=== PATIENT | female | born 1995 | race Caucasian/White ===

== ENCOUNTER 2020-04-11 20:51 | Emergency (ER) | payer MEDICAID, SELFPAY ==
[2020-04-11 23:40] VITALS: BP 151/75; PULSE 87; RESP 18; TEMP 37.1; O2SAT 98; BMI 30.3
[2020-04-12 00:29] VITALS: BP 138/81; PULSE 89; RESP 18; TEMP 36.7; O2SAT 100
[2020-04-12 02:10] LABS: MANUAL DIFF FLAG NO
[2020-04-12 02:13] LABS: Basophils Percent Auto 0.3 % (0-2); Eosinophils Absolute Auto 0.2 X10*3/uL (0.0-0.4); Eosinophils Percent Auto 2.4 % (0-4); Hemoglobin 12.6 g/dl (12.0-16.0); Imm Gran Abs Auto 0.03 X10*3/uL (0.00-0.03); Imm Gran Pct Auto 0.3 % (0.0-0.4); Lymphocytes Absolute Auto 3.4 X10*3/uL (1.2-4.9); Lymphocytes Percent Auto 33.2 % (20-40); Mean Corpuscular HGB Conc 31.5 g/dl (31.0-35.0); Mean Corpuscular Hemoglobin 27.2 pg (27.0-33.0); Mean Corpuscular Volume 86.4 fL (80-98); Mean Platelet Volume 12.7 fL (9.4-12.3); Monocytes Absolute Auto 0.7 X10*3/uL (0.1-1.2); Monocytes Percent Auto 6.6 % (2-11); Neutrophils Absolute Auto 5.8 X10*3/uL (2.0-8.3); Neutrophils Percent Auto 57.2 % (45-73); Platelet Count 162 X10*3/uL (160-400); Red Blood Count 4.63 X10*6/uL (4.20-5.50); Red Cell Distribution Width 12.5 % (11.0-16.0); White Blood Count 10.2 X10*3/uL (4.8-10.8)
--- NOTE | 2020-04-12 02:25 | CT_ITS ---
EXAMINATION: CT ABDOMEN AND PELVIS WITH CONTRAST CLINICAL INFORMATION: bilateral lower quadrant pain COMPARISON: 07/23/2017 TECHNIQUE: Multidetector volumetric images were obtained from the superior aspect of the liver through the pubic symphysis following administration 85 mL of Omnipaque 350 intravenous contrast. Sagittal and coronal reformatted images were obtained on the technologist's workstation. Oral contrast: No This CT examination was performed using dose optimization techniques as appropriate, variously including the following: *Automated exposure control *Adjustment of mA and/or kV according to patient size (this includes techniques or standardized protocols for targeted exams where dose is matched to indication/reason for exam; i.e. extremities or head) *Use of iterative reconstruction technique DLP: 968 mGy-cm FINDINGS: LUNG BASES: The visualized lung bases are unremarkable. LIVER, GALLBLADDER, AND BILIARY TREE: The liver is normal in size, shape, and attenuation. Right hepatic lobe measures 17.5 cm craniocaudal, similar to prior No focal hepatic lesion or biliary ductal dilatation is present. The gallbladder is unremarkable with no evidence of radiopaque gallstones, gallbladder wall thickening, or obvious pericholecystic inflammatory changes. PANCREAS: Unremarkable. SPLEEN: Measures 14.6 cm in greatest diameter, consistent mild splenomegaly. No focal abnormalities. ADRENAL GLANDS: Unremarkable. KIDNEYS AND URETERS: The kidneys are normal in size, shape, and attenuation. No hydronephrosis, hydroureter, or calculi seen. No perinephric stranding. BLADDER: Unremarkable. GASTROINTESTINAL TRACT: Moderate volume of stool is present throughout the colon. Stomach, small bowel, and colon are normal in caliber without wall thickening or surrounding inflammatory changes. Appendix is normal. No intraperitoneal free fluid or free air. ABDOMINAL WALL: No significant hernia is appreciated. LYMPH NODES: Numerous subcentimeter mesenteric lymph nodes are present, within normal limits by size criteria. No retroperitoneal adenopathy. VASCULAR: Unremarkable. PELVIC VISCERA: Uterus appears normal in size without focal abnormalities. There is a 3.8 cm cyst at the right ovary. Left ovary is normal in appearance. OSSEOUS STRUCTURES: Minimal degenerative osteophyte formation in the and SI joints. No acute osseous abnormalities. Bone mineralization is normal. CT/CT abdomen pelvis w con IMPRESSION: No acute intra-abdominal or intrapelvic abnormalities. A 2.8 cm simple appearing right ovarian cyst, possibly a prominent follicular cyst. No acute abnormalities are identified in the pelvis. Borderline splenomegaly, unchanged. Moderate volume of stool throughout the colon.
--- NOTE | 2020-04-12 02:26 | ED.ABDPAIN ---
HPI - Abdominal Pain General Chief Complaint: Abdominal Pain Stated Complaint: ABD PAIN Time Seen by Provider: 04/12/20 02:15 Source: patient Mode of arrival: ambulatory Limitations: no limitations History of Present Illness HPI narrative: Patient comes to the emergency room complaining of bilateral lower quadrant pain. Patient states the pain has been ongoing for about 3 weeks. Patient has history of right-sided ovarian cyst which was diagnosed in May of 2019. 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 Patient states she has a Nexplanon, she has vaginal spotting which which is baseline for her. Patient denies pain with urination. MD elicited complaint: abdominal pain Related Data Allergies Allergy/AdvReac Type Severity Reaction Status Date / Time No Known Allergies Allergy Verified 04/11/20 23:39 [No Known Allergies*] Review of Systems Review of Systems Constitutional : No Weight loss, No Fever, No Chills, No Night Sweats, No Fatigue, No Malaise ENT/Mouth : No Hearing loss, No Ear Pain, No Nasal Congestion, No Sinus Pain, No Hoarseness, No sore throat, No Rhinorrhea, No Swallowing Difficulty Eyes: No Eye Pain, No Swelling, No Redness, No Foreign Body, No Discharge, No Vision Changes Cardiovascular : No Chest Pain, No SOB, No Dyspnea on Exertion, No Orthopnea, No Edema, No Palpitations Respiratory : No Cough, No Sputum, No Wheezing, No Smoke Exposure, No Dyspnea Gastrointestinal : No Nausea, No Vomiting, No Diarrhea, No Constipation, complaining of bilateral lower quadrant pain, No Hematochezia, No Melena Genitourinary : no irregular bleeding, No Dysuria, No Urinary Frequency, No Hematuria, No Urinary Incontinence, No Urgency, No Flank Pain, No Urinary Flow Changes, No Hesitancy Musculoskeletal : No joint pain, No Myalgias, No Joint Swelling Skin : No Skin Lesions, No rash Neuro : No Weakness, No Numbness, No Paresthesias, No Loss of Consciousness, No Dizziness, No Headache Psych : No Anxiety/Panic, No Depression, No SI/HI/AH/VH, No Social Issues, Heme/Lymph: No Bruising, No Bleeding,No Lymphadenopathy Endocrine : No Polyuria, No Polydipsia, No Temperature Intolerance Physical Exam Vital Signs: Vital Signs: Last Vital Signs Temp 98.0 F 04/12/20 00:29 Pulse 89 04/12/20 00:29 Resp 18 04/12/20 00:29 BP 138/81 04/12/20 00:29 Pulse Ox 100 04/12/20 00:29 Body Mass Index 30.3 Appearance: Alert. Oriented X3. No acute distress. Eyes: Pupils equal, round and reactive to light. ENT: Pharynx normal. Neck: Normal inspection. Neck supple. No lymph nodes noted. No crepitus CVS: Normal heart rate and rhythm. Pulses normal. Normal S1 and S2 Respiratory: No respiratory distress. Breath sounds normal. No Wheezing. No rales Abdomen: Soft , [id number] tenderness in bilateral lower quadrants, more evident on the left side, questionable mild rebound tenderness on the left side No rigidity. No distention. good BS x4 Skin: Skin warm and dry. Normal skin color. Normal skin turgor. Extremities: No lower extremity edema. No lower extremity edema. No Lacerations. No Rash Neuro: Oriented X 3. No motor deficit. No sensory deficit. Moving all extermities. No slurred speech. Course Course Course Narrative: I discussed labs and imaging with the patient, no acute process, however I discussed with the patient that this may represent early appendicitis, at this time the appendix was visualized and is within normal limits. Patient was instructed to monitor her symptoms MDM - Abdominal Pain Lab Data Result diagrams: 04/12/20 03:53 04/12/20 02:05 Labs: Lab Results 04/12/20 04/12/20 04/12/20 Range/Units 02:05 02:05 02:05 WBC 10.2 (4.8-10.8) X10*3/uL RBC 4.63 (4.20-5.50) X10*6/uL Hgb 12.6 (12.0-16.0) g/dl Hct 40.0 (37-47) % MCV 86.4 (80-98) fL MCH 27.2 (27.0-33.0) pg MCHC 31.5 (31.0-35.0) g/dl RDW 12.5 (11.0-16.0) % Plt Count 162 (160-400) X10*3/uL MPV 12.7 H (9.4-12.3) fL Immature Gran % (Auto) 0.3 (0.0-0.4) % Neut % (Auto) 57.2 (45-73) % Lymph % (Auto) 33.2 (20-40) % [place] % (Auto) 6.6 (2-11) % Eos % (Auto) 2.4 (0-4) % Baso % (Auto) 0.3 (0-2) % Lymph # (Auto) 3.4 (1.2-4.9) X10*3/uL [place] # (Auto) 0.7 (0.1-1.2) X10*3/uL Eos # (Auto) 0.2 (0.0-0.4) X10*3/uL Baso # (Auto) 0.0 (0.0-0.2) X10*3/uL Abs Immat Gran (auto) 0.03 (0.00-0.03) X10*3/uL Absolute Neuts (auto) 5.8 (2.0-8.3) X10*3/uL Absolute Nucleated RBC 0.000 (0.0-0.012) X10*3/uL Nucleated RBC % (auto) 0.0 (0.0-0.2) /100WBC Hold Blue Top SEE NOTE Sodium 140 (135-145) mmol/L Potassium 4.3 (3.3-5.1) mmol/l Chloride 107 (96-108) mmol/L Carbon Dioxide 26 (22-29) mmol/L Anion Gap 11 L (12-20) BUN 9 (9-16) mg/dL Creatinine 0.58 (0.5-1.4) mg/dL Estim Creat Clear Calc 203.6 Estimated GFR > 60 Random Glucose 98 (60-115) mg/dL Calcium 9.3 (8.4-10.2) mg/dL Total Bilirubin 0.8 (0.0-1.0) mg/dL Direct Bilirubin (0.0-0.5) mg/dL AST 14 (5-31) U/L ALT 18 (0-31) U/L Alkaline Phosphatase 117 (39-117) U/L Total Protein 7.1 (6.5-8.0) g/dL Albumin 4.1 (3.5-5.0) g/dL Urine Color Urine Appearance Urine pH (5.0-8.0) Ur Specific Wilmer (1.005-1.025) Urine Protein (NEG-TRACE) MG/DL Urine Glucose (UA) (NEG) MG/DL Urine Ketones (NEG) MG/DL Urine Blood (NEG) Urine Nitrite (NEG) Ur Leukocyte Esterase (NEG) Urine Test (NEGATIVE) 04/12/20 04/12/20 04/12/20 Range/Units 02:42 03:53 03:53 WBC 9.0 (4.8-10.8) X10*3/uL RBC 4.74 (4.20-5.50) X10*6/uL Hgb 12.6 (12.0-16.0) g/dl Hct 41.2 (37-47) % MCV 86.9 (80-98) fL MCH 26.6 L (27.0-33.0) pg MCHC 30.6 L (31.0-35.0) g/dl RDW 12.3 (11.0-16.0) % Plt Count 169 (160-400) X10*3/uL MPV 12.7 H (9.4-12.3) fL Immature Gran % (Auto) 0.3 (0.0-0.4) % Neut % (Auto) 55.8 (45-73) % Lymph % (Auto) 35.3 (20-40) % [place] % (Auto) 5.9 (2-11) % Eos % (Auto) 2.3 (0-4) % Baso % (Auto) 0.4 (0-2) % Lymph # (Auto) 3.2 (1.2-4.9) X10*3/uL [place] # (Auto) 0.5 (0.1-1.2) X10*3/uL Eos # (Auto) 0.2 (0.0-0.4) X10*3/uL Baso # (Auto) 0.0 (0.0-0.2) X10*3/uL Abs Immat Gran (auto) 0.03 (0.00-0.03) X10*3/uL Absolute Neuts (auto) 5.0 (2.0-8.3) X10*3/uL Absolute Nucleated RBC 0.000 (0.0-0.012) X10*3/uL Nucleated RBC % (auto) 0.0 (0.0-0.2) /100WBC Hold Blue Top Sodium (135-145) mmol/L Potassium (3.3-5.1) mmol/l Chloride (96-108) mmol/L Carbon Dioxide (22-29) mmol/L Anion Gap (12-20) BUN (9-16) mg/dL Creatinine (0.5-1.4) mg/dL Estim Creat Clear Calc Estimated GFR Random Glucose (60-115) mg/dL Calcium (8.4-10.2) mg/dL Total Bilirubin 0.9 (0.0-1.0) mg/dL Direct Bilirubin 0.4 (0.0-0.5) mg/dL AST 13 (5-31) U/L ALT 18 (0-31) U/L Alkaline Phosphatase 117 (39-117) U/L Total Protein 7.1 (6.5-8.0) g/dL Albumin 4.1 (3.5-5.0) g/dL Urine Color YELLOW Urine Appearance CLEAR Urine pH 6.0 (5.0-8.0) Ur Specific Wilmer >= 1.030 H (1.005-1.025) Urine Protein NEG (NEG-TRACE) MG/DL Urine Glucose (UA) NEG (NEG) MG/DL Urine Ketones NEG (NEG) MG/DL Urine Blood NEG (NEG) Urine Nitrite NEG (NEG) Ur Leukocyte Esterase NEG (NEG) Urine Test NEGATIVE (NEGATIVE) Discharge Plan Discharge Clinical Impression: Abdominal pain Qualifiers: Abdominal location: generalized Qualified Code(s): R10.84 - Generalized abdominal pain Patient Disposition: Home, Self-Care Instructions: Abdominal Pain (ED) Additional Instructions: Please follow-up with your primary care physician tomorrow. If you have any worsening or new symptoms, please return to the emergency room or call 911 REPLACED BY [facility] Past Medical History Medical History HPV in female Hypothyroid Ovarian cyst Preeclampsia Social History Social History Advance Directives: No
[2020-04-12 02:34] LABS: Alanine Aminotransferase 18 U/L (0-31); Albumin Level 4.1 g/dL (3.5-5.0); Alkaline Phosphatase 117 U/L (39-117); Anion Gap 11 (12-20); Aspartate Amino Transferase 14 U/L (5-31); Bilirubin Total 0.8 mg/dL (0.0-1.0); Blood Urea Nitrogen 9 mg/dL (9-16); Calcium 9.3 mg/dL (8.4-10.2); Carbon Dioxide 26 mmol/L (22-29); Chloride 107 mmol/L (96-108); Creatinine Clr Calc Pharmacy 203.6; Estimated Glomerular Filt Rate > 60; Glucose Random 98 mg/dL (60-115); Potassium 4.3 mmol/l (3.3-5.1); Sodium 140 mmol/L (135-145); Total Protein 7.1 g/dL (6.5-8.0)
[2020-04-12 03:10] LABS: Glucose Urine UA NEG (NEG); Leukocyte Esterase Urine NEG (NEG); Nitrite Urine NEG (NEG); Specific Gravity - Urine >= 1.030 (1.005-1.025); Urine Blood NEG (NEG); Urine Ketones NEG (NEG); Urine Protein NEG (NEG-TRACE)
[2020-04-12 03:11] LABS: Appearance Urine CLEAR; Color Urine YELLOW
[2020-04-12 03:23] LABS: UPreg QC Valid YES; Urine Pregnancy NEGATIVE (NEGATIVE)
[2020-04-12 03:57] LABS: MANUAL DIFF FLAG NO
[2020-04-12 03:58] LABS: Basophils Percent Auto 0.4 % (0-2); Eosinophils Absolute Auto 0.2 X10*3/uL (0.0-0.4); Eosinophils Percent Auto 2.3 % (0-4); Hematocrit 41.2 % (37-47); Hemoglobin 12.6 g/dl (12.0-16.0); Imm Gran Abs Auto 0.03 X10*3/uL (0.00-0.03); Imm Gran Pct Auto 0.3 % (0.0-0.4); Lymphocytes Absolute Auto 3.2 X10*3/uL (1.2-4.9); Lymphocytes Percent Auto 35.3 % (20-40); Mean Corpuscular HGB Conc 30.6 g/dl (31.0-35.0); Mean Corpuscular Hemoglobin 26.6 pg (27.0-33.0); Mean Corpuscular Volume 86.9 fL (80-98); Mean Platelet Volume 12.7 fL (9.4-12.3); Monocytes Absolute Auto 0.5 X10*3/uL (0.1-1.2); Monocytes Percent Auto 5.9 % (2-11); Neutrophils Percent Auto 55.8 % (45-73); Platelet Count 169 X10*3/uL (160-400); Red Blood Count 4.74 X10*6/uL (4.20-5.50); Red Cell Distribution Width 12.3 % (11.0-16.0)
[2020-04-12] MEDS: iohexoL 350 MG/ML 100 ML INFUS..BTL 85 ML IV (04:04)
[2020-04-12 04:32] LABS: Alanine Aminotransferase 18 U/L (0-31); Albumin Level 4.1 g/dL (3.5-5.0); Alkaline Phosphatase 117 U/L (39-117); Aspartate Amino Transferase 13 U/L (5-31); Bilirubin Direct 0.4 mg/dL (0.0-0.5); Bilirubin Total 0.9 mg/dL (0.0-1.0); Total Protein 7.1 g/dL (6.5-8.0)
[2020-04-12] MEDS: Ketorolac Tromethamine 30 MG/ML VIAL IVPUSH (06:07)
== END 2020-04-12 06:14 | disposition home or self-care (01) ==
PROVIDERS: Emergency Provider Emergency Medicine; PCP Internal Medicine
DX: R10.30 Lower abdominal pain, unspecified (principal); N83.201 Unspecified ovarian cyst, right side
CPT/HCPCS: 36415; 74177; 80053; 80076; 81003; 81025; 82248; 85025; 96374; 99283; 99284; J1885; Q9967

== ENCOUNTER 2020-04-16 10:37 | Emergency (ER) | payer MEDICAID, SELFPAY ==
[2020-04-16 10:56] VITALS: BP 171/89; PULSE 68; RESP 16; TEMP 36.9; O2SAT 100; BMI 30.3
--- NOTE | 2020-04-16 11:00 | ED_ITS ---
HPI - Dental/Oral General Chief complaint: Dental/Oral Stated complaint: TOOTHACHE Time Seen by Provider: 04/16/20 10:59 Source: patient Mode of arrival: ambulatory Limitations: no limitations History of Present Illness HPI Narrative: States has tried [id number] Tylenol and ibuprofen has not helped has been doing mouth washes and Orajel without relief. MD Complaint: tooth pain Location: Tooth # (31/32) Teeth map: 1. Partially Chipped with extensive decay. Onset (ago): day(s) (3 days ) Severity: severe Relieving factors: nothing Treatment prior to arrival: topical analgesic, oral analgesic and other (Await ing dentist appointment) Related Data Previous Rx's Medication Instructions Recorded ibuprofen 800 mg PO Q8H PRN #30 tab 04/16/20 oxycodone-acetaminophen [Percocet] 1 tab PO Q8H PRN 3 Days #7 tab 04/16/20 penicillin V potassium 500 mg PO BID 10 Days #20 tab 04/16/20 Allergies Allergy/AdvReac Type Severity Reaction Status Date / Time No Known Allergies Allergy Verified 04/11/20 23:39 [No Known Allergies*] Review of Systems Review of Systems: Constitutional: No Weight loss, No Fever, No Chills, No Night Sweats, No Fatigue, No Malaise ENT/Mouth: No Hearing loss, No Ear Pain, No Nasal Congestion, No Sinus Pain, No Hoarseness, No sore throat, No Rhinorrhea, No Swallowing Difficulty Eyes: No Eye Pain, No Swelling, No Redness, No Foreign Body, No Discharge, No Vision Changes Cardiovascular: No Chest Pain, No SOB Respiratory: No Cough, No Sputum, No Wheezing, No Smoke Exposure, No Dyspnea Gastrointestinal: Negative Genitourinary: Negative Musculoskeletal: No joint pain, No Myalgias, No Joint Swelling Skin: No Skin Lesions, No rash Neuro: Negative Psych: No Social Issues Heme/Lymph: No Bruising, No Bleeding,No Lymphadenopathy Endocrine: Negative Yes all other systems are reviewed and are negative PMFSH Past Medical History Medical History HPV in female Hypothyroid Ovarian cyst Preeclampsia Social History Social History Advance Directives: No Advance Directives Information Provided: Yes Physical Exam Vital Signs: Vital Signs: Reviewed HENMT: Teeth image: 1. Number 31 partially chipped at the midline with exten sive decay number [address] Number [address] No obvious signs of gingival infection or abscess. Resp: Auscultation: clear to auscultation bilaterally Cardio: Rhythm: regular rhythm Heart sounds: S1 normal heart sound present and S2 normal heart sound present MDM - Dental/Oral MDM Narrative Medical decision making narrative: Dental fracture with extensive decay having pain no obvious signs or symptoms of abscess. Will possibly need extraction awaiting referral from dentist for or surgery for this. Mass pat reviewed no concerning pattern. Has tried [id number] Tylenol and ibuprofen will give her prescription strength ibuprofen, stronger analgesia and antibiotics with close outpatient follow-up. Differential Diagnosis Differential diagnosis: Likely dental caries, toothache, dental abscess and fracture of tooth; Unlikely gingival abscess and aphthous ulcer Medical Records Attestation: I reviewed the patient's medical records. Lab Data Attestation: I reviewed the patient's lab results. Discharge Plan Discharge Clinical Impression: Pain due to dental caries Patient Disposition: Home, Self-Care Instructions: Toothache (ED) Additional Instructions: Soft food diet Push fluids Mouth rinses Continue to use your mouthwash Chew on the good side Avoid any very cold or very hot food Take your antibiotic as prescribed Ibuprofen for [id number] pain Percocet only for severe pain; this is very addictive narcotic medication only take this for short course. Do not drink alcohol or drive motor vehicle or operating any machinery. Follow-up with a dentist tomorrow for further evaluation and treatment. Return if any concerns or worsening symptoms Thank you Prescriptions: New ibuprofen 800 mg tablet 800 mg PO Q8H PRN (Reason: pain) Qty: 30 RF: 0 oxycodone-acetaminophen [Percocet] 5-325 mg tablet 1 tab PO Q8H PRN (Reason: pain) 3 Days Qty: 7 RF: 0 penicillin V potassium 500 mg tablet 500 mg PO BID 10 Days Qty: 20 RF: 0 Referrals: [facility], dental [Other] - 2 days Iva Howard MD [Primary Care Provider] - 1 week
== END 2020-04-16 11:27 | disposition home or self-care (01) ==
LOC: HO.ED 11:03
PROVIDERS: Emergency Provider Emergency Medicine Emergency Medical Services; PCP Internal Medicine
DX: K02.9 Dental caries, unspecified (principal)
CPT/HCPCS: 99283; 99284

== ENCOUNTER 2022-12-03 19:06 | Emergency (ER) | payer MEDICAID, SELFPAY ==
--- NOTE | ~2022-12-03 | XR_ITS ---
EXAMINATION: XR CHEST CLINICAL INFORMATION: Chest pain COMPARISON: Previous chest x-ray August 2019 TECHNIQUE: Frontal view of the chest was obtained. FINDINGS: No significant abnormality is noted involving the heart, lungs, mediastinum, bony thorax or soft tissues. XR/XR chest 1V IMPRESSION: Unremarkable examination.
--- NOTE | 2022-12-03 19:09 | ECG_ITS ---
Test Reason : PALPATION Blood Pressure : / mmHG Vent. Rate : 075 BPM Atrial Rate : 075 BPM P-R Int : 142 ms QRS Dur : 088 ms QT Int : 356 ms P-R-T Axes : 002 052 004 degrees QTc Int : 397 ms Normal sinus rhythm Normal ECG When compared with ECG of 21-AUG-2017 19:12, ST no longer elevated in Anterior leads Nonspecific T wave abnormality now evident in Anterior leads Referred By: Thomas Carroll Electronically Signed By:LUCIUS GU
--- NOTE | 2022-12-03 19:42 | ED_ITS ---
HPI - General Adult General Chief complaint: Dizziness Stated complaint: Palpitations/Dizziness Time Seen by Provider: 12/03/22 23:59 Source: patient Mode of arrival: ambulatory Limitations: no limitations History of Present Illness HPI narrative: 27-year-old female came in for evaluation of multiple syncopal episode over the past 2 months. Today patient felt she almost going to pass out but never did and was feeling left arm numbness. Patient stated before the syncope she gets a feeling of nauseous and she feels palpitation. No SOB, no CP, no blurry vision, no headache, no neck pain, no abdominal pain, no nausea, no diarrhea, has been eating and drinking okay with no concern of dehydration. Patient declined chance of being had tubal ligation, no vaginal bleed or discharge. Related Data Previous Rx's Medication Instructions Recorded ibuprofen 800 mg tablet 800 mg PO Q8H PRN pain #30 tabs 04/16/20 oxycodone-acetaminophen 5 mg-325 1 tab PO Q8H PRN pain 3 days #7 04/16/20 mg tablet (Percocet) tabs penicillin V potassium 500 mg 500 mg PO BID 10 days #20 tabs 04/16/20 tablet Allergies Allergy/AdvReac Type Severity Reaction Status Date / Time No Known Allergies Allergy Verified 04/11/20 23:39 [No Known Allergies*] Review of Systems 2 Review of Systems: All other systems are reviewed and are negative Constitutional: Reports as per HPI and Reports no additional constitutional complaints Eyes: Reports as per HPI and Reports no additional eye complaints Reports system reviewed and no additional complaints, except as documented Cardiovascular: Reports as per HPI and Reports no additional cardiovascular complaints Respiratory: Reports as per HPI and Reports no additional respiratory complaints Gastrointestinal: Reports as per HPI and Reports no additional gastrointestinal complaints Genitourinary: Reports no additional female genitourinary complaints Musculoskeletal: Reports no additional musculoskeletal complaints Skin/Breast: Reports system reviewed and no additional complaints, except as docu Psychiatric: Reports no additional psychiatric complaints Endocrine: Reports no additional endocrine complaints Hematologic/Lymphatic: Reports no additional hematologic/lymphatic complaints Allergic/Immunologic: Reports no additional allergic/immunologic complaints Reports system reviewed and no additional complaints, except as documented and Reports Abnormal speech present PMFSH Past Medical History Medical History HPV in female Hypothyroid Ovarian cyst Preeclampsia Social History Social History Advance Directives: No Advance Directives Information Provided: No Physical Exam ED Vital Signs: Vital Signs - 24 hr 12/03/22 19:45 12/03/22 23:50 Temperature 98.0 F 98.3 F Pulse Rate 77 67 Respiratory Rate 20 18 Blood Pressure 143/77 H 100/64 Pulse Oximetry 100 98 Oxygen Delivery Method Room Air Room Air BMI result Body Mass Index 37.0 Vital signs have been reviewed as appeared to be correct. Blood pressure normal. Heart rate normal. Respiration rate normal. Temperature normal. Oxygen saturation normal. Appearance: Alert. Oriented X3. No acute distress. Head: Normal external exam. Normocephalic. Atraumatic. No Mtz signs noted. No raccoon eyes noted Eyes: PERRLA. EOMI. Conjunctiva and sclera normal. Eyelids normal. ENT: TM's Normal. Pharynx normal. Uvula midline. Moist mucous membranes. No trismus noted. No drooling noted. No muffled voice noted. Neck: Normal inspection. Neck supple. FROM. No adenopathy. Thyroid Normal. No meningeal signs. No neck mass noted. CVS: Normal heart rate and rhythm. Heart sound normal. No murmurs noted. Pulses normal throughout. Respiratory: No respiratory distress. Painless inspiration. Breath sounds normal. No wheezes/rales/rhonchi noted. Chest nontender. No accessory muscle usage noted or decreased air movement noted. Abdomen: Soft and nontender. Bowel sounds normal in all 4 quadrants. No distention noted. No organomegaly noted. No visible injury noted. Back: No CVA tenderness. Full range of motion noted. Skin: Skin warm and dry. Normal skin color. Normal skin turgor. No rashes/lesions/lacerations noted. Extremities: No lower extremity edema. Extremities exhibit normal range of motion. Extremities nontender. Neuro: Oriented X 3. Cranial nerve exam: II-XII are grossly intact No motor deficit. No sensory deficit. Reflexes normal. Course Course Course Narrative: This is an RME: Additional HPI, ROS, PE not included below will be deferred to primary provider. Patient is a 26 year old female presenting with multiple syncopal episodes. She reports that these episodes have caused her to have falls, once down from the second floor down the stairs. She reports that she feels nauseous when these spells go on. She reports a history of hyperthyroidism, not on medications. Plan- labs, urine, ekg Reevaluation(s) Reevaluation #1: 27-year-old female otherwise healthy presented with multiple episodes of syncope over the past 2 months, normal looking EKG and labs. As discussed with the patient she will need to follow up with [facility] as an outpatient. Time: 00:25 Medical Decision Making Differential Diagnosis Differential Diagnoses: The differential diagnosis associated with the presentation includes (Dysrhythmia, ACS, pulmonary embolism, pneumonia, pneumothorax) Admission/Observation Consideration of admission/observation: Escalation of care including admission/observation considered Lab Data MDM Lab Attestation statement: I reviewed the patient's lab results. 12/03/22 20:23 12/03/22 20: Labs: Lab Results 12/03/22 12/03/22 12/03/22 Range/Units 20:23 20:23 20:23 WBC 9.3 (4.8-10.8) X10*3/uL RBC 4.43 (4.20-5.50) X10*6/uL Hgb 11.5 L (12.0-16.0) g/dl Hct 37.3 (37.0-47.0) % MCV 84.2 (80.0-98.0) fL MCH 26.0 L (27.0-33.0) pg MCHC 30.8 L (31.0-35.0) g/dl RDW 15.3 (11.0-16.0) % Plt Count 189 (160-400) X10*3/uL MPV 12.2 (9.4-12.3) fL Immature Gran % (Auto) 0.5 H (0.0-0.4) % Neut % (Auto) 56.7 (45-73) % Lymph % (Auto) 33.4 (20-40) % [place] % (Auto) 5.8 (2-11) % Eos % (Auto) 3.0 (0-4) % Baso % (Auto) 0.6 (0-2) % Lymph # (Auto) 3.1 (1.2-4.9) X10*3/uL [place] # (Auto) 0.5 (0.1-1.2) X10*3/uL Eos # (Auto) 0.3 (0.0-0.4) X10*3/uL Baso # (Auto) 0.1 (0.0-0.2) X10*3/uL Abs Immat Gran (auto) 0.05 H (0.00-0.03) X10*3/uL Absolute Neuts (auto) 5.3 (2.0-8.3) x10*3/uL Absolute Nucleated RBC 0.000 (0.0-0.012) X10*3/uL Nucleated RBC % (auto) 0.0 (0.0-0.2) /100WBC PT (11.1-13.3) SEC INR (0.9-1.1) D-Dimer High Sensitivty NG/ML Sodium 138 (135-145) mmol/L Potassium 3.7 (3.3-5.1) mmol/L Chloride 110 H (96-108) mmol/L Carbon Dioxide 23 (22-29) mmol/L Anion Gap 9 L (12-20) BUN 11 (9-16) mg/dL Creatinine 0.80 (0.5-1.4) mg/dL Estim Creat Clear Calc 155.7 Estimated GFR > 60 Random Glucose 100 (60-115) mg/dL Calcium 9.7 (8.4-10.2) mg/dL Magnesium 2.0 (1.6-2.6) mg/dL Total Bilirubin 0.8 (0.0-1.0) mg/dL AST 16 (5-31) U/L ALT 24 (0-31) U/L Alkaline Phosphatase 64 (39-117) U/L Troponin I High Sens < 2.7 (<3.5-17.0) ng/L Total Protein 7.7 (6.5-8.0) g/dL Albumin 4.1 (3.5-5.0) g/dL Urine Color Urine Appearance Urine pH (5.0-9.0) Ur Specific [place] (1.005-1.025) Urine Protein (Neg-Trace) mg/dL Urine Glucose (UA) (Negative) mg/dL Urine Ketones (Negative) mg/dL Urine Blood (Negative) Urine Nitrite (Negative) Ur Leukocyte Esterase (Negative) COVID-19 (THEA) (Negative) COVID-19 Clin Com 12/03/22 12/03/22 12/03/22 Range/Units 20:23 20:23 20:23 WBC (4.8-10.8) X10*3/uL RBC (4.20-5.50) X10*6/uL Hgb (12.0-16.0) g/dl Hct (37.0-47.0) % MCV (80.0-98.0) fL MCH (27.0-33.0) pg MCHC (31.0-35.0) g/dl RDW (11.0-16.0) % Plt Count (160-400) X10*3/uL MPV (9.4-12.3) fL Immature Gran % (Auto) (0.0-0.4) % Neut % (Auto) (45-73) % Lymph % (Auto) (20-40) % [place] % (Auto) (2-11) % Eos % (Auto) (0-4) % Baso % (Auto) (0-2) % Lymph # (Auto) (1.2-4.9) X10*3/uL [place] # (Auto) (0.1-1.2) X10*3/uL Eos # (Auto) (0.0-0.4) X10*3/uL Baso # (Auto) (0.0-0.2) X10*3/uL Abs Immat Gran (auto) (0.00-0.03) X10*3/uL Absolute Neuts (auto) (2.0-8.3) x10*3/uL Absolute Nucleated RBC (0.0-0.012) X10*3/uL Nucleated RBC % (auto) (0.0-0.2) /100WBC PT 10.7 L (11.1-13.3) SEC INR 0.9 (0.9-1.1) D-Dimer High Sensitivty 189 NG/ML Sodium (135-145) mmol/L Potassium (3.3-5.1) mmol/L Chloride (96-108) mmol/L Carbon Dioxide (22-29) mmol/L Anion Gap (12-20) BUN (9-16) mg/dL Creatinine (0.5-1.4) mg/dL Estim Creat Clear Calc Estimated GFR Random Glucose (60-115) mg/dL Calcium (8.4-10.2) mg/dL Magnesium 2.0 (1.6-2.6) mg/dL Total Bilirubin (0.0-1.0) mg/dL AST (5-31) U/L ALT (0-31) U/L Alkaline Phosphatase (39-117) U/L Troponin I High Sens (<3.5-17.0) ng/L Total Protein (6.5-8.0) g/dL Albumin (3.5-5.0) g/dL Urine Color Urine Appearance Urine pH (5.0-9.0) Ur Specific [place] (1.005-1.025) Urine Protein (Neg-Trace) mg/dL Urine Glucose (UA) (Negative) mg/dL Urine Ketones (Negative) mg/dL Urine Blood (Negative) Urine Nitrite (Negative) Ur Leukocyte Esterase (Negative) COVID-19 (THEA) Negative (Negative) COVID-19 Clin Com See Note 12/03/22 Range/Units 21:04 WBC (4.8-10.8) X10*3/uL RBC (4.20-5.50) X10*6/uL Hgb (12.0-16.0) g/dl Hct (37.0-47.0) % MCV (80.0-98.0) fL MCH (27.0-33.0) pg MCHC (31.0-35.0) g/dl RDW (11.0-16.0) % Plt Count (160-400) X10*3/uL MPV (9.4-12.3) fL Immature Gran % (Auto) (0.0-0.4) % Neut % (Auto) (45-73) % Lymph % (Auto) (20-40) % [place] % (Auto) (2-11) % Eos % (Auto) (0-4) % Baso % (Auto) (0-2) % Lymph # (Auto) (1.2-4.9) X10*3/uL [place] # (Auto) (0.1-1.2) X10*3/uL Eos # (Auto) (0.0-0.4) X10*3/uL Baso # (Auto) (0.0-0.2) X10*3/uL Abs Immat Gran (auto) (0.00-0.03) X10*3/uL Absolute Neuts (auto) (2.0-8.3) x10*3/uL Absolute Nucleated RBC (0.0-0.012) X10*3/uL Nucleated RBC % (auto) (0.0-0.2) /100WBC PT (11.1-13.3) SEC INR (0.9-1.1) D-Dimer High Sensitivty NG/ML Sodium (135-145) mmol/L Potassium (3.3-5.1) mmol/L Chloride (96-108) mmol/L Carbon Dioxide (22-29) mmol/L Anion Gap (12-20) BUN (9-16) mg/dL Creatinine (0.5-1.4) mg/dL Estim Creat Clear Calc Estimated GFR Random Glucose (60-115) mg/dL Calcium (8.4-10.2) mg/dL Magnesium (1.6-2.6) mg/dL Total Bilirubin (0.0-1.0) mg/dL AST (5-31) U/L ALT (0-31) U/L Alkaline Phosphatase (39-117) U/L Troponin I High Sens (<3.5-17.0) ng/L Total Protein (6.5-8.0) g/dL Albumin (3.5-5.0) g/dL Urine Color Yellow Urine Appearance Clear Urine pH 6.5 (5.0-9.0) Ur Specific [place] 1.025 (1.005-1.025) Urine Protein Negative (Neg-Trace) mg/dL Urine Glucose (UA) Negative (Negative) mg/dL Urine Ketones Negative (Negative) mg/dL Urine Blood Negative (Negative) Urine Nitrite Negative (Negative) Ur Leukocyte Esterase Negative (Negative) COVID-19 (THEA) (Negative) COVID-19 Clin Com Independent Interpretation I performed an independent interpretation of an: EKG (Normal sinus rhythm at 70 meds, normal axis deviation, normal intervals, nonspecific ST-T changes.) and Plain X-Ray (Unremarkable examination.) Radiology Impression Discussion of test interpretation with radiology: I have reviewed the radiologist's reading. Scores Heart Score History: -0- slightly suspicious ECG: -0- normal Age: -0- < or = 45 Risk factory: -0- no risk factors known Troponin: -0- < or = normal limit Score: 0 Risk: 1.7% Discharge Plan Discharge Clinical Impression: Syncope and collapse Patient Disposition: Home, Self-Care Instructions: Syncope in Older Adults (ED) Prescriptions: No Action ibuprofen 800 mg tablet 800 mg PO Q8H PRN (Reason: pain) Qty: 30 0RF oxycodone-acetaminophen [Percocet] 5-325 mg tablet 1 tab PO Q8H PRN (Reason: pain) 3 Days Qty: 7 0RF penicillin V potassium 500 mg tablet 500 mg PO BID 10 Days Qty: 20 0RF Referrals: Iva Howard MD [Primary Care Provider] - Deshaun Watts MD [Physician] -
[2022-12-03 19:45] VITALS: BP 143/77; PULSE 77; RESP 20; TEMP 36.7; O2SAT 100; BMI 37.0
[2022-12-03 20:31] LABS: MANUAL DIFF FLAG NO
[2022-12-03 20:32] LABS: Basophils Absolute Auto 0.1 X10*3/uL (0.0-0.2); Basophils Percent Auto 0.6 % (0-2); Eosinophils Absolute Auto 0.3 X10*3/uL (0.0-0.4); Hematocrit 37.3 % (37.0-47.0); Hemoglobin 11.5 g/dl (12.0-16.0); Imm Gran Abs Auto 0.05 X10*3/uL (0.00-0.03); Imm Gran Pct Auto 0.5 % (0.0-0.4); Lymphocytes Absolute Auto 3.1 X10*3/uL (1.2-4.9); Lymphocytes Percent Auto 33.4 % (20-40); Mean Corpuscular HGB Conc 30.8 g/dl (31.0-35.0); Mean Corpuscular Volume 84.2 fL (80.0-98.0); Mean Platelet Volume 12.2 fL (9.4-12.3); Monocytes Absolute Auto 0.5 X10*3/uL (0.1-1.2); Monocytes Percent Auto 5.8 % (2-11); Neutrophils Absolute Auto 5.3 x10*3/uL (2.0-8.3); Neutrophils Percent Auto 56.7 % (45-73); Platelet Count 189 X10*3/uL (160-400); Red Blood Count 4.43 X10*6/uL (4.20-5.50); Red Cell Distribution Width 15.3 % (11.0-16.0); White Blood Count 9.3 X10*3/uL (4.8-10.8)
[2022-12-03 20:48] LABS: INTERNATIONAL NORM RATIO 0.9 (0.9-1.1); Prothrombin Time 10.7 SEC (11.1-13.3)
[2022-12-03 20:50] LABS: COVID-19 Test Negative (Negative); D Dimer High Sensitivity 189 NG/ML; IDNOW Serial# 08D9AD1C
[2022-12-03 20:52] LABS: Alanine Aminotransferase 24 U/L (0-31); Albumin Level 4.1 g/dL (3.5-5.0); Alkaline Phosphatase 64 U/L (39-117); Anion Gap 9 (12-20); Aspartate Amino Transferase 16 U/L (5-31); Bilirubin Total 0.8 mg/dL (0.0-1.0); Blood Urea Nitrogen 11 mg/dL (9-16); Calcium 9.7 mg/dL (8.4-10.2); Carbon Dioxide 23 mmol/L (22-29); Chloride 110 mmol/L (96-108); Creatinine Clr Calc Pharmacy 155.7; Estimated Glomerular Filt Rate > 60; Glucose Random 100 mg/dL (60-115); Potassium 3.7 mmol/L (3.3-5.1); Sodium 138 mmol/L (135-145); Total Protein 7.7 g/dL (6.5-8.0)
[2022-12-03 21:17] LABS: Appearance Urine Clear; Color Urine Yellow; Glucose Urine UA Negative (Negative); Leukocyte Esterase Urine Negative (Negative); Nitrite Urine Negative (Negative); PH 6.5 (5.0-9.0); Specific Gravity - Urine 1.025 (1.005-1.025); Urine Blood Negative (Negative); Urine Ketones Negative (Negative); Urine Protein Negative (Neg-Trace)
[2022-12-03 21:26] LABS: Troponin-I High Sensitivity < 2.7 ng/L (<3.5-17.0)
[2022-12-03 23:50] VITALS: BP 100/64; PULSE 67; RESP 18; TEMP 36.8; O2SAT 98
[2022-12-04 00:26] LABS: UPreg QC Valid YES; Urine Pregnancy NEGATIVE (NEGATIVE)
[2022-12-04 01:48] VITALS: BP 110/52; PULSE 76; RESP 18; TEMP 36.7; O2SAT 98
[2022-12-04 03:51] VITALS: BP 115/61; PULSE 75; RESP 18; TEMP 36.7; O2SAT 98
== END 2022-12-04 03:58 | disposition home or self-care (01) ==
PROVIDERS: Physician Assistant; Emergency Provider Emergency Medicine; PCP Internal Medicine
DX: R55 Syncope and collapse (principal); R00.2 Palpitations; R42 Dizziness and giddiness; Z20.822 Contact with and (suspected) exposure to COVID-19; Z20.828 Contact with and (suspected) exposure to other viral communicable diseases; Z79.899 Other long term (current) drug therapy
CPT/HCPCS: 36415; 71045; 80053; 81003; 81025; 83735; 84484; 85025; 85379; 85610; 87635; 93005; 99284

== ENCOUNTER 2022-12-29 21:16 | Emergency (ER) | payer MEDICAID, SELFPAY ==
[2022-12-29 21:40] VITALS: BP 145/59; PULSE 79; RESP 17; TEMP 36.7; O2SAT 98; BMI 35.9
[2022-12-29 23:09] LABS: COVID-19 Test Negative (Negative); IDNOW Serial# 08D9AD1C; IDNOW Serial# BCCEAD1C; Influenza A Negative (Negative); Influenza B2 Negative (Negative)
--- NOTE | 2022-12-29 23:33 | ED.GENADULT ---
HPI - General Adult General Chief complaint: General Medical Stated complaint: Sore throat, dental pain on left side Time Seen by Provider: 12/29/22 22:55 Source: patient Mode of arrival: ambulatory Limitations: no limitations History of Present Illness HPI narrative: Patient is a 27-year-old female presenting to the emergency department with complaint of dental pain to left upper jaw as well as sore throat. Patient states the dental pain began approximately 2 days ago, sore throat yesterday. Denies fevers. States she has had increased stress, that her CT recently delivered cans and she has been at the that. She took 800 mg ibuprofen with little relief. Called her dentist but was unable to get appointment for 3-4 weeks. Denies cough or shortness of breath. Denies any discharge or drainage from affected tooth. complaint: Dental pain, sore throat Onset (ago): day(s) Location: mouth Radiation: non-radiation Severity: severe Quality: aching Pain Consistency: constant Relieving factors: none Exacerbating factors: none Associated symptoms: other (Sore throat) Treatments prior to arrival: NSAID Related Data Previous Rx's Medication Instructions Recorded ibuprofen 800 mg tablet 800 mg PO Q8H PRN pain #30 tabs 04/16/20 oxycodone-acetaminophen 5 mg-325 1 tab PO Q8H PRN pain 3 days #7 04/16/20 mg tablet (Percocet) tabs penicillin V potassium 500 mg 500 mg PO BID 10 days #20 tabs 04/16/20 tablet amoxicillin 875 mg-potassium 1 tab PO BID #20 tabs 12/30/22 clavulanate 125 mg tablet Allergies Allergy/AdvReac Type Severity Reaction Status Date / Time No Known Allergies Allergy Verified 04/11/20 23:39 [No Known Allergies*] Review of Systems Review of Systems: As per HPI. Yes all other systems are reviewed and are negative Constitutional: Constitutional: Reports as per HPI PMF Past Medical History Medical History HPV in female Hypothyroid Ovarian cyst Preeclampsia Social History Social History Advance Directives: No Advance Directives Information Provided: No Physical Exam ED Vital Signs: Vital Signs - 24 hr 12/29/22 21:40 Temperature 98.1 F Pulse Rate 79 Respiratory Rate 17 Blood Pressure 145/59 H Pulse Oximetry 98 Oxygen Delivery Method Room Air BMI result Body Mass Index 35.9 Vital signs have been reviewed and appear to be correct. Blood pressure normal. Heart rate normal. Respiratory rate normal. Temperature normal. Oxygen saturation normal. Const General: cooperative, healthy appearing and no acute distress Orientation/consciousness: oriented to person, oriented to place, oriented to time and patient oriented x3 Limitations: no limitations HENMT Head: Yes normocephalic and Yes atraumatic Ears: external ears normal General nose exam: Normal external nose present Face and sinus: Yes face symmetric Mouth: oropharynx normal and moist mucous membranes Teeth and gingiva: abnormal tooth and associated gingiva (#16) upper left tender, with associated gingival edema and enamel fractured and poor dentition Throat: Yes uvula midline, Yes posterior oropharynx abnormal (Positive erythema, no edema or exudates) and No uvular edema Eyes Pupils: Equal, round and reactive pupils present Neck Neck: Yes normal visual inspection, Yes no lymphadenopathy and Yes supple Resp Effort & Inspection: normal respiratory effort and able to speak in complete sentences Auscultation: clear to auscultation bilaterally Cardio Rate: regular rate Rhythm: regular rhythm Heart sounds: S1 normal heart sound present and S2 normal heart sound present GI Palpation (GI): Soft to palpation and nontender Auscultation: normoactive bowel sounds General: Yes no CVA tenderness Back/Spine/Pelvis Back: no CVA tenderness Skin General skin exam: elasticity normal and turgor normal Neuro General: oriented to person, oriented to place, oriented to time, patient oriented x3, moves all extremities, no focal motor deficits and CN's II-XI intact bilaterally Cranial nerves: Yes Equal, round and reactive pupils present Cognition (Neuro): normal cognition Extrem General: Yes full ROM, Yes no pedal edema and Yes no calf tenderness Psych Mental Status: mental status grossly normal Affect: normal affect Thought process: Normal thought process present Medical Decision Making Medical Decision Making MDM Narrative: Patient is a 27-year-old female presenting to the emergency department with complaint of dental pain to left upper jaw as well as sore throat. On exam patient is awake, A+Ox3, VS WNL, afebrile, normal neurological exam without focal deficits, physical exam findings as above. Given reported symptoms and physical exam findings, initial differential includes dental pain, dental abscess, strep pharyngitis, viral illness. Strep swab positive, Covid and flu negative. Patient updated on results and all questions answered. Will prescribe Augmentin which will cover strep as well as dental infection. Instructed patient to contact dentist office to establish an appointment. Advised to gargle with warm salt water several times daily. Tylenol and ibuprofen as needed for pain or fever. Return precautions discussed at bedside. Patient verbalized understanding of and agreement with plan. Differential Diagnosis Differential Diagnoses: The differential diagnosis associated with the presentation includes As per [facility]. Lab Data [facility] Lab Attestation statement: I reviewed the patient's lab results. As per [facility]. Labs: Lab Results 12/29/22 12/30/22 Range/Units 22:40 00:53 COVID-19 (THEA) Negative (Negative) COVID-19 Clin Com See Note Influenza Type A (ELIJAH) Negative (Negative) Influenza Type B (ELIJAH) Negative (Negative) Influenza A & B Note See Note S. pyogenes GrpA ELIJAH Positive A (Negative) External Record Review External record reviewed: Inpatient record, Office record and Outpatient record Prescription Management I considered prescription management with: Antibiotic Discharge Plan Discharge Clinical Impression: Acute streptococcal pharyngitis, Dental infection Patient Disposition: Home, Self-Care Instructions: Pharyngitis (ED), Strep Throat (DC) Additional Instructions: You were evaluated in the emergency department today for a sore throat and dental pain. Your strep swab was positive. Your COVID and flu swabs were negative. You are being prescribed Augmentin which is an antibiotic that will treat both your strep throat and your dental infection. Complete the full course of antibiotics as prescribed. Be sure to drink adequate fluids. You can use Tylenol and ibuprofen per package directions as needed for discomfort or fever. You can also gargle with warm salt water several times daily. Follow-up with your primary care provider this week. Return to the emergency department if you develop difficulty swallowing, worsening pain, shortness of breath, are unable to swallow your saliva, or any other concerning symptoms. Please contact your dentist to schedule an appointment. Prescriptions: New amoxicillin-pot clavulanate 875-125 mg tablet 1 tab PO BID Qty: 20 0RF No Action ibuprofen 800 mg tablet 800 mg PO Q8H PRN (Reason: pain) Qty: 30 0RF oxycodone-acetaminophen [Percocet] 5-325 mg tablet 1 tab PO Q8H PRN (Reason: pain) 3 Days Qty: 7 0RF penicillin V potassium 500 mg tablet 500 mg PO BID 10 Days Qty: 20 0RF Stand Alone Forms: Work/School Release
[2022-12-30 01:06] LABS: IDNOW Serial# 08D9AD1C; Strep A Nucleic Acid Positive (Negative)
== END 2022-12-30 02:14 | disposition home or self-care (01) ==
PROVIDERS: Emergency Provider Emergency Medicine; PCP Internal Medicine
DX: J02.0 Streptococcal pharyngitis (principal); K04.7 Periapical abscess without sinus; Z20.822 Contact with and (suspected) exposure to COVID-19; Z20.828 Contact with and (suspected) exposure to other viral communicable diseases; Z79.899 Other long term (current) drug therapy
CPT/HCPCS: 87502; 87635; 87651; 99283; 99284

== ENCOUNTER 2023-02-13 09:48 | Outpatient (REF) | payer MEDICAID, SELFPAY ==
[2023-02-13 11:03] LABS: MANUAL DIFF FLAG NO
[2023-02-13 11:14] LABS: Basophils Absolute Auto 0.1 X10*3/uL (0.0-0.2); Basophils Percent Auto 0.6 % (0-2); Eosinophils Absolute Auto 0.2 X10*3/uL (0.0-0.4); Eosinophils Percent Auto 2.5 % (0-4); Hematocrit 40.1 % (37.0-47.0); Hemoglobin 12.2 g/dl (12.0-16.0); Imm Gran Abs Auto 0.06 X10*3/uL (0.00-0.03); Imm Gran Pct Auto 0.7 % (0.0-0.4); Mean Corpuscular HGB Conc 30.4 g/dl (31.0-35.0); Mean Corpuscular Hemoglobin 26.1 pg (27.0-33.0); Mean Corpuscular Volume 85.9 fL (80.0-98.0); Mean Platelet Volume 13.1 fL (9.4-12.3); Monocytes Absolute Auto 0.4 X10*3/uL (0.1-1.2); Monocytes Percent Auto 4.7 % (2-11); Neutrophils Absolute Auto 5.4 x10*3/uL (2.0-8.3); Neutrophils Percent Auto 66.5 % (45-73); Platelet Count 192 X10*3/uL (160-400); Red Blood Count 4.67 X10*6/uL (4.20-5.50); White Blood Count 8.1 X10*3/uL (4.8-10.8)
[2023-02-13 11:44] LABS: Anion Gap 9 (12-20); Blood Urea Nitrogen 9 mg/dL (9-16); Calcium 9.8 mg/dL (8.4-10.2); Carbon Dioxide 26 mmol/L (22-29); Chloride 107 mmol/L (96-108); Estimated Glomerular Filt Rate > 60; Glucose Random 85 mg/dL (60-115); Potassium 4.1 mmol/L (3.3-5.1); Sodium 138 mmol/L (135-145)
[2023-02-13 11:53] LABS: Cholesterol 186 mg/dL (<200); HDL Cholesterol 46 mg/dL (>40); LDL Cholesterol Calculated 118 mg/dL (<100); Triglycerides 111 mg/dL (<150)
[2023-02-13 11:56] LABS: Erythrocyte Sedimentation Rate 12 MM/HR (0-20)
[2023-02-13 11:57] LABS: HBS Num1 5.37 mIU/mL (0-7.99); HBsAGNum1 0.33 S/CO (0.00-0.99); Hepatitis A Antibody IgM 0.21 Index (0-0.79); Hepatitis B Core Antibody Nonreactive (Nonreactive); Hepatitis B Surface Antigen Negative (Negative); ~HepC Num1 0.09 S/CO (0.00-0.79); ~Hepatitis A Antibody IgM Nonreactive (Nonreactive); ~Hepatitis B Surface Antibody NONREACTIVE (Nonreactive); ~Hepatitis C Antibody Nonreactive (Nonreactive)
[2023-02-13 12:08] LABS: Ferritin 14 ng/mL (10-122); Vitamin D 25-OH Total 13.6 ng/mL (>30)
[2023-02-13 12:32] LABS: Reflex LDLD? No
[2023-02-13 14:02] LABS: Free T4 (Free Thyroxine) 1.08 ng/dL (0.71-1.85); TSH reflex Free T4 0.36 uIU/mL (0.32-4.0); Thyroid Stimulating Hormone 0.36 uIU/mL (0.32-4.0)
[2023-02-14 11:24] LABS: Triiodothyronine T3 Free 3.2 pg/mL (2.3-4.2); Triiodothyronine T3 Total 146 ng/dL (76-181)
[2023-02-14 12:58] LABS: Rubella IgG Antibody 2.77 Index
== END 2023-02-13 09:49 | disposition home or self-care (01) ==
LOC: HO.HHCL 09:48
PROVIDERS: Visit Provider Internal Medicine
DX: Z00.00 Encounter for general adult medical examination without abnormal findings (principal); E05.90 Thyrotoxicosis, unspecified without thyrotoxic crisis or storm; D64.89 Other specified anemias
CPT/HCPCS: 36415; 80048; 80061; 82306; 82728; 84436; 84439; 84443; 84480; 84481; 85025; 85652; 86704; 86706; 86709; 86735; 86762; 86765; 86803; 87340

== ENCOUNTER 2023-02-25 13:46 | Emergency (ER) | payer MEDICAID, SELFPAY ==
--- NOTE | ~2023-02-25 | CT_ITS ---
EXAMINATION: CT ABDOMEN AND PELVIS WITH CONTRAST CLINICAL INFORMATION: Right lower quadrant pain. COMPARISON: None available. TECHNIQUE: Multidetector volumetric images were obtained from the superior aspect of the liver through the pubic symphysis following administration 85 mL of Omnipaque 350 intravenous contrast. Sagittal and coronal reformatted images were obtained on the technologist's workstation. Oral contrast: No This CT examination was performed using dose optimization techniques as appropriate, variously including the following: *Automated exposure control *Adjustment of mA and/or kV according to patient size (this includes techniques or standardized protocols for targeted exams where dose is matched to indication/reason for exam; i.e. extremities or head) *Use of iterative reconstruction technique DLP: 927 mGy-cm FINDINGS: LUNG BASES: The visualized lung bases are unremarkable. LIVER, GALLBLADDER, AND BILIARY TREE: The liver is normal in size, shape, and attenuation. No focal hepatic lesion or biliary ductal dilatation is present. The gallbladder is unremarkable with no evidence of radiopaque gallstones, gallbladder wall thickening, or obvious pericholecystic inflammatory changes. PANCREAS: Unremarkable. SPLEEN: The spleen is mildly enlarged measuring up to 15 cm. ADRENAL GLANDS: Unremarkable. KIDNEYS AND URETERS: The kidneys are normal in size, shape, and attenuation. There is mild right hydronephrosis and proximal right hydroureter to the level of a 3.5 mm proximal right ureteric calculus. There is no left-sided hydronephrosis or hydroureter BLADDER: Unremarkable. GASTROINTESTINAL TRACT: The small and large bowel are unremarkable. The appendix is unremarkable. ABDOMINAL WALL: No significant hernia is appreciated. LYMPH NODES: Normal. VASCULAR: Unremarkable. PELVIC VISCERA: Unremarkable. OSSEOUS STRUCTURES: Unremarkable. CT/CT abdomen pelvis w IV con IMPRESSION: 3.5 mm proximal right ureteric calculus with mild proximal right hydroureter and hydronephrosis. Fleischner guidelines were followed.
[2023-02-25 13:51] VITALS: BP 140/84; PULSE 72; O2SAT 98
--- NOTE | 2023-02-25 13:52 | ED_ITS ---
HPI - General Adult General Chief complaint: Abdominal Pain Stated complaint: RLQ PAIN X 1.5 HOURS Time Seen by Provider: 02/25/23 19:58 Source: patient Mode of arrival: ambulatory Limitations: no limitations History of Present Illness HPI narrative: Patient is a 16-year-old female presents emergency department for evaluation of right lower quadrant pain. Sudden onset 1.5 hours prior to arrival. She was sitting down relaxing when the pain started suddenly. First began in the right flank/back and radiated into the right lower quadrant of the abdomen. Had associated nausea but no vomiting. At this time pain has somewhat improved but is not completely resolved. She denies any history of similar pain in the past. She denies fevers, chills, constipation, diarrhea, hematochezia, melena, dysuria, urinary frequency/urgency/hesitancy, received a [place] a, possibility of . Denies history of similar pain in the past. Related Data Previous Rx's Medication Instructions Recorded ibuprofen 800 mg tablet 800 mg PO Q8H PRN pain #30 tabs 04/16/20 oxycodone-acetaminophen 5 mg-325 1 tab PO Q8H PRN pain 3 days #7 04/16/20 mg tablet (Percocet) tabs penicillin V potassium 500 mg 500 mg PO BID 10 days #20 tabs 04/16/20 tablet amoxicillin 875 mg-potassium 1 tab PO BID #20 tabs 12/30/22 clavulanate 125 mg tablet ciprofloxacin HCl 500 mg tablet 500 mg PO BID #13 tabs 02/25/23 naproxen 500 mg tablet 500 mg PO BID #20 tabs 02/25/23 oxycodone 5 mg tablet 5 mg PO Q6H PRN pain #10 tabs 02/25/23 tamsulosin 0.4 mg capsule 0.4 mg PO BEDTIME #14 caps 02/25/23 Allergies Allergy/AdvReac Type Severity Reaction Status Date / Time No Known Allergies Allergy Verified 04/11/20 23:39 [No Known Allergies*] Review of Systems 2 Review of Systems: Yes all other systems are reviewed and are negative [facility] Past Medical History Attestation statement: The following information was validated with the patient. Source: old records reviewed Medical History Preeclampsia Hypothyroid HPV in female Ovarian cyst Social History Social History Alcohol intake: current Alcohol intake frequency: holidays/special occasions only Smoked in Last 30 Days: No Use of substances other than those prescribed or required for medical reasons: Yes Substance Use Type: Marijuana Advance Directives: No Physical Exam ED Vital Signs: Vital Signs - 24 hr 02/25/23 14:13 02/25/23 19:11 Temperature 97.1 F Pulse Rate 68 68 Respiratory Rate 18 18 Blood Pressure 125/72 125/77 Pulse Oximetry 100 100 Oxygen Delivery Method Room Air Room Air BMI result Body Mass Index 35.9 Appearance: Alert.?Oriented to person, place and time. No acute distress.?Normal affect. Eyes: Pupils equal, round and reactive to light.? ENT: Pharynx normal.?? Neck: Normal inspection.? Neck supple.?? CVS: Heart sounds normal. Normal heart rate and rhythm.? Pulses normal.?? Respiratory: No respiratory distress.? Lung sounds clear to auscultation bilaterally?? Abdomen: Soft with right lower quadrant tenderness to palpation. No rigidity. No guarding. No distention. Normoactive bowel sounds. Right CVA tenderness. Skin: Skin warm and dry.? Normal skin color.? Extremities: No lower extremity edema.? Neuro: Moves all extremities spontaneously. Sensation intact bilaterally. Ambulates with normal steady gait. Course Course Course Narrative: This is an RME: Additional HPI, ROS, PE not included below will be deferred to primary provider. [age] old female presents of right lower quadrant pain that started around noon been nature and ever since w/ a/c nausea. Hx of tubal in may. Comes in by ambulance. Plan labs, urine 1413 Reports period just started in the waiting room Reevaluation(s) Reevaluation #1: Urinalysis indicates microscopic hematuria and pyuria, with presence of squamous epithelial cells concerning for UTI versus urogenital contamination. CT revealing a 3.5 mm proximal ureteral calculi with mild hydroureter and hydronephrosis, likely the etiology of pain. We will treat to cover infection, note patient follow-up with Urology, tamsulosin, naproxen, and reviewed worrisome signs and symptoms that would warrant re-evaluation in the emergency department. All questions answered. Stable for discharge. Time: 22:30 Medications Administered Generic Name Dose Route Start Last Admin Trade Name Freq PRN Reason Stop Dose Admin Sodium Chloride 1,000 mls @ 999 mls/hr 02/25/23 20:30 02/25/23 20:34 Ns IV 02/25/23 21:30 999 mls/hr .Q1H1M ANDRES Administration Medical Decision Making Medical Decision Making [facility] Narrative: Patient is a 27-year-old female presents emergency department for evaluation of sudden-onset right flank/right lower quadrant pain as per HPI. She has notable tenderness upon palpation upon the examination. Overall support uncomfortable but is afebrile without tachycardia tachypnea or hypoxia. Will obtain CBC to evaluate for leukocytosis/ anemia, CMP and lipase to evaluate for abnormal electrolytes /abnormal renal function/ abnormal hepatic/biliary function, CT of the abdomen and pelvis and Urinalysis. Patient received 1 L normal saline IV fluid, declines pain medication at this time. Differential Diagnosis Differential Diagnoses: The differential diagnosis associated with the presentation includes (Urinary tract infection, pyelonephritis, hydronephrosis, ureteral calculi, appendicitis, colitis, muscular strain) Admission/Observation Consideration of admission/observation: Escalation of care including admission/observation considered (See course narrative for further detail) Lab Data [facility] Lab Attestation statement: I reviewed the patient's lab results. CBC is without leukocytosis or anemia. CMP is overall unremarkable. Urinalysis with microscopic hematuria, nitrates negative but pyuria present; 4+ urine bacteria, presence of squamous epithelial cells concerning for UTI versus urogenital contamination 02/25/23 14:23 02/25/23 14:23 Labs: Lab Results 02/25/23 02/25/23 Range/Units 14:23 19:19 WBC 8.4 (4.8-10.8) X10*3/uL RBC 4.56 (4.20-5.50) X10*6/uL Hgb 12.1 (12.0-16.0) g/dl Hct 39.3 (37.0-47.0) % MCV 86.2 (80.0-98.0) fL MCH 26.5 L (27.0-33.0) pg MCHC 30.8 L (31.0-35.0) g/dl RDW 14.9 (11.0-16.0) % Plt Count 190 (160-400) X10*3/uL MPV 12.9 H (9.4-12.3) fL Immature Gran % (Auto) 0.2 (0.0-0.4) % Neut % (Auto) 66.7 (45-73) % Lymph % (Auto) 24.9 (20-40) % Power % (Auto) 5.8 (2-11) % Eos % (Auto) 1.9 (0-4) % Baso % (Auto) 0.5 (0-2) % Lymph # (Auto) 2.1 (1.2-4.9) X10*3/uL Power # (Auto) 0.5 (0.1-1.2) X10*3/uL Eos # (Auto) 0.2 (0.0-0.4) X10*3/uL Baso # (Auto) 0.0 (0.0-0.2) X10*3/uL Abs Immat Gran (auto) 0.02 (0.00-0.03) X10*3/uL Absolute Neuts (auto) 5.6 (2.0-8.3) x10*3/uL Absolute Nucleated RBC 0.000 (0.0-0.012) X10*3/uL Nucleated RBC % (auto) 0.0 (0.0-0.2) /100WBC Sodium 139 (135-145) mmol/L Potassium 3.9 (3.3-5.1) mmol/L Chloride 109 H (96-108) mmol/L Carbon Dioxide 25 (22-29) mmol/L Anion Gap 9 L (12-20) BUN 11 (9-16) mg/dL Creatinine 0.73 (0.5-1.4) mg/dL Estim Creat Clear Calc 171.4 Estimated GFR > 60 Random Glucose 92 (60-115) mg/dL Calcium 9.7 (8.4-10.2) mg/dL Magnesium 2.0 (1.6-2.6) mg/dL Total Bilirubin 0.9 (0.0-1.0) mg/dL AST 16 (5-31) U/L ALT 16 (0-31) U/L Alkaline Phosphatase 63 (39-117) U/L Total Protein 7.5 (6.5-8.0) g/dL Albumin 4.1 (3.5-5.0) g/dL Urine Color Yellow Urine Appearance Cloudy Urine pH 6.0 (5.0-9.0) Ur Specific [place] 1.020 (1.005-1.025) Urine Protein Trace (Neg-Trace) mg/dL Urine Glucose (UA) Negative (Negative) mg/dL Urine Ketones Negative (Negative) mg/dL Urine Blood Large (3+) H (Negative) Urine Nitrite Negative (Negative) Ur Leukocyte Esterase Large (3+) H (Negative) Urine Test NEGATIVE (NEGATIVE) Independent Interpretation I performed an independent interpretation of an: CT Scan Radiology Impression Discussion of test interpretation with radiology: I have reviewed the radiologist's reading. Radiologist Impression: CT/CT abdomen pelvis w IV con IMPRESSION: 3.5 mm proximal right ureteric calculus with mild proximal right hydroureter and hydronephrosis. External Record Review External record reviewed: Outpatient record and Other ([employer] BLASTING prior to prescribing oxycodone, no conflicts) Prescription Management I considered prescription management with: Pain Medication and Antibiotic Discharge Plan Discharge Clinical Impression: Calculus, ureteral, Urinary tract infection Patient Disposition: Home, Self-Care Instructions: Urinary Tract Infection in Women (ED), Ureteral Stones (ED) Prescriptions: New tamsulosin 0.4 mg capsule 0.4 mg PO BEDTIME Qty: 14 0RF naproxen 500 mg tablet 500 mg PO BID Qty: 20 0RF ciprofloxacin HCl 500 mg tablet 500 mg PO BID Qty: 13 0RF oxycodone 5 mg tablet 5 mg PO Q6H PRN (Reason: pain) Qty: 10 0RF Rx Instructions: Partial Fill upon patient request. No Action ibuprofen 800 mg tablet 800 mg PO Q8H PRN (Reason: pain) Qty: 30 0RF oxycodone-acetaminophen [Percocet] 5-325 mg tablet 1 tab PO Q8H PRN (Reason: pain) 3 Days Qty: 7 0RF penicillin V potassium 500 mg tablet 500 mg PO BID 10 Days Qty: 20 0RF amoxicillin-pot clavulanate 875-125 mg tablet 1 tab PO BID Qty: 20 0RF Referrals: Funmi Read MD [Physician] - Iva Howard MD [Primary Care Provider] -
[2023-02-25 14:13] VITALS: BP 125/72; PULSE 68; RESP 18; TEMP 36.2; O2SAT 100; BMI 35.9
[2023-02-25 14:27] LABS: MANUAL DIFF FLAG NO
[2023-02-25 14:29] LABS: Basophils Percent Auto 0.5 % (0-2); Eosinophils Absolute Auto 0.2 X10*3/uL (0.0-0.4); Eosinophils Percent Auto 1.9 % (0-4); Hematocrit 39.3 % (37.0-47.0); Hemoglobin 12.1 g/dl (12.0-16.0); Imm Gran Abs Auto 0.02 X10*3/uL (0.00-0.03); Imm Gran Pct Auto 0.2 % (0.0-0.4); Lymphocytes Absolute Auto 2.1 X10*3/uL (1.2-4.9); Lymphocytes Percent Auto 24.9 % (20-40); Mean Corpuscular HGB Conc 30.8 g/dl (31.0-35.0); Mean Corpuscular Hemoglobin 26.5 pg (27.0-33.0); Mean Corpuscular Volume 86.2 fL (80.0-98.0); Mean Platelet Volume 12.9 fL (9.4-12.3); Monocytes Absolute Auto 0.5 X10*3/uL (0.1-1.2); Monocytes Percent Auto 5.8 % (2-11); Neutrophils Absolute Auto 5.6 x10*3/uL (2.0-8.3); Neutrophils Percent Auto 66.7 % (45-73); Platelet Count 190 X10*3/uL (160-400); Red Blood Count 4.56 X10*6/uL (4.20-5.50); Red Cell Distribution Width 14.9 % (11.0-16.0); White Blood Count 8.4 X10*3/uL (4.8-10.8)
[2023-02-25 14:43] LABS: Alanine Aminotransferase 16 U/L (0-31); Albumin Level 4.1 g/dL (3.5-5.0); Alkaline Phosphatase 63 U/L (39-117); Anion Gap 9 (12-20); Aspartate Amino Transferase 16 U/L (5-31); Bilirubin Total 0.9 mg/dL (0.0-1.0); Blood Urea Nitrogen 11 mg/dL (9-16); Calcium 9.7 mg/dL (8.4-10.2); Carbon Dioxide 25 mmol/L (22-29); Chloride 109 mmol/L (96-108); Creatinine Clr Calc Pharmacy 171.4; Estimated Glomerular Filt Rate > 60; Glucose Random 92 mg/dL (60-115); Potassium 3.9 mmol/L (3.3-5.1); Sodium 139 mmol/L (135-145); Total Protein 7.5 g/dL (6.5-8.0)
[2023-02-25 19:11] VITALS: BP 125/77; PULSE 68; RESP 18; O2SAT 100
--- NOTE | 2023-02-25 19:17 | PC.NURSE ---
pt aox4, ambulatory. pain in right flank/low back started sharply and suddenly earlier today. since then pain has diminished but is still a 4/10 and a 6/10 with movement. pt denies injury. urine sample obtained and sent to lab
[2023-02-25 19:31] LABS: Appearance Urine Cloudy; Color Urine Yellow; Glucose Urine UA Negative (Negative); Leukocyte Esterase Urine Large (3+) (Negative); Nitrite Urine Negative (Negative); UMIC TRIGGER UACC YES; Urine Blood Large (3+) (Negative); Urine Ketones Negative (Negative); Urine Protein Trace mg/dL (Neg-Trace)
[2023-02-25 19:32] LABS: UPreg QC Valid YES; Urine Pregnancy NEGATIVE (NEGATIVE)
[2023-02-25] MEDS: 0.9 % Sodium Chloride 1,000 ML 999 ML IV (20:34)
[2023-02-25] MEDS: iohexoL 350 MG/ML 100 ML INFUS..BTL 85 ML IV (20:54)
[2023-02-25 21:00] LABS: Bacteria Urine 4+ (None Seen); RBC Urine >20 /HPF (0-2); UACC Culture Trigger YES; WBC Urine >50 /HPF (0-5)
[2023-02-25 22:00] VITALS: BP 117/59; PULSE 62; RESP 14; O2SAT 98
[2023-02-25] MEDS: levoFLOXacin 750 MG TABLET PO (23:08)
[2023-02-25] MEDS: Tamsulosin HCL 0.4 MG CAPSULE PO (23:08)
[2023-02-25] MEDS: Acetaminophen 325 MG TABLET 650 MG PO (23:19)
== END 2023-02-25 23:23 | disposition home or self-care (01) ==
PROVIDERS: Physician Assistant; Emergency Provider Emergency Medicine; PCP Internal Medicine
DX: N13.2 Hydronephrosis with renal and ureteral calculous obstruction (principal); N39.0 Urinary tract infection, site not specified
CPT/HCPCS: 36415; 74177; 80053; 81001; 81025; 83735; 85025; 87086; 96360; 99284; Q9967

== ENCOUNTER 2023-02-28 10:04 | Emergency (ER) | payer MEDICAID, SELFPAY ==
--- NOTE | ~2023-02-28 | XR_ITS ---
EXAMINATION: XR CHEST CLINICAL INFORMATION: Pain. COMPARISON: Chest radiograph 12/03/2022. TECHNIQUE: 2 views of the chest were obtained. FINDINGS: Normal appearance of the cardiomediastinal silhouette. Mild streaky opacities in the left lower lobe, favoring to represent subsegmental atelectasis. No focal infiltrates. No pleural effusion or pneumothorax. No pulmonary edema. No acute osseous findings. Visualized upper abdomen is within normal limits. XR/XR chest 2V IMPRESSION: Mild subsegmental atelectasis in the left lower lobe. Otherwise, clear lungs.
--- NOTE | ~2023-02-28 | US_ITS ---
EXAMINATION: US ABDOMEN LIMITED CLINICAL INFORMATION: Right upper quadrant pain. COMPARISON: Previous CT of the abdomen and pelvis most recent 02/25/2023 and abdominal ultrasound May 2017 TECHNIQUE: Real-time imaging of the right upper quadrant abdominal viscera. FINDINGS: PANCREAS: Normal. LIVER: Liver echotexture is slightly increased. Liver is slightly enlarged. Liver is normal in contour.. No focal hepatic lesion. There is no intrahepatic biliary duct dilatation seen. GALLBLADDER: Normal. The gallbladder is physiologically distended without evidence of stones, sludge, polyps, wall thickening or pericholecystic fluid. COMMON BILE DUCT: Normal in caliber measuring 0.3 cm in diameter. RIGHT KIDNEY: Mild right hydronephrosis. No renal calculi or focal parenchymal lesions. The kidney measures 13 cm in maximum dimension. FREE FLUID: None. US/US abdomen limited IMPRESSION: Slightly enlarged echogenic liver. Differential would include fatty infiltration and hepatocellular disease. Mild right hydronephrosis.
[2023-02-28 10:39] VITALS: BP 135/78; PULSE 80; RESP 16; TEMP 36.8; O2SAT 99; BMI 36.4
[2023-02-28 11:12] LABS: MANUAL DIFF FLAG NO
[2023-02-28 11:15] LABS: Basophils Percent Auto 0.4 % (0-2); Eosinophils Percent Auto 0.4 % (0-4); Hematocrit 41.3 % (37.0-47.0); Hemoglobin 12.6 g/dl (12.0-16.0); Imm Gran Abs Auto 0.04 X10*3/uL (0.00-0.03); Imm Gran Pct Auto 0.4 % (0.0-0.4); Lymphocytes Absolute Auto 1.4 X10*3/uL (1.2-4.9); Lymphocytes Percent Auto 13.3 % (20-40); Mean Corpuscular HGB Conc 30.5 g/dl (31.0-35.0); Mean Corpuscular Hemoglobin 25.9 pg (27.0-33.0); Mean Corpuscular Volume 84.8 fL (80.0-98.0); Mean Platelet Volume 12.6 fL (9.4-12.3); Monocytes Absolute Auto 0.5 X10*3/uL (0.1-1.2); Monocytes Percent Auto 4.6 % (2-11); Neutrophils Absolute Auto 8.4 x10*3/uL (2.0-8.3); Neutrophils Percent Auto 80.9 % (45-73); Platelet Count 191 X10*3/uL (160-400); Red Blood Count 4.87 X10*6/uL (4.20-5.50); Red Cell Distribution Width 14.7 % (11.0-16.0); White Blood Count 10.3 X10*3/uL (4.8-10.8)
[2023-02-28 11:28] LABS: Alanine Aminotransferase 17 U/L (0-31); Albumin Level 4.4 g/dL (3.5-5.0); Alkaline Phosphatase 68 U/L (39-117); Anion Gap 13 (12-20); Aspartate Amino Transferase 17 U/L (5-31); Bilirubin Direct 0.4 mg/dL (0.0-0.5); Bilirubin Total 1.2 mg/dL (0.0-1.0); Blood Urea Nitrogen 15 mg/dL (9-16); Carbon Dioxide 23 mmol/L (22-29); Chloride 109 mmol/L (96-108); Estimated Glomerular Filt Rate > 60; Glucose Random 98 mg/dL (60-115); Potassium 4.5 mmol/L (3.3-5.1); Sodium 140 mmol/L (135-145); Total Protein 8.1 g/dL (6.5-8.0)
[2023-02-28] MEDS: Ondansetron ODT 4 MG TAB.RAPDIS TRANSLINGU ×2 (14:07→16:44)
--- NOTE | 2023-02-28 16:34 | ED.GENADULT ---
HPI - General Adult General Chief complaint: Abdominal Pain Stated complaint: Nausea Time Seen by Provider: 02/28/23 16:07 Source: patient, RN notes reviewed and old records reviewed Mode of arrival: ambulatory Limitations: no limitations History of Present Illness HPI narrative: 27-year-old female presents for evaluation of right flank pain. Patient was seen here 3 days ago and diagnosed with a 3.5 mm proximal ureteral stone. Patient reports she passed the stone the following day and she could see in her urine She states that she felt well the rest of that day. Yesterday began with right flank pain again well as nausea. Her pain is worse with movement or ?taking a deep breath. ? Denies any fevers, chills pain, cough The patient has been taking ciprofloxacin, oxycodone, tamsulosin She feels of the oxycodone made her symptoms worse including the nausea and vomiting. No other complaints or concerns at this time Related Data Previous Rx's Medication Instructions Recorded ibuprofen 800 mg tablet 800 mg PO Q8H PRN pain #30 tabs 04/16/20 oxycodone-acetaminophen 5 mg-325 1 tab PO Q8H PRN pain 3 days #7 04/16/20 mg tablet (Percocet) tabs penicillin V potassium 500 mg 500 mg PO BID 10 days #20 tabs 04/16/20 tablet amoxicillin 875 mg-potassium 1 tab PO BID #20 tabs 12/30/22 clavulanate 125 mg tablet ciprofloxacin HCl 500 mg tablet 500 mg PO BID #13 tabs 02/25/23 naproxen 500 mg tablet 500 mg PO BID #20 tabs 02/25/23 oxycodone 5 mg tablet 5 mg PO Q6H PRN pain #10 tabs 02/25/23 tamsulosin 0.4 mg capsule 0.4 mg PO BEDTIME #14 caps 02/25/23 ondansetron 4 mg disintegrating 4 mg PO Q8H PRN nausea and 02/28/23 tablet vomiting #20 tabs Allergies Allergy/AdvReac Type Severity Reaction Status Date / Time No Known Allergies Allergy Verified 02/28/23 10:39 [No Known Allergies*] Review of Systems Constitutional: Constitutional: Denies chills and Denies fever(s) ENT: Denies sore throat Cardiovascular: Cardiovascular: Denies chest pain and Denies dyspnea Respiratory: Respiratory: Denies cough, Reports pain on inspiration and Denies dyspnea Gastrointestinal: Gastrointestinal: Denies abdominal pain, Reports nausea and Reports vomiting Genitourinary: Genitourinary: Denies difficulty voiding Musculoskeletal: Musculoskeletal: Reports back pain Integumentary/Breasts: Skin/Breast: Denies rash PMFSH Past Medical History Medical History Preeclampsia Hypothyroid HPV in female Ovarian cyst Social History Social History Alcohol intake: current Alcohol intake frequency: holidays/special occasions only Substance Use Type: Marijuana Advance Directives: No Advance Directives Information Provided: No Physical Exam ED Vital Signs: Vital Signs - 24 hr 02/28/23 10:39 Temperature 98.2 F Pulse Rate 80 Respiratory Rate 16 Blood Pressure 135/78 Pulse Oximetry 99 Oxygen Delivery Method Room Air BMI result Body Mass Index 36.4 Const General: healthy appearing, comfortable, no acute distress, alert and awake Nutritional Appearance: well nourished Orientation/consciousness: patient oriented x3 HENMT Head: Yes normocephalic and Yes atraumatic Eyes Eyelids: Yes eyelids normal Conjunctivae: conjunctivae normal Sclerae: sclerae normal Corneas: corneas normal Pupils: Equal, round and reactive pupils present EOM: EOMs intact bilaterally Neck Neck: Yes full ROM Resp Effort & Inspection: normal respiratory effort, able to speak in complete sentences and not labored GI Inspection: No distended Palpation (GI): Soft to palpation, not firm, nontender, no guarding and not rigid Auscultation: normoactive bowel sounds Back/Spine/Pelvis Other: Tenderness to palpation of the right thoracic paraspinour region, no vertebral tenderness. Skin General skin exam: elasticity normal Neuro General: patient oriented x3 Cranial nerves: Yes Equal, round and reactive pupils present and Yes Bilaterally intact EOM present Cognition (Neuro): normal cognition Extrem Other: Moving all extremities well without any obvious deformities Course Reevaluation(s) Reevaluation #1: Patient's workup largely unremarkable. Patient still reports some discomfort to the area was able to move around better. Her ultrasound shows mild right hydronephrosis which is consistent with the recent CT scan a few days ago. Gallbladder ultrasound is unremarkable. Patient has a slightly enlarged liver. All this was discussed with the patient. Patient is stable for discharge at this time. Her pain may be related to renal colic versus musculoskeletal origin. She will be discharged with Zofran for nausea and vomiting. Patient was encouraged to finish her ciprofloxacin for UTI Time: 18:57 Medications Administered Discontinued Medications Generic Name Dose Route Start Last Admin Trade Name Stna PRN Reason Stop Dose Admin Ketorolac Tromethamine 30 mg 02/28/23 16:31 02/28/23 16:44 Ketorolac Tromethamine 30 Mg/Ml Vial IM 02/28/23 16:32 30 mg ONCE ONE Administration Ondansetron HCl 4 mg 02/28/23 13:57 02/28/23 14:07 Ondansetron Odt 4 Mg Tab.Rapdis TRANSLINGU 02/28/23 13:58 4 mg ONCE ONE Administration Ondansetron HCl 4 mg 02/28/23 16:31 02/28/23 16:44 Ondansetron Odt 4 Mg Tab.Rapdis TRANSLINGU 02/28/23 16:32 4 mg ONCE ONE Administration Medical Decision Making Medical Decision Making [facility] Narrative: 27-year-old female presents for evaluation of right flank pain. On exam her pain appears musculoskeletal in origin. It is quite tender to palpation. She has no abdominal pain or tenderness. On review of her labs, she has no leukocytosis, her renal function is baseline. Her total bilirubin is just barely above normal at 1.2. Given the recent stone will get an ultrasound upper quadrant including the gallbladder and the kidney. Will treat the patient's pain with Toradol and Zofran. Will also order chest x-ray to rule out right lower lobe pathology causing the right flank pain. Differential Diagnosis Differential Diagnoses: The differential diagnosis associated with the presentation includes Flank pain Muscle strain Pyelonephritis Obstructive uropathy Pneumonia Biliary colic Lab Data [facility] Lab Attestation statement: I reviewed the patient's lab results. No leukocytosis, no anemia. Normal platelet count. Chloride is just above normal at 109. Renal function was normal limits. T bili is just barely above normal at 1.2. No other significant chemistry abnormalities 02/28/23 11:08 02/28/23 11:08 Labs: Lab Results 02/28/23 Range/Units 11:08 WBC 10.3 (4.8-10.8) X10*3/uL RBC 4.87 (4.20-5.50) X10*6/uL Hgb 12.6 (12.0-16.0) g/dl Hct 41.3 (37.0-47.0) % MCV 84.8 (80.0-98.0) fL MCH 25.9 L (27.0-33.0) pg MCHC 30.5 L (31.0-35.0) g/dl RDW 14.7 (11.0-16.0) % Plt Count 191 (160-400) X10*3/uL MPV 12.6 H (9.4-12.3) fL Immature Gran % (Auto) 0.4 (0.0-0.4) % Neut % (Auto) 80.9 H (45-73) % Lymph % (Auto) 13.3 L (20-40) % [place] % (Auto) 4.6 (2-11) % Eos % (Auto) 0.4 (0-4) % Baso % (Auto) 0.4 (0-2) % Lymph # (Auto) 1.4 (1.2-4.9) X10*3/uL [place] # (Auto) 0.5 (0.1-1.2) X10*3/uL Eos # (Auto) 0.0 (0.0-0.4) X10*3/uL Baso # (Auto) 0.0 (0.0-0.2) X10*3/uL Abs Immat Gran (auto) 0.04 H (0.00-0.03) X10*3/uL Absolute Neuts (auto) 8.4 H (2.0-8.3) x10*3/uL Absolute Nucleated RBC 0.000 (0.0-0.012) X10*3/uL Nucleated RBC % (auto) 0.0 (0.0-0.2) /100WBC Sodium 140 (135-145) mmol/L Potassium 4.5 (3.3-5.1) mmol/L Chloride 109 H (96-108) mmol/L Carbon Dioxide 23 (22-29) mmol/L Anion Gap 13 (12-20) BUN 15 (9-16) mg/dL Creatinine 0.84 (0.5-1.4) mg/dL Estim Creat Clear Calc 150.0 Estimated GFR > 60 Random Glucose 98 (60-115) mg/dL Calcium 10.0 (8.4-10.2) mg/dL Total Bilirubin 1.2 H (0.0-1.0) mg/dL Direct Bilirubin 0.4 (0.0-0.5) mg/dL AST 17 (5-31) U/L ALT 17 (0-31) U/L Alkaline Phosphatase 68 (39-117) U/L Total Protein 8.1 H (6.5-8.0) g/dL Albumin 4.4 (3.5-5.0) g/dL Beta HCG, Quant < 2 mIU/mL Discharge Plan Discharge Clinical Impression: Acute right flank pain Patient Disposition: Home, Self-Care Instructions: Flank Pain (ED) Additional Instructions: Your blood work was all reassuring today. Her ultrasound shows a slightly enlarged liver, mild swelling in the kidney likely related to the recent kidney stone. Your gallbladder did not have any concerning abnormalities Follow-up with your primary doctor for the fatty liver You may stop taking the oxycodone and tamsulosin Use ibuprofen for pain Continue taking the ciprofloxacin until you finish it Use Zofran for nausea or vomiting Prescriptions: New ondansetron 4 mg tablet,disintegrating 4 mg PO Q8H PRN (Reason: nausea and vomiting) Qty: 20 0RF No Action ibuprofen 800 mg tablet 800 mg PO Q8H PRN (Reason: pain) Qty: 30 0RF oxycodone-acetaminophen [Percocet] 5-325 mg tablet 1 tab PO Q8H PRN (Reason: pain) 3 Days Qty: 7 0RF penicillin V potassium 500 mg tablet 500 mg PO BID 10 Days Qty: 20 0RF amoxicillin-pot clavulanate 875-125 mg tablet 1 tab PO BID Qty: 20 0RF tamsulosin 0.4 mg capsule 0.4 mg PO BEDTIME Qty: 14 0RF naproxen 500 mg tablet 500 mg PO BID Qty: 20 0RF ciprofloxacin HCl 500 mg tablet 500 mg PO BID Qty: 13 0RF oxycodone 5 mg tablet 5 mg PO Q6H PRN (Reason: pain) Qty: 10 0RF Rx Instructions: Partial Fill upon patient request. Stand Alone Forms: Work/School Release
[2023-02-28 16:44] LABS: HCG Quantitative < 2 mIU/mL
[2023-02-28] MEDS: Ketorolac Tromethamine 30 MG/ML VIAL IM (16:44)
[2023-02-28 19:14] VITALS: BP 141/78; PULSE 74; RESP 17; TEMP 36.7; O2SAT 98
== END 2023-02-28 19:18 | disposition home or self-care (01) ==
PROVIDERS: Physician Assistant; Emergency Provider Emergency Medicine; PCP Internal Medicine
DX: N13.30 Unspecified hydronephrosis (principal); R11.2 Nausea with vomiting, unspecified; R07.89 Other chest pain; Z79.899 Other long term (current) drug therapy
CPT/HCPCS: 36415; 71046; 76705; 80048; 80076; 84702; 85025; 96372; 99284; J1885

== ENCOUNTER 2023-03-17 12:42 | Outpatient (REF) | payer MEDICAID, SELFPAY ==
--- NOTE | ~2023-03-17 | US_ITS ---
EXAMINATION: US THYROID CLINICAL INFORMATION: Hyperthyroidism. COMPARISON: None available. TECHNIQUE: Linear transducer grayscale and color Doppler examination with attention to the region of the thyroid. FINDINGS: SIZE: Measurements of the thyroid lobes and nodules are given in sagittal, anteroposterior and transverse dimensions respectively. Right Thyroid Lobe: 5.3 x 1.6 x 1.8 cm, volume 8.0 mL. Parenchyma: The gland echotexture is homogeneous. Thyroid vascularity is normal. Left Thyroid Lobe: 5.9 x 1.6 x 1.6 cm, volume 7.9 mL. Parenchyma: The gland echotexture is homogeneous. Thyroid vascularity is normal. Isthmus: 0.4 cm in maximum AP dimension. No focal thyroid nodule is seen. NODES: No lymphadenopathy is seen in the tissue surrounding the thyroid gland. US/US thyroid IMPRESSION: No suspicious thyroid nodules. ACR TI-RADS RECOMMENDATION REFERENCE: Ultrasound-guided fine-needle aspiration, followup ultrasound, no further follow up. * TR1 (0 point) and TR2 (2 points): No FNA or follow up. * TR3 (3 points): FNA if more than or equal to 2.5 cm in maximum dimension, followup ultrasound in 1, 3 and 5 years if 1.5 to 2.4 cm in maximum dimension. * TR4 (4-6 points): FNA if more than or equal to 1.5 cm in maximum dimension, followup ultrasound in 1, 2, 3 and 5 years if 1 to 1.4 cm in maximum dimension. * TR5 (more than or equal to 7 points): FNA if more than or equal to 1 cm in maximum dimension, followup ultrasound every year for 5 years if 0.5 to 0.9 cm in maximum dimension. * TR3, TR4 or TR5 nodules that are below the size threshold for followup receive no follow up.
== END 2023-03-17 12:43 | disposition home or self-care (01) ==
LOC: HO.US 12:42
PROVIDERS: PCP Internal Medicine; Visit Provider Internal Medicine
DX: E05.90 Thyrotoxicosis, unspecified without thyrotoxic crisis or storm (principal)
CPT/HCPCS: 76536

== ENCOUNTER 2023-03-18 09:46 | Outpatient (REF) | payer MEDICAID, SELFPAY ==
[2023-03-18 11:59] LABS: HIV AB/AG Nonreactive (Nonreactive); HIV Num 1 0.04 S/CO (0.00-0.99)
[2023-03-19 21:52] LABS: C. trachomatis RNA TMA DETECTED (NOT DETECTED); N. gonorrhoeae RNA TMA NOT DETECTED (NOT DETECTED)
[2023-03-20 11:58] LABS: RPR Rapid Plasma Reagin NON-REACTIVE (NON-REACTIVE)
== END 2023-03-18 09:47 | disposition home or self-care (01) ==
LOC: HO.HHCL 09:46
PROVIDERS: Visit Provider Internal Medicine
DX: Z70.8 Other sex counseling (principal); Z20.2 Contact with and (suspected) exposure to infections with a predominantly sexual mode of transmission
CPT/HCPCS: 36415; 81513; 86592; 87389; 87491; 87591

== ENCOUNTER 2023-10-03 18:14 | Emergency (ER) | payer MEDICAID, SELFPAY ==
--- NOTE | ~2023-10-03 | CT_ITS ---
EXAMINATION: CT head/brain wo IV con CLINICAL INFORMATION: Reason for Exam New onset headache COMPARISON: None. TECHNIQUE: Contiguous axial imaging was performed from the skull base to vertex without intravenous contrast. Sagittal and coronal reformatted images were obtained. This CT examination was performed using dose optimization techniques as appropriate, variously including the following: * Automated exposure control * Adjustment of mA and/or kV according to patient size (this includes techniques or standardized protocols for targeted exams where dose is matched to indication/reason for exam; i.e. extremities or head) Use of iterative reconstruction technique DLP: 612.42 mGy-cm FINDINGS: No acute osseous or soft tissue abnormality. The mastoid air cells and visualized portions of the paranasal sinuses are well aerated. There is no evidence of acute intracranial hemorrhage or territorial infarction. No abnormal mass effect or midline shift is seen. Doss to white matter differentiation is well preserved. No extra-axial fluid collections are identified. No hydrocephalus. No significant volume loss. There is no abnormal attenuation within the brain parenchyma. CT/CT head/brain wo IV con IMPRESSION: No acute intracranial abnormality including hemorrhage, mass effect, hydrocephalus, or acute territorial edematous infarction.
[2023-10-03 18:16] VITALS: BP 154/97; PULSE 75; RESP 17; TEMP 36.7; O2SAT 100; BMI 35.3
--- NOTE | 2023-10-03 18:17 | ED.GENADULT ---
HPI - General Adult General Chief complaint: Headache Stated complaint: Headache/sharp pain on mid back Time Seen by Provider: 10/03/23 22:26 Source: patient Mode of arrival: ambulatory Limitations: no limitations History of Present Illness ED Provider: devin GILLIAM narrative: Patient complaining of headache since yesterday with nausea no fever no chills no upper respiratory symptoms no head injury headache is diffuse no rash no sore throat Related Data Previous Rx's ?Medication ?Instructions ?Recorded ibuprofen 800 mg tablet 800 mg PO Q8H PRN pain #30 tabs 04/16/20 oxycodone-acetaminophen 5 mg-325 1 tab PO Q8H PRN pain 3 days #7 04/16/20 mg tablet (Percocet) tabs penicillin V potassium 500 mg 500 mg PO BID 10 days #20 tabs 04/16/20 tablet amoxicillin 875 mg-potassium 1 tab PO BID #20 tabs 12/30/22 clavulanate 125 mg tablet ciprofloxacin HCl 500 mg tablet 500 mg PO BID #13 tabs 02/25/23 naproxen 500 mg tablet 500 mg PO BID #20 tabs 02/25/23 oxycodone 5 mg tablet 5 mg PO Q6H PRN pain #10 tabs 02/25/23 tamsulosin 0.4 mg capsule 0.4 mg PO BEDTIME #14 caps 02/25/23 ondansetron 4 mg disintegrating 4 mg PO Q8H PRN nausea and 02/28/23 tablet vomiting #20 tabs hfafsuywhq-fqlxxvqzgkejw-evfvmzjb 1 tab PO Q6H PRN haeadace #20 tabs 10/04/23 50 mg-325 mg-40 mg tablet Allergies Allergy/AdvReac Type Severity Reaction Status Date / Time No Known Allergies Allergy Verified 10/03/23 18:19 [No Known Allergies*] Review of Systems Review of Systems: Yes all other systems are reviewed and are negative PMFSH Past Medical History Medical History Preeclampsia Hypothyroid HPV in female Ovarian cyst Social History Social History Alcohol intake: current Alcohol intake frequency: does not drink Smoked in Last 30 Days: No Use of substances other than those prescribed or required for medical reasons: No Substance Use Type: Marijuana Advance Directives: No Advance Directives Information Provided: No Do you have a plan to hurt others: No Plan Physical Exam ED Vital Signs: Vital Signs - 24 hr 10/03/23 18:16 10/03/23 21:03 10/04/23 01:15 Temperature 98.1 F 98.9 F 97.9 F Pulse Rate 75 75 67 Respiratory Rate 17 16 16 Blood Pressure 154/97 H 119/65 132/70 Pulse Oximetry 100 100 98 Oxygen Delivery Method Room Air Room Air Room Air 10/04/23 02:27 Temperature 97.9 F Pulse Rate 67 Respiratory Rate 16 Blood Pressure 132/70 Pulse Oximetry 98 Oxygen Delivery Method Room Air BMI result Body Mass Index 35.3 Appearance: Alert. Oriented X3. No acute distress. Eyes: PERRLA, No Nystagmus ENT: Pharynx normal. Oral Mucosa moist Neck: Normal inspection. Neck supple. CVS: Normal heart rate and rhythm. Pulses normal. Respiratory: No respiratory distress. Equal air entry bilateral, no wheezing/rales/rhonchi Abdomen: Soft and nontender. Bowel sounds are present, no mass palpable, no CVA tenderness Skin: Skin warm and dry. Normal skin color. Normal skin turgor. Extremities: No lower extremity edema. No calf tenderness Neuro: Oriented X 3. No motor deficit. No sensory deficit.No cerebellar signs , cranial nerves II-XII intact Course Course Course Narrative: This is an RME done by JOSE Carroll: Additional HPI, ROS, PE not included below will be deferred to primary provider. 27 year old female presenting with severe throbbing headache and neck pain since yesterday. She has been taking Tylenol and ibuprofen with no relief of pain. Appearance: Alert.? Oriented X3.? No acute cardiopulmonary distress distress.? Head: Normocephalic, atraumatic, no step-offs or deformities ENT: Pharynx normal.??External ears normal, TMs normal bilaterally and EAC's normal. No pain with manipulation of external ears bilaterally. No mastoid tenderness. Neck: Normal inspection.? Neck supple.? CVS: Pulses normal.? Respiratory: No respiratory distress.? Abdomen: Soft and nontender.? Skin: ? Normal skin color. Extremities: 5/5 strength to bilateral upper and lower extremities Back: No midline tenderness, no C-spine tenderness, full range of motion, No CVA tenderness bilaterally Neuro: Oriented X 3.? No motor deficit.? No sensory deficit. Medications Administered Discontinued Medications Generic Name Dose Route Start Last Admin Trade Name Freq PRN Reason Stop Dose Admin Acetaminophen/Butalbital/Caffeine 1 tab 10/03/23 22:42 10/03/23 23:13 Butalb/Acetamin/Caff 50/325/40 Tablet PO 10/03/23 22:43 1 tab ONCE ONE Administration Ketorolac Tromethamine 60 mg 10/04/23 00:38 10/04/23 01:06 Ketorolac Tromethamine 60 Mg/2 Ml Vial IM 10/04/23 00:39 60 mg ONCE ONE Administration Medical Decision Making Medical Decision Making MDM Narrative: Patient clinically with complex migraine headache/tension headache will give her Fioricet Lab Data Labs: Lab Results 10/03/23 Range/Units 18:34 Influenza Type A (PCR) NEGATIVE (Negative) Influenza Type B (PCR) NEGATIVE (Negative) RSV RNA Qual (PCR) NEGATIVE (Negative) SARS-CoV-2 RNA (RT-PCR) NEGATIVE (Negative) Discharge Plan Discharge Clinical Impression: Headache Patient Disposition: Home, Self-Care Instructions: General Headache (ED) Additional Instructions: Likely you have complex migraine headache Take Fioricet 1 tablet every 6 hours as needed Prescriptions: New rpjprrapvi-lgzkweoyzkyyt-ekwu 50-325-40 mg tablet 1 tab PO Q6H PRN (Reason: haeadace) Qty: 20 0RF No Action ibuprofen 800 mg tablet 800 mg PO Q8H PRN (Reason: pain) Qty: 30 0RF oxycodone-acetaminophen [Percocet] 5-325 mg tablet 1 tab PO Q8H PRN (Reason: pain) 3 Days Qty: 7 0RF penicillin V potassium 500 mg tablet 500 mg PO BID 10 Days Qty: 20 0RF ondansetron 4 mg tablet,disintegrating 4 mg PO Q8H PRN (Reason: nausea and vomiting) Qty: 20 0RF amoxicillin-pot clavulanate 875-125 mg tablet 1 tab PO BID Qty: 20 0RF tamsulosin 0.4 mg capsule 0.4 mg PO BEDTIME Qty: 14 0RF naproxen 500 mg tablet 500 mg PO BID Qty: 20 0RF ciprofloxacin HCl 500 mg tablet 500 mg PO BID Qty: 13 0RF oxycodone 5 mg tablet 5 mg PO Q6H PRN (Reason: pain) Qty: 10 0RF Rx Instructions: Partial Fill upon patient request. Interventions: ED Discharge Assessment Last Done: 10/04/23 02:27 Discharge Date/Time: 10/04/23 02:05 Print Language: Khmer
[2023-10-03 19:26] LABS: Influenza A PCR NEGATIVE (Negative); Influenza B PCR NEGATIVE (Negative); Resp Syncy Virus RNA Qual PCR NEGATIVE (Negative); SARS COV2 PCR INHOUSE NEGATIVE (Negative)
[2023-10-03 21:03] VITALS: BP 119/65; PULSE 75; RESP 16; TEMP 37.2; O2SAT 100
--- NOTE | 2023-10-03 22:43 | ED.HA ---
HPI - Headache General Chief Complaint: Headache Stated Complaint: Headache/sharp pain on mid back Time Seen by Provider: 10/03/23 22:26 Source: patient Mode of arrival: ambulatory Limitations: no limitations History of Present Illness ED Provider: devin GILLIAM Narrative: Patient complaining of headache for last 2 days with no history of diagnosed with a migraine does feel nauseated no head injury no relation of the headache with portion no fever no chills Related Data Previous Rx's ?Medication ?Instructions ?Recorded ibuprofen 800 mg tablet 800 mg PO Q8H PRN pain #30 tabs 04/16/20 oxycodone-acetaminophen 5 mg-325 1 tab PO Q8H PRN pain 3 days #7 04/16/20 mg tablet (Percocet) tabs penicillin V potassium 500 mg 500 mg PO BID 10 days #20 tabs 04/16/20 tablet amoxicillin 875 mg-potassium 1 tab PO BID #20 tabs 12/30/22 clavulanate 125 mg tablet ciprofloxacin HCl 500 mg tablet 500 mg PO BID #13 tabs 02/25/23 naproxen 500 mg tablet 500 mg PO BID #20 tabs 02/25/23 oxycodone 5 mg tablet 5 mg PO Q6H PRN pain #10 tabs 02/25/23 tamsulosin 0.4 mg capsule 0.4 mg PO BEDTIME #14 caps 02/25/23 ondansetron 4 mg disintegrating 4 mg PO Q8H PRN nausea and 02/28/23 tablet vomiting #20 tabs okbmjhwvqb-vfqietvjmipvk-afovlaft 1 tab PO Q6H PRN haeadace #20 tabs 10/04/23 50 mg-325 mg-40 mg tablet Allergies Allergy/AdvReac Type Severity Reaction Status Date / Time No Known Allergies Allergy Verified 10/03/23 18:19 [No Known Allergies*] Review of Systems Review of Systems: Yes all other systems are reviewed and are negative PMFSH Past Medical History Medical History Preeclampsia Hypothyroid HPV in female Ovarian cyst Social History Social History Alcohol intake: current Alcohol intake frequency: does not drink Smoked in Last 30 Days: No Use of substances other than those prescribed or required for medical reasons: No Substance Use Type: Marijuana Advance Directives: No Advance Directives Information Provided: No Do you have a plan to hurt others: No Plan Physical Exam Vital Signs: Vital Signs: Last Vital Signs Temp 97.9 F 10/04/23 02:27 Pulse 67 10/04/23 02:27 Resp 16 10/04/23 02:27 BP 132/70 10/04/23 02:27 Pulse Ox 98 10/04/23 02:27 O2 Del Method Room Air 10/04/23 02:27 BMI result Body Mass Index 35.3 Appearance: Alert. Oriented X3. No acute distress. Eyes: PERRLA, No Nystagmus ENT: Pharynx normal. Oral Mucosa moist temporal artery nontender sinuses nontender Neck: Normal inspection. Neck supple. CVS: Normal heart rate and rhythm. Pulses normal. Respiratory: No respiratory distress. Equal air entry bilateral, no wheezing/rales/rhonchi Abdomen: Soft and nontender. Bowel sounds are present, no mass palpable, no CVA tenderness Skin: Skin warm and dry. Normal skin color. Normal skin turgor. Extremities: No lower extremity edema. No calf tenderness Neuro: Oriented X 3. No motor deficit. No sensory deficit.No cerebellar signs , cranial nerves II-XII intact Medications Administered Discontinued Medications Generic Name Dose Route Start Last Admin Trade Name Freq PRN Reason Stop Dose Admin Acetaminophen/Butalbital/Caffeine 1 tab 10/03/23 22:42 10/03/23 23:13 Butalb/Acetamin/Caff 50/325/40 Tablet PO 10/03/23 22:43 1 tab ONCE ONE Administration Ketorolac Tromethamine 60 mg 10/04/23 00:38 10/04/23 01:06 Ketorolac Tromethamine 60 Mg/2 Ml Vial IM 10/04/23 00:39 60 mg ONCE ONE Administration Medical Decision Making Differential Diagnosis Differential Diagnoses: The differential diagnosis associated with the presentation includes Migraine/tension/pseudotumor cerebri Lab Data [facility] Lab Attestation statement: I reviewed the patient's lab results. Labs: Lab Results 10/03/23 Range/Units 18:34 Influenza Type A (PCR) NEGATIVE (Negative) Influenza Type B (PCR) NEGATIVE (Negative) RSV RNA Qual (PCR) NEGATIVE (Negative) SARS-CoV-2 RNA (RT-PCR) NEGATIVE (Negative) Independent Interpretation I performed an independent interpretation of an: CT Scan Radiology Impression Discussion of test interpretation with radiology: I have reviewed the radiologist's reading. Discharge Plan Discharge Clinical Impression: Headache Patient Disposition: Home, Self-Care Instructions: General Headache (ED) Additional Instructions: Likely you have complex migraine headache Take Fioricet 1 tablet every 6 hours as needed Prescriptions: New faynhodifj-oqqriidkhyaxa-vtes 50-325-40 mg tablet 1 tab PO Q6H PRN (Reason: haeadace) Qty: 20 0RF No Action ibuprofen 800 mg tablet 800 mg PO Q8H PRN (Reason: pain) Qty: 30 0RF oxycodone-acetaminophen [Percocet] 5-325 mg tablet 1 tab PO Q8H PRN (Reason: pain) 3 Days Qty: 7 0RF penicillin V potassium 500 mg tablet 500 mg PO BID 10 Days Qty: 20 0RF ondansetron 4 mg tablet,disintegrating 4 mg PO Q8H PRN (Reason: nausea and vomiting) Qty: 20 0RF amoxicillin-pot clavulanate 875-125 mg tablet 1 tab PO BID Qty: 20 0RF tamsulosin 0.4 mg capsule 0.4 mg PO BEDTIME Qty: 14 0RF naproxen 500 mg tablet 500 mg PO BID Qty: 20 0RF ciprofloxacin HCl 500 mg tablet 500 mg PO BID Qty: 13 0RF oxycodone 5 mg tablet 5 mg PO Q6H PRN (Reason: pain) Qty: 10 0RF Rx Instructions: Partial Fill upon patient request. Interventions: ED Discharge Assessment Last Done: 10/04/23 02:27 Discharge Date/Time: 10/04/23 02:05 Print Language: French
[2023-10-03] MEDS: Butalb/Acetamin/Caff 50/325/40 TABLET 1 TAB PO (23:13)
[2023-10-04] MEDS: Ketorolac Tromethamine 60 MG/2 ML VIAL IM (01:06)
[2023-10-04 01:15] VITALS: BP 132/70; PULSE 67; RESP 16; TEMP 36.6; O2SAT 98
[2023-10-04 02:27] VITALS: BP 132/70; PULSE 67; RESP 16; TEMP 36.6; O2SAT 98
== END 2023-10-04 02:05 | disposition home or self-care (01) ==
PROVIDERS: Physician Assistant; Emergency Provider Internal Medicine; PCP Internal Medicine
DX: R51.9 Headache, unspecified (principal); Z03.818 Encounter for observation for suspected exposure to other biological agents ruled out
CPT/HCPCS: 0241U; 70450; 96372; 99284; J1885

== ENCOUNTER 2024-04-20 22:16 | Emergency (ER) | payer MEDICAID, SELFPAY ==
--- NOTE | ~2024-04-20 | CT_ITS ---
CLINICAL HISTORY: LLQ pain, CVAT, hematuria CT Abdomen and Pelvis WO Contrast COMPARISON: CT/REG/SR - CT ABDOMEN PELVIS W IV CON - 02/25/23 20:44 EST FINDINGS: Diffusely hypodense liver consistent with hepatic steatosis. Hepatomegaly. Splenomegaly. Normal kidneys. No urolithiasis or hydronephrosis. Normal adrenal glands. Normal pancreas. No visible cholelithiasis. No biliary dilation. No evidence of bowel obstruction or colitis. Normal appendix. Unremarkable bladder. Unremarkable uterus and ovaries. No ascites. No pneumoperitoneum. No lymphadenopathy. No acute fracture. No abdominal aortic aneurysm. IMPRESSION: No acute findings. Nonemergent/incidental findings above. This document has been electronically signed by: Ion Merlos MD on 04/21/2024 03:26:13
--- NOTE | ~2024-04-20 | XR_ITS ---
CLINICAL HISTORY: pain, wheezing Chest X-ray, 2 Views COMPARISON: CR/MT/SR - XR CHEST 2V - 02/28/23 17:07 EST FINDINGS: No consolidation. No pleural effusion. No pneumothorax. No cardiomegaly. No acute fracture. IMPRESSION: No acute findings. This document has been electronically signed by: Ion Merlos MD on 04/20/2024 23:20:25
[2024-04-20 22:34] VITALS: BP 165/70; PULSE 86; O2SAT 99
--- NOTE | 2024-04-20 22:35 | ED.GENADULT ---
HPI - General Adult General Stated complaint: n/v headache with slight vaginal bleeding Time Seen by Provider: 04/20/24 22:34 Source: patient and EMS Mode of arrival: EMS Limitations: no limitations History of Present Illness ED Provider: Karma Rajput NP HPI narrative: Patient is a 28-year-old female presents emergency department via EMS for evaluation Related Data Previous Rx's ?Medication ?Instructions ?Recorded ibuprofen 800 mg tablet 800 mg PO Q8H PRN pain #30 tabs 04/16/20 oxycodone-acetaminophen 5 mg-325 1 tab PO Q8H PRN pain 3 days #7 04/16/20 mg tablet (Percocet) tabs penicillin V potassium 500 mg 500 mg PO BID 10 days #20 tabs 04/16/20 tablet amoxicillin 875 mg-potassium 1 tab PO BID #20 tabs 12/30/22 clavulanate 125 mg tablet ciprofloxacin HCl 500 mg tablet 500 mg PO BID #13 tabs 02/25/23 naproxen 500 mg tablet 500 mg PO BID #20 tabs 02/25/23 oxycodone 5 mg tablet 5 mg PO Q6H PRN pain #10 tabs 02/25/23 tamsulosin 0.4 mg capsule 0.4 mg PO BEDTIME #14 caps 02/25/23 ondansetron 4 mg disintegrating 4 mg PO Q8H PRN nausea and 02/28/23 tablet vomiting #20 tabs wiyzcsmdwy-yxszqqdfyxneg-ikkvpvyy 1 tab PO Q6H PRN haeadace #20 tabs 10/04/23 50 mg-325 mg-40 mg tablet Allergies Allergy/AdvReac Type Severity Reaction Status Date / Time No Known Allergies Allergy Verified 10/03/23 18:19 [No Known Allergies*] [facility] Past Medical History Medical History Preeclampsia Hypothyroid HPV in female Ovarian cyst Social History Social History Alcohol intake: current Alcohol intake frequency: does not drink Substance Use Type: Marijuana Discharge Plan Discharge Prescriptions: No Action ibuprofen 800 mg tablet 800 mg PO Q8H PRN (Reason: pain) Qty: 30 0RF oxycodone-acetaminophen [Percocet] 5-325 mg tablet 1 tab PO Q8H PRN (Reason: pain) 3 Days Qty: 7 0RF penicillin V potassium 500 mg tablet 500 mg PO BID 10 Days Qty: 20 0RF ondansetron 4 mg tablet,disintegrating 4 mg PO Q8H PRN (Reason: nausea and vomiting) Qty: 20 0RF kdywcdfmnc-ptgbywkmnjypq-jdrp 50-325-40 mg tablet 1 tab PO Q6H PRN (Reason: haeadace) Qty: 20 0RF amoxicillin-pot clavulanate 875-125 mg tablet 1 tab PO BID Qty: 20 0RF tamsulosin 0.4 mg capsule 0.4 mg PO BEDTIME Qty: 14 0RF naproxen 500 mg tablet 500 mg PO BID Qty: 20 0RF ciprofloxacin HCl 500 mg tablet 500 mg PO BID Qty: 13 0RF oxycodone 5 mg tablet 5 mg PO Q6H PRN (Reason: pain) Qty: 10 0RF Rx Instructions: Partial Fill upon patient request. Print Language: Wolof
--- NOTE | 2024-04-20 22:52 | ED_ITS ---
HPI - Allergic Reaction General Chief complaint: Allergic Reaction Stated complaint: n/v headache with slight vaginal bleeding Time Seen by Provider: 04/20/24 22:34 Source: patient and EMS Mode of arrival: EMS Limitations: no limitations History of Present Illness ED Provider: ryan hobbs np HPI narrative: Patient is a 28-year-old female presents emergency department via EMS for evaluation. She reports at 16:00 this evening she consumed a small bites of homeless. She has had home is in the past but she does admit that this was a different brand than what she has previously eaten. Soon thereafter she states she began experiencing a sensation to her throat as if needles were poking into a, difficulty swallowing, burning sensation to her tongue is slight swelling. She reports at approximately 17:30 she took liquid Benadryl a total of 20 mL, she is not sure the mg equivalent of this. She began experiencing head pressure, facial itching. Then followed with burning epigastric pain radiating towards the left lower side of her abdomen. She went to the bathroom to urinate and she noticed a very small amount of blood on the toilet tissue, denies concern for , and citing her most recent normal menstruation who have started on 04/04/2024. She then was experiencing facial flushing. She waited for her to be home with the children and she contacted EMS for evaluation Related Data Previous Rx's ?Medication ?Instructions ?Recorded ibuprofen 800 mg tablet 800 mg PO Q8H PRN pain #30 tabs 04/16/20 oxycodone-acetaminophen 5 mg-325 1 tab PO Q8H PRN pain 3 days #7 04/16/20 mg tablet (Percocet) tabs penicillin V potassium 500 mg 500 mg PO BID 10 days #20 tabs 04/16/20 tablet amoxicillin 875 mg-potassium 1 tab PO BID #20 tabs 12/30/22 clavulanate 125 mg tablet ciprofloxacin HCl 500 mg tablet 500 mg PO BID #13 tabs 02/25/23 naproxen 500 mg tablet 500 mg PO BID #20 tabs 02/25/23 oxycodone 5 mg tablet 5 mg PO Q6H PRN pain #10 tabs 02/25/23 tamsulosin 0.4 mg capsule 0.4 mg PO BEDTIME #14 caps 02/25/23 ondansetron 4 mg disintegrating 4 mg PO Q8H PRN nausea and 02/28/23 tablet vomiting #20 tabs nfjtvzlrzc-pxgaszocrdbom-hxgbrtmb 1 tab PO Q6H PRN haeadace #20 tabs 10/04/23 50 mg-325 mg-40 mg tablet Allergies Allergy/AdvReac Type Severity Reaction Status Date / Time No Known Allergies Allergy Verified 04/20/24 23:00 [No Known Allergies*] Review of Systems 2 Review of Systems: Yes all other systems are reviewed and are negative [facility] Past Medical History Attestation statement: The following information was validated with the patient. Source: old records reviewed Medical History Preeclampsia Hypothyroid HPV in female Ovarian cyst Social History Social History Alcohol intake: current Alcohol intake frequency: does not drink Substance Use Type: Marijuana Advance Directives: No Advance Directives Information Provided: Yes Physical Exam ED Vital Signs: Vital Signs - 24 hr 04/20/24 22:58 04/21/24 00:00 04/21/24 01:48 Temperature 98.9 F 98.7 F 98.4 F Pulse Rate 89 86 80 Respiratory Rate 20 15 20 Blood Pressure 139/79 122/68 122/63 Pulse Oximetry 100 99 99 Oxygen Delivery Method Room Air Room Air Room Air BMI result Body Mass Index 36.9 Appearance: Alert.?Oriented to person, place and time. No acute distress.?Normal affect. Eyes: Pupils equal, round and reactive to light.? No periorbital swelling. ENT: Pharynx normal.? Uvula midline. No angioedema/ swelling of the tongue/face. ? Neck: Normal inspection.? Neck supple.??No adenopathy CVS: Heart sounds normal. Normal heart rate and rhythm.? Pulses normal.?? Respiratory: No respiratory distress.? Lung sounds clear to auscultation bilaterally?? Abdomen: Soft and non-tender. Normoactive bowel sounds. No CVAT. Skin: Skin warm and dry.? Normal skin color.? No rashes or lesions Extremities: No lower extremity edema.? No calf ttp? Neuro: Moves all extremities spontaneously. Sensation intact bilaterally. No focal neuro deficits. Ambulates with normal steady gait. Course Reevaluation(s) Reevaluation #1: CBC revealing a mild leukocytosis of 12.2 no anemia or thrombocytopenia. No electrolyte derangement. No OMAR. LFTs and lipase within normal range. HCG is negative. Urinalysis with 3+ blood, 1+ leukocyte esterase urine WBC and 3+ urine bacteria. There is additional squamous epithelial cells present. I do have concern for urinary tract infection she does not have direct genitourinary symptoms she has been experiencing abdominal pain this evening, though this may additionally be in part due to her possible allergic reaction. Provide with a course of antibiotic treatment pending culture. On review of viral serologies her influenza and RSV are negative she is however COVID-19 positive. This may additionally explained a multitude of her symptoms, however, it would seem far 2 coincidental that there be such an abrupt sudden onset symptoms just after eating such as she described in HPI. On re-evaluation she states that she overall feels much improved. However she still continues to have notable pain to the left lower abdomen. On evaluation at this time she does have left CVA tenderness. She states that 8 days ago she presented to an urgent Care she was having dysuria, she states that she was told that her urine did not appear infected she was given Pyridium which somewhat helped her symptoms. Reports that she later found out that her urine culture did not show any evidence of bacterial growth. She does admit to a history of nephrolithiasis states that this was many years ago. Obtaining CT of the abdomen and pelvis to evaluate for ureteral calculi, hydronephrosis. Time: 01:04 Reevaluation #2: Patient signed out to my attending Dr. Fragoso pending CT and radiologist impression. If there is not otherwise evidence of ureteral obstruction since of stone to suggest infected calculi, I anticipate that she may be cleared for discharge home given there is no progression of her presentation. Time: 01:49 Reevaluation #3: Dr. Fragoso' note: The patient was signed out to me by the nurse practitioner pending the results of a CT of the abdomen and pelvis to look for possible kidney stone. The CT of the abdomen and pelvis is negative. The patient has tested positive for COVID. She was sleeping at the time that I went to speak to her about her results. She awoke easily. She did not seem in acute distress. She seemed tired. I explained to her that she has COVID but we are not finding any other acutely dangerous process. She will be discharged to rest at home. Time: 04:14 Medications Administered Discontinued Medications Generic Name Dose Route Start Last Admin Trade Name Stan PRN Reason Stop Dose Admin Albuterol Sulfate 5 mg 04/20/24 22:53 04/20/24 23:07 Albuterol Sulfate (0.083%) 2.5 Mg/3 Ml Vial.Neb INHALE 04/20/24 22:54 5 mg ONCE ONE Administration Cefuroxime Axetil 250 mg 04/21/24 00:57 04/21/24 01:16 Cefuroxime Axetil 250 Mg Tablet PO 04/21/24 00:58 250 mg ONCE ONE Administration Diphenhydramine HCl 25 mg 04/20/24 22:53 04/20/24 23:06 Diphenhydramine Hcl 50 Mg/Ml Vial IVPUSH 04/20/24 22:54 25 mg ONCE ONE Administration Famotidine 20 mg 04/20/24 22:53 04/20/24 23:06 Famotidine/Pf 20 Mg/2 Ml Vial IVPUSH 04/20/24 22:54 20 mg ONCE ONE Administration Sodium Chloride 1,000 mls @ 999 mls/hr 04/20/24 23:00 04/21/24 00:22 Ns IV 04/21/24 00:00 Infused .Q1H1M ANDRES Infusion Methylprednisolone Sodium Succinate 125 mg 04/20/24 22:53 04/20/24 23:06 Methylprednisolone Sod Succ 125 Mg/2 Ml Vial IVPUSH 04/20/24 22:54 125 mg ONCE ONE Administration Medical Decision Making Medical Decision Making [facility] Narrative: Patient is a 28-year-old female presents emergency department for evaluation of systemic symptoms as per HPI concerning for seems to be likely an allergic reaction to the hummus that she consumed. Although I am not certain that the scant bleeding she was experiencing when she went to the bathroom is particularly associated with this, she has not had significant vaginal bleeding since this and denies any recent genitourinary symptoms. She received Zofran pre-hospital. Her most concerning symptom at this time is the headache that she is experiencing. Currently she is without hypoxia, tachypnea, no respiratory distress, breathing easily without further symptoms to her throat. No threat to airway. She does have expiratory wheezing diffusely throughout. No angioedema. No stridor. No anaphylaxis/anaphylactic shock at this time. No rashes or lesions. Plan to obtain serum labs to exclude alternative pathology or symptoms in addition to urinalysis/hCG exclude UTI/ and viral serologies. Patient to be medicated with 1 L normal saline IV fluid, Benadryl 25 mg IV, Solu-Medrol on his 25 mg IV, Pepcid 20 mg IV, in addition to albuterol 5 mg nebulizer solution. Differential Diagnosis Differential Diagnoses: The differential diagnosis associated with the presentation includes (See narrative above) Admission/Observation Consideration of admission/observation: Escalation of care including admission/observation considered Lab Data MDM Lab Attestation statement: I reviewed the patient's lab results. 04/21/24 00:21 04/21/24 00:21 Labs: Lab Results 04/21/24 Range/Units 00:21 WBC 12.2 H (4.8-10.8) X10*3/uL RBC 4.35 (4.20-5.50) X10*6/uL Hgb 12.0 (12.0-16.0) g/dl Hct 37.8 (37.0-47.0) % MCV 86.9 (80.0-98.0) fL MCH 27.6 (27.0-33.0) pg MCHC 31.7 (31.0-35.0) g/dl RDW 14.1 (11.0-16.0) % Plt Count 177 (160-400) X10*3/uL MPV 12.2 (9.4-12.3) fL Immature Gran % (Auto) 0.6 H (0.0-0.4) % Neut % (Auto) 78.4 H (45-73) % Lymph % (Auto) 16.0 L (20-40) % Hill % (Auto) 4.0 (2-11) % Eos % (Auto) 0.7 (0-4) % Baso % (Auto) 0.3 (0-2) % Lymph # (Auto) 2.0 (1.2-4.9) X10*3/uL Hill # (Auto) 0.5 (0.1-1.2) X10*3/uL Eos # (Auto) 0.1 (0.0-0.4) X10*3/uL Baso # (Auto) 0.0 (0.0-0.2) X10*3/uL Abs Immat Gran (auto) 0.07 H (0.00-0.03) X10*3/uL Absolute Neuts (auto) 9.5 H (2.0-8.3) x10*3/uL Absolute Nucleated RBC 0.000 (0.0-0.012) X10*3/uL Nucleated RBC % (auto) 0.0 (0.0-0.2) /100WBC PT 10.9 (10.9-12.4) SEC INR 0.9 (0.9-1.1) Sodium 138 (135-145) mmol/L Potassium 4.0 (3.3-5.1) mmol/L Chloride 107 (96-108) mmol/L Carbon Dioxide 23 (22-29) mmol/L Anion Gap 12 (12-20) BUN 14 (9-16) mg/dL Creatinine 0.77 (0.5-1.4) mg/dL Estim Creat Clear Calc 163.4 Estimated GFR > 60 Random Glucose 122 H (60-115) mg/dL Calcium 9.6 (8.4-10.2) mg/dL Magnesium 1.7 (1.6-2.6) mg/dL Total Bilirubin 0.9 (0.0-1.0) mg/dL AST 26 (5-31) U/L ALT 30 (0-31) U/L Alkaline Phosphatase 60 (39-117) U/L C-Reactive Protein 0.31 (< or = 0.50) mg/dL Total Protein 7.9 (6.5-8.0) g/dL Albumin 4.2 (3.5-5.0) g/dL Lipase 10 (8-78) U/L Beta HCG, Quant < 2 mIU/mL Urine Color Yellow Urine Appearance Cloudy Urine pH 6.0 (5.0-9.0) Ur Specific [place] 1.020 (1.005-1.025) Urine Protein Negative (Neg-Trace) mg/dL Urine Glucose (UA) Negative (Negative) mg/dL Urine Ketones Negative (Negative) mg/dL Urine Blood Large (3+) H (Negative) Urine Nitrite Negative (Negative) Ur Leukocyte Esterase Small (1+) H (Negative) Urine RBC 0-2 (0-2) /HPF Urine WBC 11-20 H (0-5) /HPF Ur Squamous Epith Cells 6-10 (0-2) /HPF Urine Bacteria 3+ (None Seen) Hyaline Casts 0-2 (0-2) /LPF Influenza Type A (PCR) NEGATIVE (Negative) Influenza Type B (PCR) NEGATIVE (Negative) RSV RNA Qual (PCR) NEGATIVE (Negative) SARS-CoV-2 RNA (RT-PCR) POSITIVE A (Negative) Independent Interpretation I performed an independent interpretation of an: EKG (EKG revealing a normal sinus rhythm with ventricular rate of 89, QTC 406, she had no ST elevation, ST depression, there is however noted artifact in the inferior leads primarily ) Radiology Impression Discussion of test interpretation with radiology: I have reviewed the radiologist's reading. Independent Historian Clinical information obtained from an independent historian. History obtained from or confirmed by: EMS External Record Review External record reviewed: Outpatient record Prescription Management I considered prescription management with: Antibiotic Discharge Plan Discharge Clinical Impression: Allergic reaction, COVID-19, Urinary tract infection Patient Disposition: Home, Self-Care Instructions: COVID-19 (Coronavirus Disease 2019) (ED) Additional Instructions: You were seen in the emergency department for evaluation of multiple symptoms. Line there was initial concern that you were perhaps having an allergic reaction given the sudden abrupt onset of your multitude of symptoms after having consumed the hummus earlier this evening. You were given medications to help with an allergic reaction in you noted significant improvement. It is recommended that you avoid homeless moving forward given your presentation today. You may follow-up with your primary care doctor and request testing/referral to an contract associate manager for further evaluation However you did continued to have pain in the left lower part of your abdomen as well as an your back, your urine test was concerning for microscopic blood as well as bacteria concerning for a possible urine tract infection. You did however mentioned that you were told from a urine specimen 1 week ago that the culture was negative and you did not vaughn. A CT scan was obtained to evaluate for a kidney stone given your notable pain. Additionally, you were found to be COVID-19 positive, this may mimic some of the symptoms that you were experiencing it was concerning for the allergic reaction but it would seem less likely that this would be such an abrupt sudden onset of all the symptoms at once. Prescriptions: No Action ibuprofen 800 mg tablet 800 mg PO Q8H PRN (Reason: pain) Qty: 30 0RF oxycodone-acetaminophen [Percocet] 5-325 mg tablet 1 tab PO Q8H PRN (Reason: pain) 3 Days Qty: 7 0RF penicillin V potassium 500 mg tablet 500 mg PO BID 10 Days Qty: 20 0RF ondansetron 4 mg tablet,disintegrating 4 mg PO Q8H PRN (Reason: nausea and vomiting) Qty: 20 0RF yscsrugadd-pwgucyaoohfaq-bwbl 50-325-40 mg tablet 1 tab PO Q6H PRN (Reason: haeadace) Qty: 20 0RF amoxicillin-pot clavulanate 875-125 mg tablet 1 tab PO BID Qty: 20 0RF tamsulosin 0.4 mg capsule 0.4 mg PO BEDTIME Qty: 14 0RF naproxen 500 mg tablet 500 mg PO BID Qty: 20 0RF ciprofloxacin HCl 500 mg tablet 500 mg PO BID Qty: 13 0RF oxycodone 5 mg tablet 5 mg PO Q6H PRN (Reason: pain) Qty: 10 0RF Rx Instructions: Partial Fill upon patient request. Referrals: Iva Howard MD [Physician] - (Covid) Print Language: Faroese
--- NOTE | 2024-04-20 22:53 | ECG_ITS ---
Test Reason : ABD PAIN Blood Pressure : */* mmHG Vent. Rate : 89 BPM Atrial Rate : 89 BPM P-R Int : 142 ms QRS Dur : 84 ms QT Int : 334 ms P-R-T Axes : 57 56 -14 degrees QTcB Int : 406 ms Normal sinus rhythm Nonspecific ST and T wave abnormality Abnormal ECG When compared with ECG of 03-Dec-2022 19:14, Nonspecific T wave abnormality no longer evident in Anterior leads Nonspecific T wave abnormality now evident in Lateral leads Referred By: Karma Rajput Electronically Signed By: DEO BRENNAN MD
[2024-04-20 22:58] VITALS: BP 139/79; PULSE 89; RESP 20; TEMP 37.2; O2SAT 100; BMI 36.9
[2024-04-20] MEDS: methylPREDNISolone Sod Succ 125 MG/2 ML VIAL IVPUSH (23:06)
[2024-04-20] MEDS: Famotidine/PF 20 MG/2 ML VIAL IVPUSH (23:06)
[2024-04-20] MEDS: diphenhydrAMINE HCL 50 MG/ML VIAL 25 MG IVPUSH (23:06)
[2024-04-20] MEDS: Albuterol Sulfate (0.083%) 2.5 MG/3 ML VIAL.NEB 5 MG INHALE (23:07)
[2024-04-20] MEDS: 0.9 % Sodium Chloride 1,000 ML 999 ML IV (23:21)
[2024-04-21] VITALS: BP 122/68; PULSE 86; RESP 15; TEMP 37.1; O2SAT 99
[2024-04-21 00:29] LABS: Appearance Urine Cloudy; Basophils Percent Auto 0.3 % (0-2); Color Urine Yellow; Eosinophils Absolute Auto 0.1 X10*3/uL (0.0-0.4); Eosinophils Percent Auto 0.7 % (0-4); Glucose Urine UA Negative (Negative); Hematocrit 37.8 % (37.0-47.0); Imm Gran Abs Auto 0.07 X10*3/uL (0.00-0.03); Imm Gran Pct Auto 0.6 % (0.0-0.4); Leukocyte Esterase Urine Small (1+) (Negative); MANUAL DIFF FLAG NO; Mean Corpuscular HGB Conc 31.7 g/dl (31.0-35.0); Mean Corpuscular Hemoglobin 27.6 pg (27.0-33.0); Mean Corpuscular Volume 86.9 fL (80.0-98.0); Mean Platelet Volume 12.2 fL (9.4-12.3); Monocytes Absolute Auto 0.5 X10*3/uL (0.1-1.2); Neutrophils Absolute Auto 9.5 x10*3/uL (2.0-8.3); Neutrophils Percent Auto 78.4 % (45-73); Nitrite Urine Negative (Negative); Platelet Count 177 X10*3/uL (160-400); Red Blood Count 4.35 X10*6/uL (4.20-5.50); Red Cell Distribution Width 14.1 % (11.0-16.0); UMIC TRIGGER UACC YES; Urine Blood Large (3+) (Negative); Urine Ketones Negative (Negative); Urine Protein Negative (Neg-Trace); White Blood Count 12.2 X10*3/uL (4.8-10.8)
[2024-04-21 00:34] LABS: INTERNATIONAL NORM RATIO 0.9 (0.9-1.1); Prothrombin Time 10.9 SEC (10.9-12.4)
[2024-04-21 00:38] LABS: Bacteria Urine 3+ (None Seen); Hyaline Casts Urine 0-2 /LPF (0-2); RBC Urine 0-2 /HPF (0-2); UACC Culture Trigger YES
[2024-04-21 00:50] LABS: Alanine Aminotransferase 30 U/L (0-31); Albumin Level 4.2 g/dL (3.5-5.0); Alkaline Phosphatase 60 U/L (39-117); Anion Gap 12 (12-20); Aspartate Amino Transferase 26 U/L (5-31); Bilirubin Total 0.9 mg/dL (0.0-1.0); Blood Urea Nitrogen 14 mg/dL (9-16); Calcium 9.6 mg/dL (8.4-10.2); Carbon Dioxide 23 mmol/L (22-29); Chloride 107 mmol/L (96-108); Creatinine Clr Calc Pharmacy 163.4; Estimated Glomerular Filt Rate > 60; Glucose Random 122 mg/dL (60-115); HCG Quantitative < 2 mIU/mL; Lipase 10 U/L (8-78); Magnesium 1.7 mg/dL (1.6-2.6); Sodium 138 mmol/L (135-145); Total Protein 7.9 g/dL (6.5-8.0)
[2024-04-21 01:06] LABS: Influenza A PCR NEGATIVE (Negative); Influenza B PCR NEGATIVE (Negative); Resp Syncy Virus RNA Qual PCR NEGATIVE (Negative); SARS COV2 PCR INHOUSE POSITIVE (Negative)
[2024-04-21] MEDS: cefuroxime axetiL 250 MG TABLET PO (01:16)
[2024-04-21 01:48] VITALS: BP 122/63; PULSE 80; RESP 20; TEMP 36.9; O2SAT 99
[2024-04-21 02:11] LABS: C Reactive Protein 0.31 mg/dL (< or = 0.50)
[2024-04-21 04:00] VITALS: BP 137/78; PULSE 80; RESP 20; TEMP 36.3; O2SAT 98
[2024-04-21 04:45] VITALS: BP 137/78; PULSE 80; RESP 20; TEMP 36.3; O2SAT 98
== END 2024-04-21 04:45 | disposition home or self-care (01) ==
PROVIDERS: Nurse Practitioner Family; Emergency Provider Emergency Medicine
DX: U07.1 COVID-19 (principal); N39.0 Urinary tract infection, site not specified; R11.2 Nausea with vomiting, unspecified; N93.9 Abnormal uterine and vaginal bleeding, unspecified; R10.2 Pelvic and perineal pain; R94.31 Abnormal electrocardiogram [ECG] [EKG]; R51.9 Headache, unspecified; R10.13 Epigastric pain; R31.9 Hematuria, unspecified; Z59.00 Homelessness unspecified
CPT/HCPCS: 0241U; 36415; 71046; 74176; 80053; 81001; 83690; 83735; 84702; 85025; 85610; 86140; 87086; 93005; 94640; 96361; 96374; 96375; 99284; 99285; J1200; J2919

== ENCOUNTER → 2024-04-20 22:53 | Outpatient (BNV) | payer MEDICAID, SELFPAY | PROVIDERS: Emergency Provider Emergency Medicine; Visit Provider Radiology Diagnostic Radiology | DX: R07.9 Chest pain, unspecified (principal); R06.2 Wheezing | CPT/HCPCS: 71046 ==

== ENCOUNTER → 2024-04-20 22:53 | Outpatient (BNV) | payer MEDICAID, SELFPAY | PROVIDERS: Emergency Provider Emergency Medicine; Visit Provider Internal Medicine Cardiovascular Disease | DX: R94.31 Abnormal electrocardiogram [ECG] [EKG] (principal) | CPT/HCPCS: 93010 ==

== ENCOUNTER → 2024-04-21 01:05 | Outpatient (BNV) | payer MEDICAID, SELFPAY | PROVIDERS: Emergency Provider Emergency Medicine; Visit Provider Radiology Diagnostic Radiology | DX: R10.32 Left lower quadrant pain (principal) | CPT/HCPCS: 74176 ==

== ENCOUNTER 2024-08-04 20:28 | Emergency (ER) | payer MEDICAID, SELFPAY ==
[2024-08-04 20:30] VITALS: BP 135/71; PULSE 84; RESP 18; TEMP 36.8; O2SAT 100; BMI 36.9
--- NOTE | 2024-08-04 20:30 | ED.ALLEREA ---
HPI - Allergic Reaction General Chief complaint: Allergic Reaction Stated complaint: allergic reaction Time Seen by Provider: 08/04/24 23:35 History of Present Illness ED Provider: Kirby Ocasio MD HPI narrative: [age] female who developed itching gums subjective tongue swelling and other allergic symptoms after eating Urdu food. Took Claritin upon arrival was ordered steroid and antihistamines. No history of anaphylaxis. Related Data Previous Rx's ?Medication ?Instructions ?Recorded ibuprofen 800 mg tablet 800 mg PO Q8H PRN pain #30 tabs 04/16/20 oxycodone-acetaminophen 5 mg-325 1 tab PO Q8H PRN pain 3 days #7 04/16/20 mg tablet (Percocet) tabs penicillin V potassium 500 mg 500 mg PO BID 10 days #20 tabs 04/16/20 tablet amoxicillin 875 mg-potassium 1 tab PO BID #20 tabs 12/30/22 clavulanate 125 mg tablet ciprofloxacin HCl 500 mg tablet 500 mg PO BID #13 tabs 02/25/23 naproxen 500 mg tablet 500 mg PO BID #20 tabs 02/25/23 oxycodone 5 mg tablet 5 mg PO Q6H PRN pain #10 tabs 02/25/23 tamsulosin 0.4 mg capsule 0.4 mg PO BEDTIME #14 caps 02/25/23 ondansetron 4 mg disintegrating 4 mg PO Q8H PRN nausea and 02/28/23 tablet vomiting #20 tabs sitndjacas-uurciwqyfqlpb-hfyqncig 1 tab PO Q6H PRN haeadace #20 tabs 10/04/23 50 mg-325 mg-40 mg tablet cefuroxime axetil 250 mg tablet 250 mg PO BID 7 days #13 tabs 04/21/24 epinephrine 0.3 mg/0.3 mL 0.3 mg (0.3 mL) IM Q10M PRN 08/04/24 injection, auto-injector (EpiPen) anaphylaxis #2 ea Allergies Allergy/AdvReac Type Severity Reaction Status Date / Time No Known Allergies Allergy Verified 08/04/24 20:33 [No Known Allergies*] PMFSH Past Medical History Medical History Preeclampsia Hypothyroid HPV in female Ovarian cyst Social History Social History Alcohol intake: current Alcohol intake frequency: does not drink Smoked in Last 30 Days: No Use of substances other than those prescribed or required for medical reasons: No Substance Use Type: Marijuana Advance Directives: No Advance Directives Information Provided: Yes Do you have a plan to hurt others: No Plan Patient : No Physical Exam ED Vital Signs: Vital Signs - 24 hr 08/04/24 20:30 08/04/24 22:00 08/05/24 00:10 Temperature 98.3 F 98.3 F 98.6 F Pulse Rate 84 75 76 Respiratory Rate 18 16 17 Blood Pressure 135/71 113/80 122/69 Pulse Oximetry 100 100 99 Oxygen Delivery Method Room Air Room Air Room Air 08/05/24 00:10 Temperature 98.6 F Pulse Rate 76 Respiratory Rate 17 Blood Pressure 122/69 Pulse Oximetry 99 Oxygen Delivery Method Room Air BMI result Body Mass Index 36.9 Const Other: EXAM: Gen: Alert, awake, well appearing, well hydrated. Head: Atraumatic Eyes: Anicteric, Normal conjunctiva. ENT: Moist mucosa, no pallor. Patent oropharynx no objective lingual, labial soft palate or other ENT swelling noted. No stridor. Supple neck. Normal phonation Skin: No rash or urticaria Neck: Supple. Respiratory: Breathing comfortably, No distress.Clear to auscultation bilaterally, symmetric chest expansion, No wheeze, rales, ronchi. Cardiovascular: Regular rate and rhythm. No murmurs or rub. Well perfused periphery, warm extremities. No edema. Abdominal: Soft, no objective distension. No palpable masses or obvious organomegaly. No focal tenderness, no guarding, no rebound tenderness or other peritoneal findings. : No flank tenderness. Neuro: Alert. Gross movement of all extremities intact. Vital signs: See flowsheet Course Course Course Narrative: This is a Rapid Medical Exam performed in triage by Bina Santoyo PA-C. Full HPI, ROS and PE to be performed by primary ED provider. 28 yo female with no significant PMHx presenting to the ED c/o allergic reaction after eating at a new restaurant 18:30 tonight. Reports gum itching, tongue swelling, mouth and lips feeling numb. She went to [facility] and took 10ml of claritin. She states she is still feeling symptoms and while en route to the ED she began to experience facial numbness, nasal congestion, and itchiness over body. States she suspects that it was tahini in hummus she ate. She is also experiencing lightheadedness. She denies chest pain, SOB, nausea, vomiting, PE: lungs CTA, retro oropharynx without edema or erythema, no rash or lesions, no swelling/ cyanosis of lips. Talking in complete sentences, airway patent. Non toxic appearing, in no acute distress. Plan: 50mg benadryl, 20mg pepcid, 125mg solumedrol Medications Administered Discontinued Medications Generic Name Dose Route Start Last Admin Trade Name Freq PRN Reason Stop Dose Admin Diphenhydramine HCl 50 mg 08/04/24 20:34 08/04/24 22:29 Diphenhydramine Hcl 50 Mg/Ml Vial IVPUSH 08/04/24 20:35 50 mg ONCE ONE Administration Famotidine 20 mg 08/04/24 20:34 08/04/24 22:29 Famotidine/Pf 20 Mg/2 Ml Vial IVPUSH 08/04/24 20:35 20 mg ONCE ONE Administration Methylprednisolone Sodium Succinate 125 mg 08/04/24 20:34 08/04/24 22:29 Methylprednisolone Sod Succ 125 Mg/2 Ml Vial IVPUSH 08/04/24 20:35 125 mg ONCE ONE Administration Medical Decision Making Medical Decision Making MDM Narrative: 28-year-old female with history of mucous membrane swelling and urticaria in the past no description of anaphylaxis. Today sounds like or pharyngeal symptoms only no GI or dermatologic manifestations described or identified by myself or previous provider triage you saw her. Patient is comfortable although slightly sleepy after antihistamine and steroid. At this point I think it is reasonable to give the patient EpiPen and strict return guidance. I told her to keep a 50 mg of Benadryl in her pocket at all times with the EpiPen Discharge Plan Discharge Clinical Impression: Allergic reaction Patient Disposition: Home, Self-Care Instructions: General Allergic Reaction (ED) Additional Instructions: DISCHARGE DIAGNOSES: allergic reaction, resolved. No anaphylaxis by criteria HISTORY OF PRESENTATION: allergic reaction to food unclear inciting ingredient EMERGENCY DEPARTMENT COURSE,TESTS, TREATMENTS: While in the ED today you received intravenous antihistamines and steroid medications with resolution of your symptoms DISCHARGE MEDICATIONS: epinephrine to keep on you at all times as needed only for severe allergic reaction as we described FOLLOW-UP: Call your primary or general physician soon as possible to discuss your symptoms, your ED visit and to discuss follow up plans call your primary doctor for follow up INSTRUCTIONS & RETURN PRECAUTIONS: If any symptoms change first call your primary physician, if it is after-hours your primary doctors office should have a provider financial institution vice president you can speak with. If the symptoms are severe or very concerning to you then call 911 or return to the ED. [[id number]] Kirby Ocasio MD Emergency Physician [facility] Prescriptions: New epinephrine [EpiPen] 0.3 mg/0.3 mL auto-injector 0.3 mg IM Q10M PRN (Reason: anaphylaxis) Qty: 2 0RF Rx Instructions: for 2 doses No Action ibuprofen 800 mg tablet 800 mg PO Q8H PRN (Reason: pain) Qty: 30 0RF oxycodone-acetaminophen [Percocet] 5-325 mg tablet 1 tab PO Q8H PRN (Reason: pain) 3 Days Qty: 7 0RF penicillin V potassium 500 mg tablet 500 mg PO BID 10 Days Qty: 20 0RF ondansetron 4 mg tablet,disintegrating 4 mg PO Q8H PRN (Reason: nausea and vomiting) Qty: 20 0RF whdcgquclr-zyzwncafkqemp-klht 50-325-40 mg tablet 1 tab PO Q6H PRN (Reason: haeadace) Qty: 20 0RF amoxicillin-pot clavulanate 875-125 mg tablet 1 tab PO BID Qty: 20 0RF tamsulosin 0.4 mg capsule 0.4 mg PO BEDTIME Qty: 14 0RF naproxen 500 mg tablet 500 mg PO BID Qty: 20 0RF ciprofloxacin HCl 500 mg tablet 500 mg PO BID Qty: 13 0RF oxycodone 5 mg tablet 5 mg PO Q6H PRN (Reason: pain) Qty: 10 0RF Rx Instructions: Partial Fill upon patient request. cefuroxime axetil 250 mg tablet 250 mg PO BID 7 Days Qty: 13 0RF Interventions: ED Discharge Assessment Last Done: 08/05/24 00:10 Discharge Date/Time: 08/05/24 00:11 Print Language: [place]ese
[2024-08-04 22:00] VITALS: BP 113/80; PULSE 75; RESP 16; TEMP 36.8; O2SAT 100
[2024-08-04] MEDS: methylPREDNISolone Sod Succ 125 MG/2 ML VIAL IVPUSH (22:29)
[2024-08-04] MEDS: Famotidine/PF 20 MG/2 ML VIAL IVPUSH (22:29)
[2024-08-04] MEDS: diphenhydrAMINE HCL 50 MG/ML VIAL IVPUSH (22:29)
--- OUTSIDE RECORDS SUMMARY | 2024-08-04 22:36 | XMS_ITS | Encounter Summary ---
Author Organization [employer] Address [address] [place] [address] Care Team Providers Care Mobility Architect Manager Name Role Phone Iva Howard MD Primary Care Provider + Encounter Details Date Type Department Care Team ([facility] Contact Info) Description 03/04/2023 Orders Only [facility] [address], [place] [phone] Nichole Ralph, RN [address] [place] [address] Social History Tobacco Use Types Packs/Day Years Used Date Smoking Tobacco: Never Passive Smoke Exposure: Never Smokeless Tobacco: Never Alcohol Use Standard Drinks/Week Comments Yes 2 (1 standard drink = 0.6 oz pur e alcohol) Housing Stability Answer Date Recorded What is your housing situation today? I have lizabeth vargas 02/26/[address] you li ve. Do you have problems with any of the following? None of the above 02/26/2023 Food Insecurity Answer Date Recorded Within the past 12 months, y ou worried that your food would run out before you got money to buy more: Sometimes True 2022 Within the past 12 months,th e food you bought just didn't last and you didn't have enough money to get more: Sometimes True 02/26/2023 Transportation Answer Date Recorded In the past 12 months, has l ack of transportation kept you from medical appts, meetings, work or from getting things needed for daily living? No 02/04/2023 Utilities Answer Date Recorded In the past 12 months, has t he electric, gas, oil or water [employer] threatened to shut off services in your home? No 02/26/2023 Comments Unknown Sex and Gender Information Value Date Recorded Sex Assigned at Female 01/28/2022 10:19 AM EDT Legal Sex Female 10:19 AM EDT Gender Identity Female 01/28/2022 10:19 AM EDT Sexual Orientation Straight 06/12/2022 10 :38 AM EDT documented as of this encounter Plan of Treatment Upcoming Encounters Date Type Department Care Team (Late st Contact Info) Description 11/22/2024 2:30 PM EDT Office Visit [facility] [address] [place] [address] Iva Howard MD [address] [place] [address] documented as of this encounter Procedures Procedure Name Priority Date/Time Associated Diagnosis Comments PAP SMEAR Routine 01/23/2021 12:00 AM EDT documented in this encounter Results * Pap Smear (01/23/2021 12:00 AM EDT) Swab us Historical Provider LAB CYTOLOGY ORDERABLES F inal Result [facility] [address] [place] [address] documented in this encounter Visit Diagnoses Not on filedocumented in this encounter Care Teams Mobility Architect Manager Relationship Specialty Start Date End Date Iva Howard MD [address] [place] [id number] PCP - General Family Medicine 12/23/17 Morenita Vargas Electrical Research Engineer 03/06/23 06/05/23 documented as of this encounter
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
--- OUTSIDE RECORDS SUMMARY | 2024-08-04 22:36 | XMS_ITS | Encounter Summary ---
Author Organization [employer] Address [address] [place] [address] Care Team Providers Care Quartz Cutter Name Role Phone Iav Howard MD Primary Care Provider + Reason for Visit * Reason Onset Date Comments PT 1 05/20/2023 Encounter Details Date Type Department Care Team ([facility] st Contact Info) Description 05/20/2023 Telephone [facility] MEDICINE [address] [place], [place] [phone] Iva Howard MD [address] [place], [place] [phone] PT 1 Social History Tobacco Use Types Packs/Day Years Used Date Smoking Tobacco: Never Passive Smoke Exposure: Never Smokeless Tobacco: Never Alcohol Use Standard Drinks/Week Comments Yes 2 (1 standard drink = 0.6 oz pur e alcohol) oca Housing Stability Answer Date Recorded What is [...] t he electric, gas, oil or water company threatened to shut off services in your home? No 02/26/2023 Depression Answer Date Recorded Patient Health Questionnaire-2 Score 0 03/18/2023 Comments Unknown Sex and Gender Information Value Date Recorded Sex Assigned at Female 01/28/2022 10:19 AM EDT Legal Sex Female 10:19 AM EDT Gender Identity Female 01/28/2022 10:19 AM EDT Sexual Orientation Straight 06/12/2022 10 :38 AM EDT documented as of this encounter Miscellaneous Notes * Telephone Encounter - Tabatha Abbott - 05/21/2023 10:14 AM EST Member Pt 1 initiated but we has 3 different addresses [facility] and [place] in chart which is what was used needs to update address with and Health Center if different * Telephone Encounter - Reno Fraser - 05/20/2023 9:45 AM EST PT1 needed Date: N/A Time: N/A Visits: 3 times monthly Address: [address] [place] [address] Facility: [address] Wheel Chair: No Tawer Needed: Yes 1 PT1 needed Date: N/A Time: N/A Visits: 3 times monthly Address: [address] [facility] Facility: [address] [place] [address] Wheel Chair: No Tawer Needed: Yes 1 documented in this encounter Plan of Treatment Upcoming Encounters Date Type Department Care Team (Late st Contact Info) Description 11/22/2024 2:30 PM EDT Office Visit [facility] MEDICINE [address] [place] [address] Iva Howard MD [address] [place] [address] documented as of this encounter Visit Diagnoses Not on filedocumented in this encounter Care Teams Quartz Cutter Relationship Specialty Start Date End Date Iva Howard MD [address] [place] [address] PCP - General Family Medicine 12/23/17 Morenita Vargas Frog Farmer 03/06/23 06/05/23 documented as of this encounter
--- OUTSIDE RECORDS SUMMARY | 2024-08-04 22:37 | XMS_ITS ---
Author Organization [employer] Address [address] [place] [address] Care Team Providers Care Automatic Screwmaker Name Role Phone Iva Howard MD Primary Care Provider + CHW Complex Status:Outreach In Progress (Enrolling) Start date:08/02/2024 Enrollment reason:ADT Feed Overview ADT- [facility] ED 07/30/24. Please outreach for enrollment. Case Team Name Relationship Phone Chyna Fraser (Responsible Staff) [phone] Continued Care and Services Coordination
--- OUTSIDE RECORDS SUMMARY | 2024-08-04 22:37 | XMS_ITS | Clinical Summary ---
Author Organization [employer] Address [address] [facility] 7t [place] [address] Care Team Providers Care Attorney Recruiter Name Role Phone Iva Howard MD Primary Care Provider + Allergies No known active allergies Medications valACYclovir (Valtrex) 500 MG tablet Take 500 mg by mouth 2 times daily. Active Aspirin Low Dose 81 MG EC tablet Take 162 mg by mouth Once per day. 2 Active cetirizine (ZyrTEC) 10 MG tablet Take 10 mg by mouth Once per day. 2 Active sodium chloride ([place] Nasal [place]) 0.65 % nasal sprayIndications :Viral syndrome 1-2 sprays on each nostril every 2-3 hours as needed for nasal congestion 30 mL 1 3 Active acetaminophen (Tylenol) 325 MG tabletIndication s:Viral syndrome Take 2 tablets (650 mg) by mouth every 4 (four) hours if needed for mild pain, moderate pain, headaches or fever. 30 tablet 3 Active fluticasone (Flonase) 50 MCG/ACT nasal sprayIndications :Allergic Rhinitis,Eye Pruritus,Nasal Congestion,Sneez ing Administer 2 sprays into each nostril Once per day. Shake gently. Before first use, prime pump. After use, clean tip and replace cap. Active albuterol (Ventolin HFA) 108 (90 Base) MCG/ACT inhalerIndicatio ns:Moderate persistent asthma, unspecified whether complicated TAKE 2 PUFFS BY MOUTH EVERY 4 TO 6 HOURS NEEDED 18 g 2 4 Active budesonide (Pulmicort) 90 MCG/ACT inhalerIndicatio ns:Moderate persistent asthma, unspecified whether complicated Inhale 1 puff in the morning and at bedtime. Rinse mouth with water after use to reduce aftertaste and incidence of candidiasis. Do not swallow. 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 Sx improved significantly with medications and has not had any other related Sx. Will repeat renal US to FU on her nephrosis in about 2-3 m Encouraged increase water and decrease soda intake Sexually transmitted disease counseling 03/18/20 23 Assessment & Plan (03/18/2023 9:58 AM EST): Counseled regarding use condoms at all times Will complete STI testing today and counseled her partner to do his own testing as well Subacute cough 02/13/2023 Assessment & Plan (02/13/2023 9:51 AM EST): Most likely asthma and use albuterol PRN Order PFTs Encounter for preventive health examination 01/29 Assessment & Plan (02/13/2023 9:49 AM EST): Discussed with patient re increase fresh fruit and vegetable intake. Counseled re moderate exercise as tolerated, up to 20min/d Patient feels safe at home. PAP smear up to date, will obtain record from [facility] next one due 2024 Mammogram will start on 2024 (age 29 yr) due to family x of Breast cancer Eye exam up to date, next one due 2024 Labs to be ordered Vaccinations agreed to Flu IZ today, will order IZ titers, denied Covid IZ Dental visit next one 06/2023 Mild intermittent asthma without complication Assessment & Plan (03/18/2023 9:58 AM EST): Doing well on albuterol PRN and FU PFT results next month Varicose veins of left lower extremity with pain 02/13/2023 Assessment & Plan (02/13/2023 9:52 AM EST): Counseled regarding wt reduction and increase exercise counseled to use compression stockings to the pantyhose thigh level Fu 4 wks Other specified anemias 02/13/2023 Assessment & Plan (02/13/2023 9:53 AM EST): Apparently from Order CBC and ferritin and FU Blurring of visual image 03/12/2022 Adjustment disorder with mixed emotional feature s 01/12/2018 Sialolithiasis 12/09/2017 Perineurial cyst 08/06/2017 Steatosis of liver 08/06/2017 Intra-abdominal lymphadenopathy 07/08/2017 Recurrent falls 07/08/2017 Secondary physiologic amenorrhea 07/08/2017 Chronic low back pain 04/10/2017 Wheezing 03/11/2017 Foot callus 02/25/2017 Pain in the coccyx 02/25/2017 Puncture wound of plantar aspect of foot 017 Hyperthyroidism 12/23/2016 Assessment & Plan (03/18/2023 9:57 AM EST): She's off medication for more than 6 m and seems to be euthyroid FU thyroid US and FU w/ me in 3 m Assessment & Plan (02/13/2023 9:50 AM EST): Cont off medication for now, will decide on further referral at next appointment Order labs and ultrasound Obesity 12/23/2016 Assessment & Plan (02/13/2023 9:51 AM EST): Order A1c and BMP Discussed re weight reduction options including exercise, life style modifications, diet, referral to mri specialist. Discussed re lower calorie intake, increase dietary fiber Recurrent major depressive episodes, moderate Encounters Date Type Department Care Team Description 08/03/2024 Telephone [facility] MEDICINE [address] [place] [phone] Iva Howard MD October recall 08/02/2024 Patient Outreach [address] [phone] Iva Howard MD Care Coordination (CM/CHW outreach) 08/02/2024 Patient Outreach [address] [phone] Iva Howard MD Care Coordination (CHW chart review) 08/02/2024 Patient Outreach [address] [phone] Iva Howard MD Care Management (C3- chart review) 08/02/2024 Patient Outreach [address] [phone] Iva Howard MD 06/11/2024 Population Health Risk Score [facility] (C3) Department [address] [place] [phone] Provider, Population Health Generic 06/01/2024 11:30 AM EST Office Visit [facility] ADULT DENTAL [address] [place] [phone] Andrew Damon DDS Dental root caries (Primary Dx); Viral syndrome 06/01/2024 Telephone [facility] ADULT DENTAL [address] [place] [address] Andrew Damon DDS unable to post insurance 05/20/2024 Telephone [facility] [address] [place] [phone] Iva Howard MD May recall from Last 3 Months Immunizations Name Administration Dates Next Due HPV, Quadrivalent 05/08/2007,01/07/2007,11/08/19 07 Hep A, Adult 10/25/2013 Hep A, Unspecified 11/07/2006 Influenza injectable quadriv alent preservative free 02/13/2023 Influenza, IIV3, injectable 01/19/2018, 5,01/04/2014 Meningococcal MPSV4 02/08/2008 Tdap 04/27/2018, 7,09/27/2014,01/07 Social History Tobacco Use Types Packs/Day Years Used Date Smoking Tobacco: Never Passive Smoke Exposure: Never Smokeless Tobacco: Never Tobacco Cessation:Counseling Given: Not Answered Alcohol Use Standard Drinks/Week Comments Yes 2 (1 standard drink = 0.6 oz pur e alcohol) oca Alcohol Answer Date Recorded Frequency of Alcohol Consumption Not on file 08/12/2023 Average Number of Drinks Not on file 024 Frequency of Binge Drinking Not on file 07/29 Score 0 08/12/2023 Housing Stability Answer Date Recorded What is your housing situation today? I do not have housing (Staying with others, in a hotel, in a nursing home, living outside on the street, on a beach, in a car, or in a park 02/29/[address] you li ve. Do you have problems with any of the following? Not on file 02/29/2024 Food Insecurity Answer Date Recorded Within the past 12 months, y ou worried that your food would run out before you got money to buy more: Never True 06/13/2023 Within the past 12 months,th e food you bought just didn't last and you didn't have enough money to get more: Never True Transportation Answer Date Recorded In the past 12 months, has l ack of transportation kept you from medical appts, meetings, work or from getting things needed for daily living? Yes, it has kept me from non-medical meetings, work, or getting things that I need 06/13/2023 Utilities Answer Date Recorded In the past [...] Orientation Straight 06/12/2022 10 :38 AM EDT Last Filed Vital Signs Vital Sign Reading Time Taken Comments Blood Pressure 158/100 06/01/2024 11:52 AM EST Pulse 91 08/12/2023 2:29 PM EDT Temperature 36.2 ??C (97.1 ??F) 08/12/2023 2:29 PM ED T Respiratory Rate 20 08/12/2023 2:29 PM EDT Oxygen Saturation 98% 08/12/2023 2:29 PM EDT Inhaled Oxygen Concentration - - Weight 123 kg (271 lb 9.6 oz) 08/12/2023 2:29 PM EDT Height 185.4 cm (6' 1 ) 08/12/2023 2:29 PM EDT Body Mass Index 35.83 08/12/2023 2:29 PM EDT Plan of Treatment Upcoming Encounters Date Type Department Care Team (Late st Contact Info) Description 11/22/2024 2:30 PM EDT Office Visit [facility] MEDICINE [address] [place] [address] Iva Howard MD [address] [place] [address] Health Maintenance Due Date Last Done Comments Dental Oral Exam 1994 Dental Prophylaxis 1994 Dental X-Ray: Bitewings 1994 Dental X-Ray: Full Mouth 1994 Family Planning (PISQ) 2009 Hepatitis B Vaccines (1 of 3 - 19+ 3-dose series) 2013 Pneumococcal Vaccine: Pediatrics (0 to 5 Years) and At-Risk Patients (6 to 49) Years) (1 of 2 - PCV) 2013 COVID-19 Vaccine ( season) 2023 10/02/2021, 08/09/2020, 07/12/2020 Influenza Vaccine (#1) 2023 , 01/19/2018, 04/28/2014, Additional history exists SDOH Screening 02/27/2024 02/26/2023 Depression Screening 03/18/2024 03/18/2023, 03/18/20 23 Alcohol/Substance Use Screening 08/11/2024 08/12/2023 Tobacco Screening 04/28/2025 04/28/2024 Cervical Cancer Screening 01/23/2026 HPV/Cotest 01/23/2026 01/23/2021 Pap Smear 01/23/2026 01/23/2021, 01/23/2021 Lipid Panel 02/14/2028 02/13/2023 DTaP/Tdap/Td Vaccines (5 - Td or Tdap) 04/27/2028 04/27/2018, 07/04/2016, 09/27/2014, Additional history exists Zoster Vaccines (1 of 2) 2044 RSV Patients and Patients Aged 60 years or older (1 - 1-dose 75+ series) 2069 HPV Vaccines Completed 05/08/2007, 12/29, 11/07/2006 Meningococcal Vaccine Aged Out 02/08/2008 No neel mary jane eligible based on patient's age to complete this topic Hepatitis A Vaccines Completed 10/25/2013, 11/08/19 07 Hepatitis C Screening Completed 02/13/2023, 022 HIV Screening Completed 03/18/2023, 06/07/2021 HIB Vaccines Aged Out No longer eligi ble based on patient's age to complete this topic IPV Vaccines Aged Out No longer eligi ble based on patient's age to complete this topic RSV under 20 months Aged Out No longe r eligible based on patient's age to complete this topic Rotavirus Vaccines Aged Out No longer eligible based on patient's age to complete this topic Procedures Procedure Name Priority Date/Time Associated Diagnosis Comments CASE PRESENTATION, DETAILED AND EXTENSIVE TREATMENT PLANNING Routine 06/01/2024 11:30 AM EST LIMITED ORAL EVALUATION - PROBLEM FOCUSED Routine 06/01/2024 11:30 AM EST 5 EXTRACTION, ERUPTED TOOTH OR EXPOSED ROOT (ELEVATION/FORCEPS REMOVAL) Routine 06/01/2024 11:30 AM EST Dental root caries HIV 1/2 ANTIGEN/ANTIBODY, FOURTH GENERATION W/RFL Routine 03/18/2023 9:47 AM EST Sexually transmitted disease counseling HEPATITIS PANEL, GENERAL Routine 02/13/2023 9:58 AM EST Encounter for preventive health examination LIPID PANEL WITH REFLEX TO DIRECT LDL Routine 02/13/2023 9:58 AM EST Hyperthyroidism HM PAP/HPV Routine 01/23/2021 PAP SMEAR Routine 01/23/2021 12:00 AM EDT from Last 3 Months or Most Recently Relevant to Health Maintenance Results * HIV-1/2 Antigen and Antibodies, Fourth Generation, with Reflexes (03/18/2023 9:47 AM EST) HIV AB/AG Nonreactive Nonreactive [facility] Comment:HIV-1 p24 Ag and/or HIV-1/HIV-2 Ab not detected.A test result that is nonreactive does not exclude thepossibility of exposure to or infection with HIV-1 and/orHIV-2. Nonreactive results in this assay for individualswith prior exposure to HIV-1 and/or HIV-2 may be due toantigen and antibody levels that are below the limit ofdetection of this assay.The [place] HIV Ag/Ab Combo assay result andsupplemental assay results should be interpreted inconjunction with the patient's clinical presentation,history and other laboratory results. If the results areinconsistent with clinical evidence, additional testing issuggested to confirm the result. Blood Venous blood specimen / Unknown 03/18/2023 9:47 AM EST 03/18/2023 11:16 AM EST us Iva Howard MD LAB BLOOD ORDERABLES Fin al Result [facility] [address] [place] [address] [phone] * (ABNORMAL) Lipid Panel with Reflex to Direct LDL (02/13/2023 9:58 AM EST) Triglycerides 111 <150 mg/dL [facility] Comment:Desirable Triglyceri de: less than 150 mg/dLBorderline High Triglyceride 150-199 mg/dLHigh Triglyceride: 200-499 mg/dLVery High Triglyceride: greater than or equal to 5OO mg/dL Cholesterol 186 <200 mg/dL [facility] Comment:Desirable Cholestero l: less than 200 mg/dLBorderline High Cholesterol: 200-239 mg/dLHigh Cholesterol: greater than 239 mg/dL LDL Cholesterol Calculated 118(H) <100 mg/dL [facility] Comment:Desirable LDL: less than 100 mg/dLNear Optimal/Above Optimal LDL: 110- 129 mg/dLBorderline High LDL: 130-159 mg/dLHigh LDL: 160-189 mg/dLVery High LDL: greater than or equal to 190 mg/dL HDL Cholesterol 46 >40 mg/dL [facility] Comment:Desirable HDL: great er than 40 mg/dL Note: This HDL assay may give artificially low results in patients with liver disease. Blood 02/13/2023 9:58 AM EST 02/13/2023 11:01 AM EST us Iva Howard MD LAB BLOOD ORDERABLES Fin al Result [facility] [address] [place] [phone] * Hepatitis Panel, General (02/13/2023 9:58 AM EST) Hepatitis A IgM Nonreactive Nonreactive [facility] Comment:IgM antibodies to [place]AMA V not detected; does not exclude earlyacute or recovered HAV infection. ~Hepatitis B Surface Antibody NONREACTIVE Nonreactive [facility] Comment:Nonreactive: < 8.00 mIU/mL Hepatitis B Core Antibody Nonreactive Nonreactive [facility] Hepatitis C Antibody Nonreactive Nonreactive [facility] Comment:Antibodies to HCV no t detected; does not exclude early acuteHCV infection. Hepatitis B Surface Ag Negative Negative [facility] Blood 02/13/2023 9:58 AM EST 02/13/2023 11:01 AM EST us Iva Hwoard MD LAB BLOOD ORDERABLES Fin al Result [facility] [address] [place] [address] [phone] * Hm Pap Smear (01/23/2021) Pap Negative for intraephithelial lesion or malignancy Negative for intraephithelial lesion or malignancy, Other HPV Undetected Undetected, Indeterminate, Quantitative, Not Detected us Historical Provider MD HEALTH MAINTENANCE Final Result * Pap Smear (01/23/2021 12:00 AM EDT) Swab us Historical Provider LAB CYTOLOGY ORDERABLES F inal Result Performing Organization Address City/[facility] Co de Phone Number [facility] [address] [place] [address] from Last 3 Months or Most Recently Relevant to Health Maintenance Insurance [employer] [employer] C3 * Guarantor: Morenita Abbott Account Type Relation to Patient Date of Phone Billing Address Dental Self 1995 [address] [facility] [address] [place] [address] [facility] AD[facility] Care Teams Attorney Recruiter Relationship Specialty Start Date End Date Iva Howard MD [address] [place] [phone] PCP - General Family Medicine 12/23/17
--- OUTSIDE RECORDS SUMMARY | 2024-08-04 22:37 | XMS_ITS | Encounter Summary ---
Author Organization [employer] Address [address] 7 [place] [address] Care Team Providers Care Magento Web Developer Name Role Phone Iva Howard MD Primary Care Provider + Encounter Details Date Type Department Care Team ([facility] Contact Info) Description 08/02/2024 Patient Outreach [facility] [address] [place], [place] [phone] Iva Howard MD [address] [place] [address] Social History Tobacco Use Types Packs/Day Years [...] with others, in a hotel, in a detention, living outside on the street, on a [...] Description 11/22/2024 2:30 PM EDT Office Visit [facility] MED[facility]INE [address] [place] [phone] Iva Howard MD [address] [place] [phone] documented as of this encounter Visit Diagnoses Not on filedocumented in this encounter Care Teams Magento Web Developer Relationship Specialty Start Date End Date Iva Howard MD [address] [place] [phone] PCP - General Family Medicine 12/23/17 documented as of this encounter
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
--- OUTSIDE RECORDS SUMMARY | 2024-08-04 22:37 | XMS_ITS | Encounter Summary ---
Author Organization [employer] Address [address] [facility] 7 [place] [address] Care Team Providers Care Composition Weatherboard Applier Name Role Phone Iva Howard MD Primary Care Provider + Reason for Visit * Reason Onset Date Comments October recall 08/03/2024 Encounter Details Date Type Department Care Team ([facility] st Contact Info) Description 08/03/2024 Telephone [facility] [address] [place], [place] [phone] vIa Howard MD [address] [place], [place] [phone] October recall Social History Tobacco Use Types Packs/Day Years [...] with others, in a hotel, in a snf, living outside on the street, on a [...] the past 12 months, has t he [employer], gas, oil or water [employer] threatened to shut off services in your [...] encounter Miscellaneous Notes * Telephone Encounter - Maria Luisa Blake MA - 08/03/2024 2:30 PM EDT Telephone call to patient to schedule the following recall: Visit type: Physical Appointment notes: Physical Patient agree to appointment on 11/22/24 at 2:30 PM with Lee. documented in this encounter Plan of Treatment Upcoming Encounters Date Type Department Care Team (Late st Contact Info) Description 11/22/2024 2:30 PM EDT Office Visit [facility] [address] [place] [address] Iva Howard MD [address] [place] [phone] documented as of this encounter Visit Diagnoses Not on filedocumented in this encounter Care Teams Composition Weatherboard Applier Relationship Specialty Start Date End Date Iva Howard MD [address] [place] [address] [phone] PCP - General Family Medicine 12/23/17 documented as of this encounter
--- OUTSIDE RECORDS SUMMARY | 2024-08-04 22:37 | XMS_ITS | Encounter Summary ---
Author Organization [employer] Address [address] [facility] [address] 7 [place] [address] Care Team Providers Care Threader Name Role Phone Iva Howard MD Primary Care Provider + Reason for Visit * Reason Comments Care Coordination CM/CHW outreach Encounter Details Date Type Department Care Team (Latest Contact Info) Description 08/02/2024 Patient Outreach [facility] MEDICINE [address] [place], [place] [phone] Iva Howard MD [address] [place], [place] [phone] Care Coordination (CM/CHW outreach) Social History Tobacco Use Types Packs/Day Years [...] with others, in a hotel, in a longterm, living outside on the street, on a [...] t he electric, gas, oil or water [employer] threatened to shut off services in your [...] Progress Notes * Chyna Fraser - 08/02/2024 1:23 PM EDT CHW Chyna Fraser, placed outbound call to patient in regards to offer Adult Complex Care Program and SDOH services. No answer at this time. CHW LVM introducing herself from [facility] with CHW's name, department and direct contact number requesting call back. Will re-attempt to contact within 5 days. and address not confirmed. documented in this encounter Plan of Treatment Upcoming Encounters Date Type Department Care Team (Late st Contact Info) Description 11/22/2024 2:30 PM EDT Office Visit [facility] MEDICINE [address] [place] [address] Iva Howard MD [address] [place], [place] [phone] documented as of this encounter Visit Diagnoses Not on filedocumented in this encounter Care Teams Threader Relationship Specialty Start Date End Date Iva Howard MD [address] [place] [phone] PCP - General Family Medicine 12/23/17 documented as of this encounter
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
--- OUTSIDE RECORDS SUMMARY | 2024-08-04 22:37 | XMS_ITS ---
Author Organization [employer] Address [address] [facility] [address] [place] [address] Care Team Providers Care Circulation Tender Name Role Phone Iva Howard MD Primary Care Provider + CM Complex Status:Outreach In Progress (Enrolling) Start date:08/02/2024 Overview [facility] ED 07/30/24 Case Team Name Relationship Phone Katie Rao RN Registered Nurse(Responsible S taff) [phone] Continued Care and Services Coordination
--- OUTSIDE RECORDS SUMMARY | 2024-08-04 22:37 | XMS_ITS | Encounter Summary ---
Author Organization [employer] Address [address] [facility] 7 [place] [address] Care Team Providers Care Hardware Manager Name Role Phone Iva Howard MD Primary Care Provider + Reason for Visit * Reason Onset Date Comments unable to post insurance 06/01/2024 Encounter Details Date Type Department Care Team (Late st Contact Info) Description 06/01/2024 Telephone [facility] [address], [place] [phone] Andrew Damon DDS [address], [place] [phone] unable to post insurance Social History Tobacco Use Types Packs/Day Years [...] encounter Miscellaneous Notes * Telephone Encounter - Savana Marrufo - 06/01/2024 8:44 AM EST Patient has an 11:30 emergency appt. Unable to post insurance as MH portal is not running on PAR side DR documented in this encounter Plan of Treatment Upcoming Encounters Date Type Department Care Team (Late st Contact Info) Description 11/22/2024 2:30 PM EDT Office Visit [facility] [address] [place] [address] Iva Howard MD [address] [place] [address] documented as of this encounter Visit Diagnoses Not on filedocumented in this encounter Care Teams Hardware Manager Relationship Specialty Start Date End Date Iva Howard MD [address] [place] [address] PCP - General Family Medicine 12/23/17 documented as of this encounter
--- NOTE | 2024-08-04 23:13 | PC.NURSE ---
pt a&ox4, respirations even and unlabored. pt reports she had been at a restaurant when she ate tahnini in which she thinks caused an allergic reaction. pt reports itching on her head and body and some weakness. 20g placed in left forearm, pt medicated per mar, pt able to speak in full clesr sentences.
[2024-08-05 00:10] VITALS: BP 122/69; PULSE 76; RESP 17; TEMP 37; O2SAT 99
== END 2024-08-05 00:11 | disposition home or self-care (01) ==
PROVIDERS: Emergency Provider Emergency Medicine; PCP Internal Medicine
DX: L50.0 Allergic urticaria (principal); R42 Dizziness and giddiness; Z79.899 Other long term (current) drug therapy
CPT/HCPCS: 96374; 96375; 99284; J1200; J1308; J2919

== ENCOUNTER 2024-09-15 12:09 | Emergency (ER) | payer MEDICAID, SELFPAY ==
[2024-09-15] VITALS (14 sets, daily range): BP systolic 102–166; BP diastolic 50–94; PULSE 73–83; RESP 14–18; TEMP 36.6–37.1; O2SAT 98–100; BMI 33.9
--- NOTE | ~2024-09-15 | US_ITS ---
EXAMINATION: US PELVIS CLINICAL INFORMATION: Heavy pelvic bleeding. 28-year-old female. COMPARISON: 05/12/2019. TECHNIQUE: Ultrasound of the pelvis is performed using both transabdominal and transvaginal transducers along with Doppler. Transvaginal imaging is performed due to inadequate visualization transabdominally. FINDINGS: Uterus: The uterus is anteverted , anteflexed, and measures 9.2 x 4.3 x 5.7 cm. Normal-appearing cervix. The double wall endometrial thickness is 22 mm. It is hypervascular. The uterus is smooth in contour and has normal myometrial echogenicity. No visible fibroid. Adnexa: Both ovaries are visualized. There is normal color flow to the adnexa. There is no ovarian torsion. There is no pelvic ascites or fluid collection. Right ovary measures 3.4 x 2.0 x 3.6 cm. Volume = 12.8 mL. Normal sonographic appearance. Left ovary measures 3.9 x 1.8 x 2.0 cm. Volume = 7.4 mL. Complex, likely hemorrhagic 2.4 cm follicular cyst. US/US pelvic and transvaginal IMPRESSION: 1. Thickened, hypervascular endometrium measuring up to 22 mm. Findings suggest hyperplasia, polyp, or possibly neoplasia. 2. There is a 2.4 cm complex appearing left ovarian cyst, appearance favoring hemorrhagic cyst. 3. Normal right ovary. Electronically signed by: Fred Ortez MD 09/15/2024 01:52 PM EDT
--- NOTE | ~2024-09-15 | XR_ITS ---
EXAMINATION: XR CHEST CLINICAL INFORMATION: dyspnea COMPARISON: April 20, 2024. TECHNIQUE: 2 views of the chest were obtained. FINDINGS: No consolidation, pleural effusion or pneumothorax. No hyperinflation. Cardiomediastinal silhouette size is normal. Mild multilevel thoracic spondylosis. Patient's large body habitus.. XR/XR chest 2V IMPRESSION: No acute airspace disease. Electronically signed by: Jovi Moore MD 09/15/2024 12:44 PM EDT
--- NOTE | 2024-09-15 12:21 | ED_ITS ---
HPI - General Adult General Chief complaint: Vaginal Bleeding Stated complaint: Vaginal bleeding multi days, abd cramp, dizziness Time Seen by Provider: 09/15/24 12:17 Source: patient, EMS, RN notes reviewed, old records reviewed and other ([facility] records) Mode of arrival: EMS Limitations: no limitations History of Present Illness ED Provider: Curtis HPI narrative: Patient is a 28-year-old female with history of moderate persistent asthma, kidney stones, hepatic steatosis, hyperthyroidism, obesity presenting to the emergency department from [facility] office for evaluation of heavy vaginal bleeding. Patient reports bleeding began 13 days ago. Has been using 1-2 pads per hour, having large clots. Reports associated swelling to ankles and hands, fatigue, dyspnea with exertion. She states that provider at [facility] had difficulty performing a pelvic exam today due to large amount of vaginal bleeding. She states her last regular menstrual period was in February. In May she had 1st episode of abnormal uterine bleeding with heavy bleeding and large clots, was seen at [facility] at that time. Did not require a transfusion then. Reports she did not have any vaginal bleeding from that time until 13 days ago. Reports some suprapubic cramping. Has had pelvic ultrasound and STI testing which she was told was normal. Has declined OCPs for bleeding control. Had 3 vaginal deliveries with 1 which was in 2022. Related Data Previous Rx's ?Medication ?Instructions ?Recorded ibuprofen 800 mg tablet 800 mg PO Q8H PRN pain #30 t abs 04/16/20 oxycodone-acetaminophen 5 mg-325 1 tab PO Q8H PRN pain 3 days #7 04/16/20 mg tablet (Percocet) tabs penicillin V potassium 500 mg 500 mg PO BID 10 days #2 0 tabs 04/16/20 tablet amoxicillin 875 mg-potassium 1 tab PO BID #20 tabs 05/23 clavulanate 125 mg tablet ciprofloxacin HCl 500 mg tablet 500 mg PO BID #13 tabs 02/25/23 naproxen 500 mg tablet 500 mg PO BID #20 tabs 02/25 oxycodone 5 mg tablet 5 mg PO Q6H PRN pain #10 tab s 02/25/23 tamsulosin 0.4 mg capsule 0.4 mg PO BEDTIME #14 caps 1 04/27/22 ondansetron 4 mg disintegrating 4 mg PO Q8H PRN nausea and 02/28/23 tablet vomiting #20 tabs sddouctiyg-ylspcuvhpxttc-omgcfina 1 tab PO Q6H PRN hae adace #20 tabs 10/04/23 50 mg-325 mg-40 mg tablet cefuroxime axetil 250 mg tablet 250 mg PO BID 7 days # 13 tabs 04/21/24 epinephrine 0.3 mg/0.3 mL 0.3 mg (0.3 mL) IM Q10M PRN 08/04/24 injection, auto-injector (EpiPen) anaphylaxis #2 ea metronidazole 500 mg tablet 500 mg PO BID 7 days #13 t abs 09/15/24 Allergies Allergy/AdvReac Type Severity Reaction Status Date / Time No Known Allergies (No Known Allergy Verified 09/15/24 13:08 Allergies*) Review of Systems 2 Review of Systems: As per HPI Yes all other systems are reviewed and are negative PMFSH Past Medical History Medical History Preeclampsia Hypothyroid HPV in female Ovarian cyst Social History Social History Unable to assess alcohol history related to: Unknown Alcohol intake: current Alcohol intake frequency: does not drink Substance Use Type: Marijuana Physical Exam ED Vital Signs: Vital Signs - 24 hr 09/15/24 12:17 09/15/24 13:07 09/15/24 14:37 Temperature 98.1 F 98.1 F Pulse Rate 82 82 79 Respiratory Rate 18 18 18 Blood Pressure 115/77 115/77 134/75 Pulse Oximetry 98 98 99 Oxygen Delivery Method Room Air Room Air Room Air 09/15/24 16:04 09/15/24 16:22 09/15/24 16:51 Temperature 98.5 F 98.4 F 98.4 F Pulse Rate 77 74 73 Respiratory Rate 18 16 18 Blood Pressure 117/61 120/70 115/57 L Pulse Oximetry 99 Oxygen Delivery Method Room Air 09/15/24 18:43 09/15/24 18:59 09/15/24 19:00 Temperature 97.9 F 97.9 F 98.7 F Pulse Rate 75 75 81 Respiratory Rate 14 14 16 Blood Pressure 121/52 L 121/52 L 116/59 L Pulse Oximetry 100 Oxygen Delivery Method Room Air 09/15/24 20:12 09/15/24 20:28 09/15/24 22:56 Temperature 98.7 F 98.8 F 98.6 F Pulse Rate 82 79 80 Respiratory Rate 16 16 16 Blood Pressure 116/59 L 109/50 L 102/51 L Pulse Oximetry 99 Oxygen Delivery Method Room Air BMI result Body Mass Index 33.9 Vital signs have been reviewed and appear to be correct. Blood pressure normal. Heart rate normal. Respiratory rate normal. Temperature normal. Oxygen saturation normal. Const General: cooperative, healthy appearing, no acute distress, alert and awake Orientation/consciousness: oriented to person, oriented to place, oriented to time and patient oriented x3 Limitations: no limitations HENMT Head: Yes normocephalic and Yes atraumatic Ears: external ears normal General nose exam: Normal external nose present Face and sinus: Yes face symmetric Mouth: oropharynx normal and moist mucous membranes Throat: Yes uvula midline Eyes Conjunctivae: conjunctival abnormal bilateral pallor Pupils: Equal, round and reactive pupils present Neck Neck: Yes normal visual inspection and Yes supple Resp Effort & Inspection: normal respiratory effort and able to speak in complete sentences Auscultation: clear to auscultation bilaterally Cardio Rate: regular rate Rhythm: regular rhythm Heart sounds: S1 normal heart sound present and S2 normal heart sound present GI Palpation (GI): Soft to palpation and nontender Auscultation: normoactive bowel sounds Other: Pelvic exam chaperoned by [facility], orthodontic technician General: Yes no CVA tenderness Back/Spine/Pelvis Back: no CVA tenderness Skin General skin exam: elasticity normal, turgor normal and pallor Neuro General: oriented to person, oriented to place, oriented to time, patient oriented x3, moves all extremities, no focal motor deficits and CN's II-XI intact bilaterally Cranial nerves: Yes Equal, round and reactive pupils present Cognition (Neuro): normal cognition Extrem General: Yes full ROM, Yes no pedal edema and Yes no calf tenderness Psych Mental Status: mental status grossly normal Affect: normal affect Thought process: Normal thought process present Course Reevaluation(s) Reevaluation #1: I Jammie Key PA-C have accepted care of the patient and signed out pending blood transfusion repeat H&H and likely discharge Repeat H&H improved, hemoglobin 7.9, hematocrit 25.4 Medications Administered Discontinued Medications Generic Name Dose Route Start Last Admin Trade Name Stan PRN Reason Stop Dose Admin Metronidazole 500 mg 09/15/24 15:49 09/15/24 16:19 Metronidazole 500 Mg Tablet PO 09/15/24 15:50 500 mg ONCE ONE Administration Medical Decision Making Medical Decision Making [facility] Narrative: Patient is a 28-year-old female with history of moderate persistent asthma, kidney stones, hepatic steatosis, hyperthyroidism, obesity presenting to the emergency department from [facility] office for evaluation of heavy vaginal bleeding. On exam patient is awake, A+Ox3, VS WNL, afebrile, normal neurological exam without focal deficits, physical exam findings as above. Given reported symptoms and physical exam findings, initial differential includes but is not limited to fibroids, polyps, endometritis, STI, neoplasm. Labs notable for no leukocytosis, acute blood loss anemia, negative HCG, neg troponin, normal BNP. U/S notable for sec, hypervascular endometrium measuring up to 22 mm suggesting hyperplasia, polyp, possibly neoplasia as well as 2.4 cm complex left ovarian cyst without evidence of torsion. Chest x-ray is without evidence of cardiomegaly or pulmonary edema. My interpretation is in agreement with the radiologist's interpretation. Case discussed with Dr. Funk who came to the ED to evaluate patient and placed a Mirena IUD. He recommends total of 2 units PRBCs, then repeat CBC and discharge home if stable. He will see patient for follow-up in the office next week. Patient tested positive for trichomonas, treated with metronidazole, advised to notify all sexual partners that they also require treatment, instructed patient to avoid intercourse for 7 days following completion of treatment. Strict return precautions discussed with patient at bedside. Patient signed out to JOSE Brian pending completion of PRBCs and repeat CBC. Differential Diagnosis Differential Diagnoses: The differential diagnosis associated with the presentation includes As per [facility] Admission/Observation Consideration of admission/observation: Escalation of care including admission/observation considered Patient would have been admitted to the hospital had their work up had any findings where hospital admission was appropriate and their clinical presentation warranted hospital admission. Consult Healthcare Provider Management of the patient was discussed with: Duplicate Maker (Dr. Funk) Lab Data [facility] Lab Attestation statement: I reviewed the patient's lab results. As per [facility] 09/15/24 23:04 09/15/24 12:57 Labs: Lab Results 09/15/24 09/15/24 09/15/24 Range/Units 12:56 12:57 14:34 WBC 6.5 (4.8-10.8) X10*3/uL RBC 2.91 L D (4.20-5.50) X10*6/uL Hgb 6.7 L* D (12.0-16.0) g/dl Hct 23.0 L D (37.0-47.0) % MCV 79.0 L (80.0-98.0) fL MCH 23.0 L (27.0-33.0) pg MCHC 29.1 L (31.0-35.0) g/dl RDW 17.3 H (11.0-16.0) % Plt Count 215 (160-400) X10*3/uL MPV 12.8 H (9.4-12.3) fL Immature Gran % (Auto) 0.6 H (0.0-0.4) % Neut % (Auto) 55.0 (45-73) % Lymph % (Auto) 34.0 (20-40) % [place] % (Auto) 5.9 (2-11) % Eos % (Auto) 3.9 (0-4) % Baso % (Auto) 0.6 (0-2) % Lymph # (Auto) 2.2 (1.2-4.9) X10*3/uL [place] # (Auto) 0.4 (0.1-1.2) X10*3/uL Eos # (Auto) 0.3 (0.0-0.4) X10*3/uL Baso # (Auto) 0.0 (0.0-0.2) X10*3/uL Abs Immat Gran (auto) 0.04 H (0.00-0.03) X10*3/uL Absolute Neuts (auto) 3.6 (2.0-8.3) x10*3/uL Absolute Nucleated RBC 0.000 (0.0-0.012) X10*3/uL Nucleated RBC % (auto) 0.0 (0.0-0.2) /100WBC PT 10.9 (10.9-12.4) SEC INR 1.0 (0.9-1.1) Sodium 141 (135-145) mmol/L Potassium 4.1 (3.3-5.1) mmol/L Chloride 113 H (96-108) mmol/L Carbon Dioxide 23 (22-29) mmol/L Anion Gap 9 L (12-20) BUN 10 (9-16) mg/dL Creatinine 0.71 (0.5-1.4) mg/dL Estim Creat Clear Calc 169.5 Estimated GFR > 60 Random Glucose 87 (60-115) mg/dL Calcium 9.2 (8.4-10.2) mg/dL Total Bilirubin 0.8 (0.0-1.0) mg/dL AST 30 (5-31) U/L ALT 27 (0-31) U/L Alkaline Phosphatase 62 (39-117) U/L Troponin I High Sens 2.7 (<3.5-17.0) ng/L B-Natriuretic Peptide 14 (<100) pg/mL Total Protein 6.9 (6.5-8.0) g/dL Albumin 4.1 (3.5-5.0) g/dL Beta HCG, Quant < 2 mIU/mL Urine Color Urine Appearance Urine pH (5.0-9.0) Ur Specific [place] (1.005-1.025) Urine Protein (Neg-Trace) mg/dL Urine Glucose (UA) (Negative) mg/dL Urine Ketones (Negative) mg/dL Urine Blood (Negative) Urine Nitrite (Negative) Ur Leukocyte Esterase (Negative) Urine RBC (0-2) /HPF Urine WBC (0-5) /HPF Ur Squamous Epith Cells (0-2) /HPF Urine Bacteria (None Seen) Hyaline Casts (0-2) /LPF Chlam trachomat DNA PCR NOT DETECTED (Not Detect.) N.gonorrhoeae DNA (PCR) NOT DETECTED (Not Detect.) T. vaginalis (PCR) DETECTED A (Not Detect) Bact vaginosis (PCR) NEGATIVE (Negative) C. krusei/glabrata (PCR) NOT DETECTED (Not Detect) Anna group (PCR) NOT DETECTED (Not Detect) Blood Type A Positive Antibody Screen NEGATIVE Crossmatch See Detail 09/15/24 09/15/24 Range/Units 18:18 23:04 WBC (4.8-10.8) X10*3/uL RBC (4.20-5.50) X10*6/uL Hgb 7.9 L (12.0-16.0) g/dl Hct 25.4 L (37.0-47.0) % MCV (80.0-98.0) fL MCH (27.0-33.0) pg MCHC (31.0-35.0) g/dl RDW (11.0-16.0) % Plt Count (160-400) X10*3/uL MPV (9.4-12.3) fL Immature Gran % (Auto) (0.0-0.4) % Neut % (Auto) (45-73) % Lymph % (Auto) (20-40) % [place] % (Auto) (2-11) % Eos % (Auto) (0-4) % Baso % (Auto) (0-2) % Lymph # (Auto) (1.2-4.9) X10*3/uL [place] # (Auto) (0.1-1.2) X10*3/uL Eos # (Auto) (0.0-0.4) X10*3/uL Baso # (Auto) (0.0-0.2) X10*3/uL Abs Immat Gran (auto) (0.00-0.03) X10*3/uL Absolute Neuts (auto) (2.0-8.3) x10*3/uL Absolute Nucleated RBC (0.0-0.012) X10*3/uL Nucleated RBC % (auto) (0.0-0.2) /100WBC PT (10.9-12.4) SEC INR (0.9-1.1) Sodium (135-145) mmol/L Potassium (3.3-5.1) mmol/L Chloride (96-108) mmol/L Carbon Dioxide (22-29) mmol/L Anion Gap (12-20) BUN (9-16) mg/dL Creatinine (0.5-1.4) mg/dL Estim Creat Clear Calc Estimated GFR Random Glucose (60-115) mg/dL Calcium (8.4-10.2) mg/dL Total Bilirubin (0.0-1.0) mg/dL AST (5-31) U/L ALT (0-31) U/L Alkaline Phosphatase (39-117) U/L Troponin I High Sens (<3.5-17.0) ng/L B-Natriuretic Peptide (<100) pg/mL Total Protein (6.5-8.0) g/dL Albumin (3.5-5.0) g/dL Beta HCG, Quant mIU/mL Urine Color Red A Urine Appearance Cloudy Urine pH 6.0 (5.0-9.0) Ur Specific [place] 1.020 (1.005-1.025) Urine Protein 30 (1+) H (Neg-Trace) mg/dL Urine Glucose (UA) Negative (Negative) mg/dL Urine Ketones Negative (Negative) mg/dL Urine Blood Large (3+) H (Negative) Urine Nitrite Negative (Negative) Ur Leukocyte Esterase Trace H (Negative) Urine RBC >20 H (0-2) /HPF Urine WBC 0-5 (0-5) /HPF Ur Squamous Epith Cells 0-2 (0-2) /HPF Urine Bacteria None Seen (None Seen) Hyaline Casts 0-2 (0-2) /LPF Chlam trachomat DNA PCR (Not Detect.) N.gonorrhoeae DNA (PCR) (Not Detect.) T. vaginalis (PCR) (Not Detect) Bact vaginosis (PCR) (Negative) C. krusei/glabrata (PCR) (Not Detect) Anna group (PCR) (Not Detect) Blood Type Antibody Screen Crossmatch Independent Interpretation I performed an independent interpretation of an: Plain X-Ray and Ultrasound Interpretation: U/S notable for sec, hypervascular endometrium measuring up to 22 mm suggesting hyperplasia, polyp, possibly neoplasia as well as 2.4 cm complex left ovarian cyst without evidence of torsion. Chest x-ray is without evidence of cardiomegaly or pulmonary edema. Radiology Impression Discussion of test interpretation with radiology: I have reviewed the radiologist's reading. Radiologist Impression: XR/XR chest 2V IMPRESSION: No acute airspace disease. US/US pelvic and transvaginal IMPRESSION: 1. Thickened, hypervascular endometrium measuring up to 22 mm. Findings suggest hyperplasia, polyp, or possibly neoplasia. 2. There is a 2.4 cm complex appearing left ovarian cyst, appearance favoring hemorrhagic cyst. 3. Normal right ovary. External Record Review External record reviewed: Inpatient record, Office record and Outpatient record Prescription Management I considered prescription management with: Antibiotic Critical Care Time Critical Care Time Critical Care Time: Yes Total Critical Care Time: 49 Attestation: I have personally provided critical care time exclusive of time spent on separately billable procedures. Time includes review of lab data, radiology results, discussion with consultants, and monitoring for potential decompensation. Intervention performed as documented. Discharge Plan Discharge Clinical Impression: Abnormal uterine bleeding (AUB), Trichomonas infection Patient Disposition: Home, Self-Care Instructions: Levonorgestrel (Into the uterus) (Liletta, Mirena, Dominique, Kyleena), Blood Transfusion Discharge Instructions, Abnormal (Dysfunctional) Uterine Bleeding (ED), Trichomoniasis (ED) Additional Instructions: You were evaluated in the emergency department today for vaginal bleeding. Your hemoglobin was low and you required a blood transfusion. You were evaluated by Dr. Funk and he placed a Mirena IUD to control the bleeding. His office will call you for follow up next week. You also tested positive for Trichomonas and are being treated with an antibiotic. Complete the full course as prescribed. Do not have intercourse for 7 days following completion of the antibiotics. Make sure that you notify all sexual partners that you tested positive for this infection as they should be treated as well. Return to the emergency department if you continue to bleed through more than 1 pad per hour, have dizziness, lightheadedness, fainting, chest pain, shortness of breath or any other new or concerning symptoms. Prescriptions: New metronidazole 500 mg tablet 500 mg PO BID 7 Days Qty: 13 0RF No Action ibuprofen 800 mg tablet 800 mg PO Q8H PRN (Reason: pain) Qty: 30 0RF oxycodone-acetaminophen [Percocet] 5-325 mg tablet 1 tab PO Q8H PRN (Reason: pain) 3 Days Qty: 7 0RF penicillin V potassium 500 mg tablet 500 mg PO BID 10 Days Qty: 20 0RF ondansetron 4 mg tablet,disintegrating 4 mg PO Q8H PRN (Reason: nausea and vomiting) Qty: 20 0RF kjzrxwkrme-icgqyleuvcpjo-zojr 50-325-40 mg tablet 1 tab PO Q6H PRN (Reason: haeadace) Qty: 20 0RF amoxicillin-pot clavulanate 875-125 mg tablet 1 tab PO BID Qty: 20 0RF tamsulosin 0.4 mg capsule 0.4 mg PO BEDTIME Qty: 14 0RF naproxen 500 mg tablet 500 mg PO BID Qty: 20 0RF ciprofloxacin HCl 500 mg tablet 500 mg PO BID Qty: 13 0RF oxycodone 5 mg tablet 5 mg PO Q6H PRN (Reason: pain) Qty: 10 0RF Rx Instructions: Partial Fill upon patient request. cefuroxime axetil 250 mg tablet 250 mg PO BID 7 Days Qty: 13 0RF epinephrine [EpiPen] 0.3 mg/0.3 mL auto-injector 0.3 mg IM Q10M PRN (Reason: anaphylaxis) Qty: 2 0RF Rx Instructions: for 2 doses Referrals: Sreedhar Funk MD [Physician, [facility] OFFICER] - 1 week Clinical Impression: Trichomonas infection; Abnormal uterine bleeding (AUB) Stand Alone Forms: Work/School Release Print Language: Bel[place]an
--- NOTE | 2024-09-15 12:28 | ECG_ITS ---
Test Reason : anemia Blood Pressure : */* mmHG Vent. Rate : 83 BPM Atrial Rate : 83 BPM P-R Int : 144 ms QRS Dur : 84 ms QT Int : 360 ms P-R-T Axes : 53 36 -18 degrees QTcB Int : 423 ms Normal sinus rhythm T wave abnormality, consider inferior ischemia Abnormal ECG When compared with ECG of 20-Apr-2024 23:13, Nonspecific T wave abnormality no longer evident in Lateral leads Referred By: Christina Acevedo Electronically Signed By: Neil Velazquez
[2024-09-15 13:03] LABS: MANUAL DIFF FLAG NO
--- NOTE | 2024-09-15 13:04 | PC.NURSE ---
IV placed, labs draw and sent including type and screen
[2024-09-15 13:05] LABS: Basophils Percent Auto 0.6 % (0-2); Eosinophils Absolute Auto 0.3 X10*3/uL (0.0-0.4); Eosinophils Percent Auto 3.9 % (0-4); Imm Gran Abs Auto 0.04 X10*3/uL (0.00-0.03); Imm Gran Pct Auto 0.6 % (0.0-0.4); Lymphocytes Absolute Auto 2.2 X10*3/uL (1.2-4.9); Mean Corpuscular HGB Conc 29.1 g/dl (31.0-35.0); Mean Platelet Volume 12.8 fL (9.4-12.3); Monocytes Absolute Auto 0.4 X10*3/uL (0.1-1.2); Monocytes Percent Auto 5.9 % (2-11); Neutrophils Absolute Auto 3.6 x10*3/uL (2.0-8.3); Platelet Count 215 X10*3/uL (160-400); Red Blood Count 2.91 X10*6/uL (4.20-5.50); Red Cell Distribution Width 17.3 % (11.0-16.0); White Blood Count 6.5 X10*3/uL (4.8-10.8)
[2024-09-15 13:07] LABS: Hemoglobin 6.7 g/dl (12.0-16.0)
[2024-09-15 13:19] LABS: Prothrombin Time 10.9 SEC (10.9-12.4)
[2024-09-15 13:28] LABS: B Type Natriuretic Peptide 14 pg/mL (<100)
[2024-09-15 13:31] LABS: Alanine Aminotransferase 27 U/L (0-31); Albumin Level 4.1 g/dL (3.5-5.0); Alkaline Phosphatase 62 U/L (39-117); Anion Gap 9 (12-20); Aspartate Amino Transferase 30 U/L (5-31); Bilirubin Total 0.8 mg/dL (0.0-1.0); Blood Urea Nitrogen 10 mg/dL (9-16); Calcium 9.2 mg/dL (8.4-10.2); Carbon Dioxide 23 mmol/L (22-29); Chloride 113 mmol/L (96-108); Creatinine Clr Calc Pharmacy 169.5; Estimated Glomerular Filt Rate > 60; Glucose Random 87 mg/dL (60-115); Potassium 4.1 mmol/L (3.3-5.1); Sodium 141 mmol/L (135-145); Total Protein 6.9 g/dL (6.5-8.0)
[2024-09-15 13:33] LABS: HCG Quantitative < 2 mIU/mL; Troponin-I High Sensitivity 2.7 ng/L (<3.5-17.0)
--- NOTE | 2024-09-15 14:44 | PM.GYNCN ---
MANUFACTURING PROCESS TECHNICIAN - CN: HPI Data of Consult Consult date: 09/15/24 Primary Care Provider: [facility] Consult Narrative Narrative: I was consulted on Morenita Abbott who is a 28 year old female presented to emergency room with 13 day history of heavy vaginal bleeding. The patient gives similar history of heavy vaginal bleeding few months ago was seen in emergency room at [facility] with normal ultrasound. In the emergency room the following workup was done: H&H 6.7/ HCG less than 2 GC/CT with BV panel and Trichomonas sent, results pending Ultrasound showed the following: Uterus: The uterus is anteverted , anteflexed, and measures 9.2 x 4.3 x 5.7 cm. Normal-appearing cervix. The double wall endometrial thickness is 22 mm. It is hypervascular. The uterus is smooth in contour and has normal myometrial echogenicity. No visible fibroid. Adnexa: Both ovaries are visualized. There is normal color flow to the adnexa. There is no ovarian torsion. There is no pelvic ascites or fluid collection. Right ovary measures 3.4 x 2.0 x 3.6 cm. Volume = 12.8 mL. Normal sonographic appearance. Left ovary measures 3.9 x 1.8 x 2.0 cm. Volume = 7.4 mL. Complex, likely hemorrhagic 2.4 cm follicular cyst. US/US pelvic and transvaginal IMPRESSION: 1. Thickened, hypervascular endometrium measuring up to 22 mm. Findings suggest hyperplasia, polyp, or possibly neoplasia. 2. There is a 2.4 cm complex appearing left ovarian cyst, appearance favoring hemorrhagic cyst. 3. Normal right ovary. Last co testing according to patient was abnormal a year ago followed by colpo biopsy according to the patient the results was negative, no records available cc:: CC: OB [facility] Past Medical History Medical History Preeclampsia Hypothyroid HPV in female Ovarian cyst Social History Social History Alcohol intake: current Alcohol intake frequency: does not drink Substance Use Type: Marijuana Advance Directives: No Advance Directives Information Provided: Yes Meds Allergies Allergy/AdvReac Type Severity Reaction Status Date / Time No Known Allergies (No Known Allergy Verified 09/15/24 13:08 Allergies*) MANUFACTURING PROCESS TECHNICIAN Physical Exam Vitals Vital signs: Temp Pulse Resp BP Pulse Ox O2 Del Method 98.1 F 79 18 134/75 99 Room Air 09/15/24 13:07 09/15/24 14:37 09/15/24 14:37 09/15/24 14:37 09/15/24 14:37 09/15/24 14:37 BMI result Body Mass Index 33.9 Female Genitalia (Pelvic) Bladder/Urethra: Normal meatus Vulva: No lesions Vagina: Nontender Cervix: Grossly normal Uterus: Normal size Adnexa/Parametria: Adnexal Tenderness: None, Adnexal Mass: None, Parametrial Tenderness: None and Parametrial Mass: None Additional Comments: No evidence of active vaginal bleed MANUFACTURING PROCESS TECHNICIAN - Results Labs 09/15/24 12:57 09/15/24 12:57 Labs: Short CBC 09/15/24 Range/Units 12:57 WBC 6.5 (4.8-10.8) X10*3/uL Hgb 6.7 L* D (12.0-16.0) g/dl Hct 23.0 L D (37.0-47.0) % Plt Count 215 (160-400) X10*3/uL BMP 09/15/24 12:57 Sodium 141 Potassium 4.1 Chloride 113 H Carbon Dioxide 23 BUN 10 Creatinine 0.71 Calcium 9.2 Liver Function 09/15/24 Range/Units 12:57 Total Bilirubin 0.8 (0.0-1.0) mg/dL AST 30 (5-31) U/L ALT 27 (0-31) U/L Alkaline Phosphatase 62 (39-117) U/L Albumin 4.1 (3.5-5.0) g/dL Imaging US - abdomen: Radiologist's impression: ITS Impressions Chest X-Ray 09/15/24 11:38 IMPRESSION: No acute airspace disease. Electronically signed by: Jovi Moore MD 09/15/2024 12:44 PM EDT Pelvic/Transvag US 09/15/24 13:14 IMPRESSION: 1. Thickened, hypervascular endometrium measuring up to 22 mm. Findings suggest hyperplasia, polyp, or possibly neoplasia. 2. There is a 2.4 cm complex appearing left ovarian cyst, appearance favoring hemorrhagic cyst. 3. Normal right ovary. Electronically signed by: Fred Ortez MD 09/15/2024 01:52 PM EDT Assessment and Plan (1) Abnormal uterine bleeding (AUB): Status: Acute GC and chlamydia taken. Discussed with the patient the different causes of abnormal bleeding including thyroid disorders, uterine and ovarian pathology, endometrial hyperplasia, carcinoma and other potential causes. Discussed with the patient the work up including CBC (to r/o anemia), TSH, pelvic Ultrasound, endometrial biopsy to r/o endometrial pathology. EMB done, see procedure Discussed with the patient the results of the work up done and options of treatment including Lysteda, progesterone treatment your IM, control pills, Mirena IUD. All pros, cons, risks and benefits if each option was discussed with the patient and the patient decided to go ahead with Mirena IUD so a more detailed discussion about it was conducted including mechanism of action, risks (uterine perforation, infection, injury to bladder, bowel, displacement, and others) benefits (hypo menorrhea, amenorrhea, ...). GC/CT were taken and Mirena IUD insertion done, see procedure . All questions answered, the patient verbalized understanding All questions answered and the patient verbalized understanding. Instructed the patient to call or come to emergency room in case of persistence of heavy vaginal bleeding and to schedule a follow-up appointment in 2 weeks. (2) Complex ovarian cyst: Status: Acute Discussed with the patient the complex ovarian cyst by ultrasound. Discussed with the patient the Ultrasound findings, the main limitation of transvaginal ultrasonography alone as a diagnostic tool to distinguish benign from malignant masses relates to its lack of specificity and low positive predictive value for cancer. The differential diagnosis discussed with the patient includes the following but not limited to: benign and malignant gynecological and non-gynecological causes. Laboratory evaluation include UPT and GC/CT , serum tumor marker CA 125 . Will repeat ultrasound in 3 months. Instructions given the patient to schedule a 3 months follow-up ultrasound appointment. All questions were answered & the patient verbalized understanding and agreed with the plan. (3) Anemia: Status: Acute Recommended transfusion with 2 units of packed RBC, observation in the emergency room I will defer the transfusion management of hemodynamic stability to the ER team (4) History of abnormal cervical Pap smear: Status: Acute Co testing will repeat in the office within 1-2 weeks Plan Endometrial Biopsy Details: The patient was counseled regarding the indication and benefits of endometrial sampling to rule out endometrial pathology including not limited to endometrial hyperplasia or endometrial cancer and others; The alternatives (Either do nothing vs. hysteroscopy D&C) & the risks were discussed with the patient including but not limited: pain, uterine perforation, bleeding, infection, possible injury to bladder, bowel, ureter, possible need for blood transfusion with all its possible risks. The patient verbalized understanding all questions answered and signed consent. HCG quantitative done in the emergency room was negative The patient was placed into the dorsal lithotomy position; a speculum was inserted in the vagina. Using aseptic technique for the procedure, the cervix was cleansed with Betadine. The anterior lip of the cervix was grasped with a single tooth tenaculum. The uterus was sounded to 7 cm with a 4 mm Pipelle was used. Tissues samples were obtained and placed in formalin, in a patient labeled container and sent to the pathology department. At the end of the procedure, there was minimal bleeding noted The patient tolerated the procedure well and was discharged in good condition with the following instructions: Nothing in the vagina until the bleeding stops. No sex until the bleeding stops, to call if any of the following occurs: fever (>100.4), flu-like symptoms, abdominal pain, heavy bleeding, four smelling vaginal discharge. The patient was instructed to schedule a Follow up appointment in 2 weeks to discuss pathology results of the biopsy and treatment options. This note was generated with a voice recognition program. Some errors may have been overlooked during the review of this note. Sometimes these errors may affect the content or meaning of a given sentence. [id number] Biopsy IUD Insert/Removal Details Details: The patient is requesting Mirena IUD insertion HCG quantitative done in the emergency room was negative; All the contraindications were excluded. The following possible complications were discussed with the patient: Intrauterine , Ectopic , Sepsis, Pelvic Infection, Irregular Bleeding and Amenorrhea, Perforation, Expulsion, Ovarian Cysts, Breast Cancer, The following adverse effects were discussed with the patient: alteration of menstrual bleeding pattern, including: unscheduled uterine bleeding decreased uterine bleeding increased scheduled uterine bleeding female genital tract bleeding ,amenorrhea , genital discharge , vulvovaginitis , breast pain , benign ovarian cyst and associated complications , dysmenorrhea , Gastrointestinal disorders abdominal/pelvic pain, headache/migraine , back pain , acne , depression Alternative options were discussed with the patient including but not limited: control pills, patch, NuvaRing, Depo-medroxyprogesterone acetate, Nexplanon, copper IUD, sterilization, vasectomy, others The procedure was explained in detail to patient , at the end patient signed the informed consent obtained. A no touch technique was used throughout the procedure. A speculum was placed into vagina and cervix was cleaned with betadine). A tenaculum was placed. A plastic sound was advanced through the external and internal os until it reached the fundus of the uterus, the depth was 8 cm. The sound was then withdrawn. The IUD was loaded in a sterile manner and advanced into position. The string was visualized and cut to 3 cm. Tenaculum site hemostatic. All instruments removed from vagina. Patient tolerated the procedure well. NO complications were noted. Patient was instructed to call for fever over 100.4, significant pain unrelieved by Motrin, IUD expulsion, heavy bleeding, or abnormal discharge. In addition, the following clinical considerations were discussed with the patient to call for removal: A stroke or heart attack ,Very severe or migraine headaches ,Unexplained fever ,Yellowing of the skin or whites of the eyes, as these may be signs of serious liver problems , or suspected , Pelvic pain or pain during sex ,HIV positive seroconversion in herself or her partner , Possible exposure to sexually transmitted infections Unusual vaginal discharge or genital sores , severe vaginal bleeding or bleeding that lasts a long time, or if she misses a menstrual period, Inability to feel Mirena's threads Counseled the patient that the IUD does not protect against STI's, recommended use of condoms for the first 7 days post insertion and explained to the patient that condoms are recommended for patients at risk for sexually transmitted infections. Informed the patient that Mirena IUD is FDA approved for 8 years for contraception for 5 years for the treatment of heavy menses Instructed the patient to schedule a Follow up appointment in 4 to 6 weeks following insertion. This note was generated with a voice recognition program. Some errors may have been overlooked during the review of this note. Sometimes these errors may affect the content or meaning of a given sentence. Procedure code (CPT) selection complete
[2024-09-15 15:43] LABS: Bacterial Vaginosis PCR NEGATIVE (Negative); Candida Group PCR NOT DETECTED (Not Detect); Candida glab krusei PCR NOT DETECTED (Not Detect); Trichomonas vaginalis PCR DETECTED (Not Detect)
--- OUTSIDE RECORDS SUMMARY | 2024-09-15 15:44 | XMS_ITS | Encounter Summary ---
Author Organization [employer] Address [address] [place] [address] Care Team Providers Care Drying Can Worker Name Role Phone Iva Howard MD Primary Care Provider + Encounter Details Date Type Department Care Team ([facility] st Contact Info) Description 03/04/2023 Orders Only [facility] [address] [place], [place] [phone] Nichole Ralph, RN [address] [place] [address] Social History Tobacco Use Types Packs/Day Years Used Date Smoking Tobacco: Never Passive Smoke Exposure: Never Smokeless Tobacco: Never Alcohol Use Standard Drinks/Week Comments Yes 2 (1 standard drink = 0.6 oz pur e alcohol) Housing Stability Answer Date Recorded What is your housing situation today? I have lizabethlolly vargas 02/26/[address] you [...] t he electric, gas, oil or water [employer] threatened to shut off services in your [...] Care Team (Late st Contact Info) Description 11/15/2024 2:30 PM EDT Office Visit [facility] [address] [place] [address] Iva Howard MD [address] [place] [address] documented as of this encounter Procedures Procedure Name Priority Date/Time Associated Diagnosis Comments PAP SMEAR Routine 01/23/2021 12:00 AM EDT documented in this encounter Results * Pap Smear (01/23/2021 12:00 AM EDT) Swab us Historical Provider LAB CYTOLOGY ORDERABLES F inal Result [facility] [address] [place] [address] documented in this encounter Visit Diagnoses Not on filedocumented in this encounter Care Teams Drying Can Worker Relationship Specialty Start Date End Date Iva Howard MD [address] [place] [id number] PCP - General Family Medicine 12/23/17 Morenita Vargas Teacher [employer] 03/06/23 06/05/23 documented as of this encounter
[2024-09-15 16:16] LABS: CT PCR NOT DETECTED (Not Detect.); NG PCR NOT DETECTED (Not Detect.)
[2024-09-15] MEDS: metroNIDAZOLE 500 MG TABLET PO (16:19)
--- NOTE | 2024-09-15 17:02 | MHC.EDTECH ---
Late entry- T/w given a labeled endometrial biopsy specimen from Dr. Funk around 1520. T/w and [facility] reached out to lab on behalf of specimen. Dr Funk stated he would put in the order for the endometrial biopsy, but had not at this point. The lab stated the specimen could be walked down and they could hold onto it and attach it to the order once Dr. Funk put it in the system. T/w walked down specimen and handed it off to lab staff at 1545, confirming again that they could hold onto it until order is in system.
[2024-09-15 18:38] LABS: Appearance Urine Cloudy; Color Urine Red; Glucose Urine UA Negative (Negative); Leukocyte Esterase Urine Trace (Negative); Nitrite Urine Negative (Negative); UMIC TRIGGER UACC YES; Urine Blood Large (3+) (Negative); Urine Ketones Negative (Negative); Urine Protein 30 (1+) mg/dL (Neg-Trace)
[2024-09-15 18:39] LABS: Bacteria Urine None Seen (None Seen); Hyaline Casts Urine 0-2 /LPF (0-2); RBC Urine >20 /HPF (0-2); Squamous Epithelial Cell Urine 0-2 /HPF (0-2); WBC Urine 0-5 /HPF (0-5)
[2024-09-15 23:09] LABS: Hematocrit 25.4 % (37.0-47.0); Hemoglobin 7.9 g/dl (12.0-16.0)
--- NOTE | 2024-09-15 23:09 | PC.NURSE ---
rbc transfusion infused, no reactions noted. lung sounds cta. repeat h&h obtained. pending d/c.
== END 2024-09-15 23:58 | disposition home or self-care (01) ==
PROVIDERS: Physician Assistant Medical; Registered Nurse Emergency; Emergency Provider Emergency Medicine
DX: N93.9 Abnormal uterine and vaginal bleeding, unspecified (principal); A59.01 Trichomonal vulvovaginitis; N83.292 Other ovarian cyst, left side; D64.9 Anemia, unspecified; R06.00 Dyspnea, unspecified; Z87.42 Personal history of other diseases of the female genital tract
CPT/HCPCS: 36415; 36430; 58100; 71046; 76830; 76856; 80053; 81001; 81515; 83880; 84484; 84702; 85014; 85018; 85025; 85610; 86850; 86900; 86901; 86923; 87491; 87591; 88305; 93005; 99285; J7298; P9016

== ENCOUNTER → 2024-09-15 12:28 | Outpatient (BNV) | payer MEDICAID, SELFPAY | PROVIDERS: Emergency Provider Emergency Medicine; Visit Provider Radiology Diagnostic Radiology | DX: N83.292 Other ovarian cyst, left side (principal); N83.291 Other ovarian cyst, right side; N85.00 Endometrial hyperplasia, unspecified; R06.00 Dyspnea, unspecified | CPT/HCPCS: 71046; 76830; 76856 ==

== ENCOUNTER → 2024-09-15 12:28 | Outpatient (BNV) | payer MEDICAID, SELFPAY | PROVIDERS: Emergency Provider Emergency Medicine; Visit Provider Internal Medicine Cardiovascular Disease | DX: R94.31 Abnormal electrocardiogram [ECG] [EKG] (principal); D64.9 Anemia, unspecified | CPT/HCPCS: 93010 ==

== ENCOUNTER → 2024-09-15 13:39 | Outpatient (BNV) | payer MEDICAID, SELFPAY | PROVIDERS: Emergency Provider Emergency Medicine; Visit Provider Obstetrics & Gynecology | DX: N93.9 Abnormal uterine and vaginal bleeding, unspecified (principal); N83.292 Other ovarian cyst, left side; D64.9 Anemia, unspecified; Z30.430 Encounter for insertion of intrauterine contraceptive device | CPT/HCPCS: 58100; 58300; 99283 ==

== ENCOUNTER 2024-09-22 13:00 | Outpatient (REF) | payer MEDICAID, SELFPAY ==
--- NOTE | ~2024-09-22 | US_ITS ---
EXAMINATION: US PELVIS CLINICAL INFORMATION: Abnormal bleeding, IUD placed COMPARISON: 09/15/2024. TECHNIQUE: Ultrasound of the pelvis is performed using both transabdominal and transvaginal transducers along with Doppler. Transvaginal imaging is performed due to inadequate visualization transabdominally. FINDINGS: Uterus: The uterus is anteverted, anteflexed and measures 9.5 x 5.3 x 5.5 cm. Normal-appearing cervix. The double wall endometrial thickness is 22 mm. It is once again hypervascular and heterogeneous in appearance. An IUD is present, malpositioned with arms at the right side of the uterus, unable to ascertain if perforated into myometrium. The uterus is smooth in contour and has normal myometrial echogenicity. No visible fibroid. Adnexa: Both ovaries are visualized. There is normal color flow to the adnexa. There is no ovarian torsion. There is no pelvic ascites or fluid collection. Right ovary measures 2.7 x 2.4 x 2.7 cm. Volume = 9.2 mL. There is a 2.0 cm follicular cyst with small daughter cyst present. Left ovary measures 3.6 x 2.1 x 2.1 cm. Volume = 8.0 mL. Previously seen complex cyst appears mildly crenated/collapsing, measuring 2.4 x 1.2 x 1.0 cm (previously 2.4 x 1.1 x 1.9 cm). There is also a peripheral daughter cyst. US/US pelvic and transvaginal IMPRESSION: 1. Redemonstration of thickened, heterogeneous, hypervascular endometrium measuring 22 mm. 2. IUD is malpositioned, with the body in the right aspect of the uterus. Cannot ascertain if the arms have perforated into the myometrium. 3. Slightly smaller 2.4 cm complex left ovarian cyst with a small daughter cyst. 4. 2.0 cm follicular cyst with small daughter cyst in the right ovary. Electronically signed by: Fred Ortez MD 09/22/2024 02:55 PM EDT
[2024-09-22 14:31] LABS: Hematocrit 27.9 % (37.0-47.0); Hemoglobin 8.5 g/dl (12.0-16.0); Mean Corpuscular HGB Conc 30.5 g/dl (31.0-35.0); Mean Corpuscular Volume 78.8 fL (80.0-98.0); Platelet Count 184 X10*3/uL (160-400); Red Blood Count 3.54 X10*6/uL (4.20-5.50); Red Cell Distribution Width 16.7 % (11.0-16.0); White Blood Count 7.8 X10*3/uL (4.8-10.8)
== END 2024-09-22 13:01 | disposition home or self-care (01) ==
LOC: HO.US 13:00
PROVIDERS: Obstetrics & Gynecology; PCP Internal Medicine; Visit Provider Advanced Practice Midwife
DX: T83.32XA Displacement of intrauterine contraceptive device, initial encounter (principal); N93.9 Abnormal uterine and vaginal bleeding, unspecified; N83.299 Other ovarian cyst, unspecified side; A59.9 Trichomoniasis, unspecified; Z87.42 Personal history of other diseases of the female genital tract
CPT/HCPCS: 36415; 58301; 76830; 76856; 81025; 85027; 99212

== ENCOUNTER → 2024-09-22 13:04 | Outpatient (BNV) | payer MEDICAID, SELFPAY | PROVIDERS: PCP Internal Medicine; Visit Provider Radiology Diagnostic Radiology | DX: N83.202 Unspecified ovarian cyst, left side (principal); N83.201 Unspecified ovarian cyst, right side | CPT/HCPCS: 76830; 76856 ==

== ENCOUNTER 2024-09-22 14:21 | Outpatient (AMB) | payer MEDICAID, SELFPAY ==
[2024-09-22 14:54] VITALS: BMI 36.9
--- NOTE | 2024-09-22 14:54 | MHC.OFFVIS ---
Vital Signs 09/22/24 14:54 Height 6 ft 1 in Weight 280 lb BMI 36.9 Intake Visit Reasons: vaginal bleeding/u/s results Supervisor Drying And Softening Required: No Information Interpreted: non-clinical & clinical Human Resources Trainee: Human Resources Trainee Present (Tonja ERAZO) Accompanied by: Self / Same As Patient Allergies No Known Allergies (No Known Allergies*) Allergy (Verified 09/22/24 15:01) HPI Comments Details: The patient called today complaining of continuous vaginal bleeding. The patient went to the emergency room a week ago with heavy vaginal bleeding with H&H= 6.7/23, hCG less than 2 Ultrasound showed can endometrium,left complex ovarian cyst The patient received 2 units of blood transfusion EMB was done pathology showed the following: Endometrium, biopsy: Benign disordered proliferative endometrium with ectatic stromal vessels with focal fibrin thrombi, and focal breakdown; no atypia or carcinoma. GC/CT was negative Trichomonas was positive, the patient was send a prescription for metronidazole, the patient has is in the middle of her antibiotic course, still have 4 days of treatment and her partner is being treated and the patient reports no unprotected intercourse since then. Mirena IUD was inserted in the emergency room The patient did well for few days till yesterday when she started having vaginal bleeding again but significantly last than previously experienced, the patient changed 1 pad the whole day, the patient called in and was asked to come in to be evaluated. Today's workup included the following: Pelvic ultrasound done today showed the followin. Redemonstration of thickened, heterogeneous, hypervascular endometrium measuring 22 mm. 2. IUD is malpositioned, with the body in the right aspect of the uterus. Cannot ascertain if the arms have perforated into the myometrium. 3. Slightly smaller 2.4 cm complex left ovarian cyst with a small daughter cyst. 4. 2.0 cm follicular cyst with small daughter cyst in the right ovary. H&H= 8.5/27.9 Last co testing according to patient was abnormal a year ago followed by colpo biopsy according to the patient the results was negative, no records available [facility] Medical History Preeclampsia Hypothyroid HPV in female Ovarian cyst Social History Unable to assess alcohol history related to: Unknown Alcohol intake: current Alcohol intake frequency: does not drink Substance Use Type: Marijuana Review of Systems Const All systems reviewed & are unremarkable except as noted in HPI and below Physical Exam Vital Signs: BMI result Body Mass Index 36.9 General: Yes no CVA tenderness External Female Exam: normal external appearance and normal appearance of the urethra Speculum Exam - Vagina: normal appearance of the vagina, normal palpation, no lesions, no masses and other (Minimal blood per vagina) Speculum Exam - Cervix: normal appearance of the cervix, normal palpation, no lesions, no masses, nontender and Other cervical findings present (IUD thread seen) Bimanual exam- vagina & uterus: normal bimanual exam, normal palpation, uterine size normal, normal palpation, uterine shape normal, No Cervical tenderness present and non-tender Bimanual Exam- Adnexa, other: normal adnexae Back/Spine/Pelvis Back: no CVA tenderness Office Procedures IUD Insert/Removal Details Details: Counseling/Consent: After discussing with the patient the risks of the procedure including bleeding, infection, scar tissue formation, , possible injury to blood vessels or nerves, chronic arm pain, blood transfusion, and irregular unpredictable bleeding Alternative options were discussed with the patient including but not limited: Do nothing. The patient signed the consent and agreed with the plan; all questions answered. Urine test was done in the office and was negative Preop dx: Malpositioned Mirena IUD by ultrasound for removal Op: Mirena IUD removal Post op dx: same EBL= 10 cc Procedure: The patient was put in the dorsal lithotomy position a speculum was inserted in the vagina the IUD thread identified. Using a Belinda clamp the thread was grasped and the IUD pulled out with no complications. The patient tolerated the procedure well and was advised to use a different method for contraception. Discharge instructions: Instructions were given to the pt to call if temp>100.4, abdominal pain heavy vaginal bleeding, n/v occur. The patient verbalized understanding and all questions answered. This note was generated with a voice recognition program. Some errors may have been overlooked during the review of this note. Sometimes these errors may affect the content or meaning of a given sentence. [id number] Insertion Procedure code (CPT) selection complete Results AMB Test Urine AMB Test Urine Negative Last Edit by Tonja Burch CMA on 09/22/24 14:55 Results Reviewed Results Reviewed: Laboratory Last Values Tst Clinic Negative 09/22/24 14:55 Assessment & Plan Assessment & Plan (1) Abnormal uterine bleeding (AUB): Code(s): N93.9 - Abnormal uterine and vaginal bleeding, unspecified Category: Medical Plan: UPT done in the office was negative. Iron sulfate 325 mg p.o. t.i.d... Discussed with the patient the results of the work up done and options of treatment including but not limited to BCP's, Progesterone, Mirena IUD, endometrial ablation and hysterectomy. All pros, cons, risks and benefits of each option were discussed with the patient and the patient decided to go ahead with definitive surgical treatment hysterectomy. Discussed with the patient the different types of hysterectomies including, vaginal, laparoscopic assisted vaginal, robotic assisted laparoscopic,& abdominal with BSO. All pros, cons, r/b of each approach were discussed the patient including evidence that morbidity is less and recovery is shorter with minimally invasive approaches to hysterectomy. Discussed with the patient the lack of availability of the robot HutGripi robot and/or minimally invasive hat braider specialist at [facility]. Will refer to [facility] minimally invasive highway worker surgery. Instructed the patient to call our office back in case a referral appointment is not scheduled, missed or canceled so that we will assist on rescheduling another appointment, the patient verbalized understanding agreed with the plan. Since IUD was removed because of malpositioned, will start the patient on Provera 10 mg p.o. q.d. daily. Instructions given the patient to call or go to emergency room in case of recurrence of her bleeding (2) Malpositioned IUD: Code(s): T83.32XA - Displacement of intrauterine contraceptive device, initial encounter Category: Medical Plan: Discussed with the patient the results the ultrasound showing malpositioned IUD, recommended IUD removal, IUD removed see procedure note (3) Complex ovarian cyst: Code(s): N83.299 - Other ovarian cyst, unspecified side Category: Medical Plan: Repeat Ultrasound scheduled in 3 months with a follow-up appointment. (4) History of abnormal cervical Pap smear: Code(s): Z87.42 - Personal history of other diseases of the female genital tract Category: Medical Plan: Since the patient is close to 29 years of age, Co testing repeated, will check the results and treat accordingly (5) Trichomonas infection: Comment: Treated Code(s): A59.9 - Trichomoniasis, unspecified Category: Medical Plan: Instructions given the patient to continue her course of antibiotic with her partner, not to have unprotected intercourse for a week, will repeat ALHAJI next visit Orders: Orders AMB HCG Urine Test Today Z32.02 - Encounter for test, result negative Pap Smear Today N93.9 - Abnormal uterine and vaginal bleeding, unspecified Medications: New medroxyprogesterone (Provera) start Provera 1 tablet daily 10 mg PO DAILY 90 tabs 0RF 10 days Discontinued penicillin V potassium Discontinued Reason: Patient Completed Course 500 mg PO BID 10 days 20 tabs 0RF oxycodone-acetaminophen 5-325 mg (Percocet) Discontinued Reason: Patient Completed Course 1 tab PO Q8H 3 days PRN 7 tabs 0RF pain amoxicillin-pot clavulanate 875-125 mg Discontinued Reason: Patient Completed Course 1 tab PO BID 20 tabs 0RF oxycodone Partial Fill upon patient request. Discontinued Reason: Patient Completed Course 5 mg PO Q6H PRN 10 tabs 0RF pain cefuroxime axetil Discontinued Reason: Patient Completed Course 250 mg PO BID 7 days 13 tabs 0RF ciprofloxacin HCl Discontinued Reason: Patient Completed Course 500 mg PO BID 13 tabs 0RF tamsulosin Discontinued Reason: Patient Completed Course 0.4 mg PO BEDTIME 14 caps 0RF metronidazole Discontinued Reason: Patient Completed Course 500 mg PO BID 7 days 13 tabs 0RF Coding Level of Care Code Est Pt Level 3 (57365) Diagnoses Abnormal uterine bleeding (AUB) N93.9 Malpositioned IUD T83.32XA Complex ovarian cyst N83.299 History of abnormal cervical Pap smear Z87.42 Trichomonas infection A59.9 CPT Codes Details - CPT: 90711-YKH Insertion ([id number])
--- OUTSIDE RECORDS SUMMARY | 2024-09-22 17:07 | XMS_ITS | Encounter Summary ---
Author Organization [employer] Address [address] [place] [address] Care Team Providers Care Reeling Operator Name Role Phone Iva Howard MD Primary Care Provider + Encounter Details Date Type Department Care Team ([facility] st Contact Info) Description 03/04/2023 Orders Only [facility] [address] [place], [place] [phone] Nichole Ralph, RN [address] [place] [address] Social History Tobacco Use Types Packs/Day Years [...] t he electric, gas, oil or water [employer] threatened to shut off services in your [...] Care Team (Late st Contact Info) Description 09/24/2024 12:00 PM EDT Office Visit [facility] [address] [place] [address] [phone] Iva Howard MD [address] [place] [address] [phone] 11/15/2024 2:30 PM EDT Office Visit [facility] [address] [place] [address] [phone] Iva Howard MD [address] [place] [phone] documented as of this encounter Procedures Procedure Name Priority Date/Time Associated Diagnosis Comments PAP SMEAR Routine 01/23/2021 12:00 AM EDT documented in this encounter Results * Pap Smear (01/23/2021 12:00 AM EDT) Swab us Historical Provider LAB CYTOLOGY ORDERABLES F inal Result [facility] [address] [place] [address] documented in this encounter Visit Diagnoses Not on filedocumented in this encounter Care Teams Reeling Operator Relationship Specialty Start Date End Date Iva Howard MD [address] [place] [address] [phone] PCP - General Family Medicine 12/23/17 Morenita Vargas Leasing Coordinator 03/06/23 06/05/23 documented as of this encounter
== END 2024-09-22 15:45 | disposition home or self-care (01) ==
LOC: HO.HWS 14:22
PROVIDERS: Visit Provider Obstetrics & Gynecology
DX: N93.9 Abnormal uterine and vaginal bleeding, unspecified (principal); N83.292 Other ovarian cyst, left side; T83.32XA Displacement of intrauterine contraceptive device, initial encounter; Z30.432 Encounter for removal of intrauterine contraceptive device; Z32.02 Encounter for pregnancy test, result negative
CPT/HCPCS: 58301; 99213

== ENCOUNTER 2024-09-22 15:29 | Outpatient (REF) | payer MEDICAID, SELFPAY ==
[2024-09-28 08:13] LABS: HPV Genotype 16 Negative (Negative); HPV Genotype 18 Negative (Negative); HPV High Risk Positive (Negative)
== END 2024-09-22 15:30 | disposition home or self-care (01) ==
LOC: HO.LNP 15:29
PROVIDERS: Visit Provider Obstetrics & Gynecology
DX: N93.9 Abnormal uterine and vaginal bleeding, unspecified (principal)
CPT/HCPCS: 87626; 88175

== ENCOUNTER 2024-09-28 14:00 | Outpatient (REF) | payer MEDICAID, SELFPAY ==
[2024-09-28 14:15] LABS: Hematocrit 27.9 % (37.0-47.0); Hemoglobin 8.3 g/dl (12.0-16.0); Imm Gran Abs Auto 0.05 X10*3/uL (0.00-0.03); Imm Gran Pct Auto 0.6 % (0.0-0.4); Lymphocytes Absolute Auto 2.7 X10*3/uL (1.2-4.9); MANUAL DIFF FLAG SCAN; Mean Corpuscular HGB Conc 29.7 g/dl (31.0-35.0); Mean Corpuscular Hemoglobin 23.0 pg (27.0-33.0); Mean Corpuscular Volume 77.3 fL (80.0-98.0); NRBC Abs Auto 0.000 X10*3/uL (0.0-0.012); NRBC Pct Auto 0.0 /100WBC (0.0-0.2); PLT CLUMP 1; Red Blood Count 3.61 X10*6/uL (4.20-5.50); SCAN SMEAR FLAG 1
[2024-09-28 14:35] LABS: White Blood Count 8.5 X10*3/uL (4.8-10.8)
--- OUTSIDE RECORDS SUMMARY | 2024-09-28 15:15 | XMS_ITS | Encounter Summary ---
Author Organization [employer] Address [address] [place] [address] Care Team Providers Care Glassware Defect Repairer Name Role Phone Iva Howard MD Primary Care Provider + Encounter Details Date Type Department Care Team ([facility] st Contact Info) Description 03/04/2023 Orders Only [facility] [address] [place], [place] [phone] Nichole Ralph, RN [address] [place] [address] Social History Tobacco Use Types Packs/Day Years [...] t he electric, gas, oil or water [employer] threatened to shut off services in your [...] Care Team (Late st Contact Info) Description 10/06/2024 11:00 AM EDT Office Visit [facility] [address] [place] [address] [phone] Iva Howard MD [address] [place] [address] [phone] 11/15/2024 2:30 PM EDT Office Visit [facility] [address] [place] [address] [phone] Iva Howard MD [address] [place] [phone] documented as of this encounter Procedures Procedure Name Priority Date/Time Associated Diagnosis Comments PAP SMEAR Routine 01/23/2021 12:00 AM EDT documented in this encounter Results * Pap Smear (01/23/2021 12:00 AM EDT) Swab us Historical Provider LAB CYTOLOGY ORDERABLES F inal Result [facility] [address] [place] [address] documented in this encounter Visit Diagnoses Not on filedocumented in this encounter Care Teams Glassware Defect Repairer Relationship Specialty Start Date End Date Iva Howard MD [address] [place] [phone] PCP - General Family Medicine 12/23/17 Morenita Vargas Water Filterer Helper 03/06/23 06/05/23 documented as of this encounter
== END 2024-09-28 14:01 | disposition home or self-care (01) ==
LOC: HO.LAB 14:00
PROVIDERS: PCP Internal Medicine; Visit Provider Obstetrics & Gynecology
DX: N93.9 Abnormal uterine and vaginal bleeding, unspecified (principal)
CPT/HCPCS: 36415; 81025; 85025; 99212

== ENCOUNTER 2024-09-28 14:19 | Outpatient (AMB) | payer MEDICAID, SELFPAY ==
--- NOTE | 2024-09-28 14:20 | A.OFFVIS_ITS ---
Vital Signs 09/28/24 14:28 Height 6 ft 1 in Weight 280 lb BMI 36.9 Intake Visit Reasons: vaginal bleeding and cramping Digital Media Designer Required: No Information Interpreted: non-clinical & clinical Wash Driller Helper: Wash Driller Helper Present (Tonja ERAZO) Accompanied by: Self / Same As Patient Allergies No Known Allergies (No Known Allergies*) Allergy (Verified 09/28/24 14:29) HPI Comments Details: Presenting complaining of vaginal bleeding and pelvic cramping. The patient went to the emergency room on 09/15 with heavy vaginal bleeding H&H was 6.7/23 receive 2 units of blood transfusion, EMB done and Mirena IUD inserted BV panel was positive and Trichomonas was positive, the patient was treated with metronidazole the patient did not finish the course yet At a follow-up on 09/22 the patient came in with pelvic cramping ultrasound showed malpositioned of the IUD, Mirena IUD taken out the patient was started on Provera 10 mg p.o. q.d. H&H was repeated on 09/22 went up to 8.5/27.9 H&H today is 8.3/27.9 PFSH Medical History Preeclampsia Hypothyroid HPV in female Ovarian cyst Social History Unable to assess alcohol history related to: Unknown Alcohol intake: current Alcohol intake frequency: does not drink Substance Use Type: Marijuana Review of Systems Const All systems reviewed & are unremarkable except as noted in HPI and below Physical Exam Vital Signs: BMI result Body Mass Index 36.9 General: Yes no CVA tenderness External Female Exam: normal external appearance and normal appearance of the urethra Speculum Exam - Vagina: normal appearance of the vagina, normal palpation, no lesions, no masses and other (Minimal blood per vagina no active bleeding) Speculum Exam - Cervix: normal appearance of the cervix, normal palpation, no lesions, no masses and nontender Bimanual exam- vagina & uterus: normal bimanual exam, normal palpation, uterine size normal, normal palpation, uterine shape normal, No Cervical tenderness present and non-tender Bimanual Exam- Adnexa, other: normal adnexae Back/Spine/Pelvis Back: no CVA tenderness Results AMB Test Urine AMB Test Urine Negative Last Edit by Tonja Burch CMA on 14:31 Assessment & Plan Assessment & Plan (1) Abnormal uterine bleeding (AUB): Code(s): N93.9 - Abnormal uterine and vaginal bleeding, unspecified Category: Medical Plan: Urine test done in the office was negative Iron sulfate 325 mg p.o. t.i.d. Discussed with the patient the finding on pelvic exam minimal blood per vagina no evidence of active bleeding and stable H&H since 09/22 Instructions given the patient to call or go to emergency room in case of persistent or worsening of her vaginal bleeding then will increase dose of medroxyprogesterone acetate In 1 week for test of cure and reassessment. All questions answered, the patient verbalized understanding Orders: Orders Complete Blood Count Auto Diff Today N93.9 - Abnormal uterine and vaginal bleeding, unspecified AMB HCG Urine Test Today Z32.02 - Encounter for test, result negative Coding Level of Care Code Est Pt Level 3 (68697) Diagnoses Abnormal uterine bleeding (AUB) N93.9
[2024-09-28 14:28] VITALS: BMI 36.9
== END 2024-09-28 14:41 | disposition home or self-care (01) ==
LOC: HO.HWS 14:19
PROVIDERS: PCP Internal Medicine; Visit Provider Obstetrics & Gynecology
DX: Z32.02 Encounter for pregnancy test, result negative (principal); N93.9 Abnormal uterine and vaginal bleeding, unspecified
CPT/HCPCS: 99213

== ENCOUNTER 2024-09-30 14:03 | Outpatient (AMB) | payer MEDICAID, SELFPAY ==
--- OUTSIDE RECORDS SUMMARY | 2024-09-30 14:07 | XMS_ITS | Encounter Summary ---
Author Organization [employer] Address [address] [place] [address] Care Team Providers Care Staff Auditor Name Role Phone Iva Howard MD Primary Care Provider + Encounter Details Date Type Department Care Team ([facility] st Contact Info) Description 03/04/2023 Orders Only [facility] [address] [place], [place] [phone] Nichole Ralph, RN [address] [place] [address] Social History Tobacco Use Types Packs/Day Years [...] t he electric, gas, oil or water [employer] threatened to shut off services in your [...] Description 10/06/2024 11:00 AM EDT Office Visit [facility] [address] [place] [address] [phone] Iva Howard MD [address] [place] [address] [phone] 11/15/2024 2:30 PM EDT Office Visit [facility] [address] [place] [address] [phone] Iva Howard MD [address] [place] [phone] documented as of this encounter Procedures Procedure Name Priority Date/Time Associated Diagnosis Comments PAP SMEAR Routine 01/23/2021 12:00 AM EDT documented in this encounter Results * Pap Smear (01/23/2021 12:00 AM EDT) Swab us Historical Provider LAB CYTOLOGY ORDERABLES F inal Result [facility] [address] [place] [address] documented in this encounter Visit Diagnoses Not on filedocumented in this encounter Care Teams Staff Auditor Relationship Specialty Start Date End Date Iva Howard MD [address] [place] [phone] PCP - General Family Medicine 12/23/17 Morenita Vargas Hammersmith Helper 03/06/23 06/05/23 documented as of this encounter
--- NOTE | 2024-09-30 14:14 | MHC.OFFVIS ---
Vital Signs 09/30/24 14:16 Height 6 ft 1 in Weight 280 lb BMI 36.9 Intake Visit Reasons: cramping Chief Dog License Inspector Required: No Information Interpreted: non-clinical & clinical Cloth Stock Sorter: Cloth Stock Sorter Present (Tonja ERAZO) Accompanied by: Spouse Allergies No Known Allergies (No Known Allergies*) Allergy (Verified 09/30/24 14:17) HPI Comments Details: The patient is presenting complaining of bilateral flank pain. No nausea or vomiting. No pelvic pain and bleeding has almost completely resolved Dr. Saravia 10/20/24 at 4 pm at the [facility] ,patient aware [facility] Medical History Preeclampsia Hypothyroid HPV in female Ovarian cyst Social History Unable to assess alcohol history related to: Unknown Alcohol intake: current Alcohol intake frequency: does not drink Substance Use Type: Marijuana Review of Systems Const All systems reviewed & are unremarkable except as noted in HPI and below Physical Exam Vital Signs: BMI result Body Mass Index 36.9 GI Palpation (GI): Soft to palpation and nontender Percussion: No bilateral flank dullness General: Yes no CVA tenderness External Female Exam: normal external appearance and normal appearance of the urethra Speculum Exam - Vagina: normal appearance of the vagina, normal palpation, no lesions and no masses Speculum Exam - Cervix: normal appearance of the cervix, normal palpation, no lesions, no masses and nontender Bimanual exam- vagina & uterus: normal bimanual exam, normal palpation, uterine size normal, normal palpation, uterine shape normal, No Cervical tenderness present and non-tender Bimanual Exam- Adnexa, other: normal adnexae Back/Spine/Pelvis Back: no CVA tenderness Assessment & Plan Assessment & Plan (1) Abnormal uterine bleeding (AUB): Comment: Resolved Code(s): N93.9 - Abnormal uterine and vaginal bleeding, unspecified Category: Medical Plan: Discussed with the patient the finding on pelvic exam, no cervical motion tenderness uterine or adnexal tenderness therefore no evidence of PID, minimal vaginal bleeding, AUB has resolved, recommended the patient to continue Provera 10 mg p.o. q.d. and follow-up in a week and to call in case of recurrence of vaginal bleeding. (2) Bilateral flank pain: Code(s): R10.9 - Unspecified abdominal pain Category: Medical Plan: Discussed with the patient differential diagnosis with bilateral flank pain, kidney stones, kidney infections or others, recommended the patient to go to emergency room to evaluate. All questions answered, the patient verbalized understanding Coding Level of Care Code Est Pt Level 3 (85497) Diagnoses Abnormal uterine bleeding (AUB) N93.9 Bilateral flank pain R10.9
[2024-09-30 14:16] VITALS: BMI 36.9
== END 2024-09-30 14:29 | disposition home or self-care (01) ==
LOC: HO.HWS 14:04
PROVIDERS: PCP Internal Medicine; Visit Provider Obstetrics & Gynecology
DX: N93.9 Abnormal uterine and vaginal bleeding, unspecified (principal); R10.9 Unspecified abdominal pain
CPT/HCPCS: 99213

== ENCOUNTER → 2024-09-30 14:03 | Outpatient (BNVA) | payer MEDICAID, SELFPAY | PROVIDERS: PCP Internal Medicine; Visit Provider Obstetrics & Gynecology | DX: N93.9 Abnormal uterine and vaginal bleeding, unspecified (principal); R10.9 Unspecified abdominal pain | CPT/HCPCS: 99212 ==

== ENCOUNTER 2024-10-06 13:36 | Outpatient (AMB) | payer MEDICAID, SELFPAY ==
--- NOTE | 2024-10-06 13:53 | A.OFFVIS_ITS ---
Vital Signs 10/06/24 13:59 Height 6 ft 1 in Weight 280 lb BMI 36.9 Intake Visit Reasons: Cotest/iud check/alhaji/colpo Matrix Inspector Required: No Information Interpreted: non-clinical & clinical Voip Technician: Voip Technician Present (Tonja ERAZO) Accompanied by: Self / Same As Patient Allergies No Known Allergies (No Known Allergies*) Allergy (Verified 10/06/24 14:03) HPI Comments Details: Presenting for follow-up regarding vaginal bleeding has been on Provera 10 mg p.o. q.d. bleeding has improved the patient is still having persistent bleeding, on iron sulfate 325 mg p.o. t.i.d. in addition the patient is presenting for ALHAJI for Trichomonas vaginitis, the patient took metronidazole, in 4 in her port and who got treated and no unprotected intercourse for a week Last co testing with ascus HPV positive [facility] Medical History Preeclampsia Hypothyroid HPV in female Ovarian cyst Social History Unable to assess alcohol history related to: Unknown Alcohol intake: current Alcohol intake frequency: does not drink Substance Use Type: Marijuana Review of Systems Const All systems reviewed & are unremarkable except as noted in HPI and below Physical Exam Vital Signs: BMI result Body Mass Index 36.9 General: Yes no CVA tenderness External Female Exam: normal external appearance and normal appearance of the urethra Speculum Exam - Vagina: normal appearance of the vagina, normal palpation, no lesions, no masses and other (Minimal blood per vagina No active bleeding) Speculum Exam - Cervix: normal appearance of the cervix, normal palpation, no lesions, no masses and nontender Bimanual exam- vagina & uterus: normal bimanual exam, normal palpation, uterine size normal, normal palpation, uterine shape normal, No Cervical tenderness present and non-tender Bimanual Exam- Adnexa, other: normal adnexae Back/Spine/Pelvis Back: no CVA tenderness Results AMB Test Urine AMB Test Urine Negative Last Edit by Tonja Burch CMA on 14:02 Results Reviewed Results Reviewed: Laboratory Last Values Tst Clinic Negative 10/06/24 14:02 Assessment & Plan Assessment & Plan (1) Abnormal uterine bleeding (AUB): Comment: Improved on Provera but persistent Code(s): N93.9 - Abnormal uterine and vaginal bleeding, unspecified Category: Medical Plan: Will increase Provera to 15 mg p.o. q.d. instructions given the patient to, stay on iron sulfate 325 mg p.o. q.d. CBC to be repeated today will check the results and treat accordingly. Instructions given the patient to call or go to the emergency room in case of heavy vaginal bleeding (2) Trichomonas infection: Comment: Treated Code(s): A59.9 - Trichomoniasis, unspecified Category: Medical Plan: BV panel collected for ALHAJI , will check the results and treat accordingly (3) ASCUS with positive high risk HPV cervical: Code(s): R87.610 - Atypical squamous cells of undetermined significance on cytologic smear of cervix (ASC-US); R87.810 - Cervical high risk human papillomavirus (HPV) DNA test positive Category: Medical Plan: Discussed with the patient the result of her abnormal pap, its significance, risk of progression, persistence, and regression. the false positive/negative rate of a Pap smear as a screening test in detecting cervical cancer and the indication for a diagnostic test -colposcopy, biopsy, endocervical curettage. The patient verbalized understanding and agreed with the plan, all questions answered. Will check ALHAJI if negative instructions given the patient to schedule an appointment for Colposcopy, biopsy /ECC in 1 week Orders: Orders Complete Blood Count no Diff Today N93.9 - Abnormal uterine and vaginal bleeding, unspecified AMB HCG Urine Test Today Z32.02 - Encounter for test, result negative Medications: New medroxyprogesterone (Provera) 15 mg (3 x 5 mg) PO DAILY 270 tabs 0RF 90 days Discontinued medroxyprogesterone (Provera) start Provera 1 tablet daily Discontinued Reason: Doctor's Order 10 mg PO DAILY 10 days 90 tabs 0RF Coding Level of Care Code Est Pt Level 3 (08905) Diagnoses Abnormal uterine bleeding (AUB) N93.9 Trichomonas infection A59.9 ASCUS with positive high risk HPV cervical R87.610; R87.810
[2024-10-06 13:59] VITALS: BMI 36.9
--- OUTSIDE RECORDS SUMMARY | 2024-10-06 14:26 | XMS_ITS | Encounter Summary ---
Author Organization [employer] Address [address] [facility] 7 [place] [address] Care Team Providers Care Scientific Programmer Analyst Name Role Phone Iva Howard MD Primary Care Provider + Encounter Details Date Type Department Care Team (Late st Contact Info) Description 03/04/2023 Orders Only [facility] MED[facility]INE [address], [place] [phone] Nichole Ralph RN [address] [place], [place] [phone] Social History Tobacco Use Types Packs/Day Years [...] Description 11/15/2024 2:30 PM EDT Office Visit [facility] MED[facility]INE [address] [place] [address] Iva Howard MD [address] [place] [address] documented as of this encounter Procedures Procedure Name Priority Date/Time Associated Diagnosis Comments PAP SMEAR Routine 01/23/2021 12:00 AM EDT documented in this encounter Results * Pap Smear (01/23/2021 12:00 AM EDT) Swab us Historical Provider LAB CYTOLOGY ORDERABLES F inal Result [facility] [address] [place] [address] documented in this encounter Visit Diagnoses Not on filedocumented in this encounter Care Teams Scientific Programmer Analyst Relationship Specialty Start Date End Date Iva Howard MD [address] [place] [id number] PCP - General Family Medicine 12/23/17 Morenita Vargas Certified Income Tax Preparer 03/06/23 06/05/23 documented as of this encounter
== END 2024-10-06 14:24 | disposition home or self-care (01) ==
LOC: HO.HWS 13:37
PROVIDERS: Visit Provider Obstetrics & Gynecology
DX: N93.9 Abnormal uterine and vaginal bleeding, unspecified (principal); A59.9 Trichomoniasis, unspecified; R87.610 Atypical squamous cells of undetermined significance on cytologic smear of cervix (ASC-US); R87.810 Cervical high risk human papillomavirus (HPV) DNA test positive; Z32.02 Encounter for pregnancy test, result negative
CPT/HCPCS: 99213

== ENCOUNTER 2024-10-06 14:22 | Outpatient (REF) | payer MEDICAID, SELFPAY ==
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
[2024-10-06 15:18] LABS: Hematocrit 27.9 % (37.0-47.0); Hemoglobin 8.1 g/dl (12.0-16.0); Mean Corpuscular HGB Conc 29.0 g/dl (31.0-35.0); Mean Corpuscular Hemoglobin 23.3 pg (27.0-33.0); Mean Corpuscular Volume 80.2 fL (80.0-98.0); NRBC Abs Auto 0.000 X10*3/uL (0.0-0.012); NRBC Pct Auto 0.0 /100WBC (0.0-0.2); Red Blood Count 3.48 X10*6/uL (4.20-5.50); White Blood Count 5.5 X10*3/uL (4.8-10.8)
[2024-10-06 15:34] LABS: Platelet Count 140 X10*3/uL (160-400)
[2024-10-06 20:37] LABS: Bacterial Vaginosis PCR NEGATIVE (Negative); Candida Group PCR NOT DETECTED (Not Detect); Candida glab krusei PCR NOT DETECTED (Not Detect); Trichomonas vaginalis PCR NOT DETECTED (Not Detect)
== END 2024-10-06 14:23 | disposition home or self-care (01) ==
LOC: HO.HHCX 14:22
PROVIDERS: PCP Internal Medicine; Referring Provider Internal Medicine; Visit Provider Obstetrics & Gynecology
DX: N93.9 Abnormal uterine and vaginal bleeding, unspecified (principal); S80.02XA Contusion of left knee, initial encounter; M65.4 Radial styloid tenosynovitis [de Quervain]; M67.813 Other specified disorders of tendon, right shoulder; S13.9XXA Sprain of joints and ligaments of unspecified parts of neck, initial encounter; Z20.2 Contact with and (suspected) exposure to infections with a predominantly sexual mode of transmission
CPT/HCPCS: 72040; 72110; 73030; 73110; 73564; 81025; 81515; 85027; 99212

== ENCOUNTER → 2024-10-06 15:12 | Outpatient (BNV) | payer MEDICAID, SELFPAY | PROVIDERS: PCP Internal Medicine; Referring Provider Internal Medicine; Visit Provider Radiology Diagnostic Radiology | DX: M54.50 Low back pain, unspecified (principal); M25.562 Pain in left knee; M54.2 Cervicalgia; M25.511 Pain in right shoulder; M25.531 Pain in right wrist | CPT/HCPCS: 72040; 72110; 73030; 73110; 73564 ==

== ENCOUNTER 2024-10-14 09:49 | Outpatient (AMB) | payer MEDICAID, SELFPAY ==
--- NOTE | 2024-10-14 10:00 | A.OFFVIS_ITS ---
Intake Visit Reasons: Colposcopy Nursery School Teacher: Nursery School Teacher Present ([place]) Accompanied by: Self / Same As Patient Allergies No Known Allergies (No Known Allergies*) Allergy (Verified 10/14/24 10:01) HPI Comments Details: Presenting for abnormal Pap smear showing ASCUS HPV positive, HPV 16/18 negative [facility] Medical History Preeclampsia Hypothyroid HPV in female Ovarian cyst Social History Unable to assess alcohol history related to: Unknown Alcohol intake: current Alcohol intake frequency: does not drink Substance Use Type: Marijuana Review of Systems Const All systems reviewed & are unremarkable except as noted in HPI and below Reports as per HPI and Reports no additional complaints GI Reports no additional complaints Reports no additional complaints Office Procedures Colposcopy Colposcopy: Pre-Procedure Counseling: Before beginning the procedure, I conducted comprehensive counseling with the patient. We thoroughly discussed the procedure itself, including its details, alternatives, and all associated risks. This included but not limited to the following complications such as bleeding, infection, and injury to the vagina, bladder, and vessels, as well as the potential need for transfusion with all its associated risks. Subsequently, the patient sign the consent. Pap smear result: Ascus/HPV positive Urine test in office = Negative Procedure: During the procedure, the following steps were performed: A speculum was inserted, and acetic acid was applied. Colposcopy was conducted, allowing visualization of the transformation zone. Acetowhite lesions were identified at the 5+6+7+11+1 o'clock position. Cervical biopsies were obtained from the 5+6+7+11+1 o'clock position, followed by an endocervical curettage (ECC). Vaginoscopy of the upper vagina revealed no evidence of aceto-white lesions. Hemostasis was achieved using Monsel solution, and the patient tolerated the procedure well. Post-Procedure Instructions: The patient was advised to promptly contact the office or the after hours answering service or go to the emergency room if experiencing a temperature exceeding 100.4?F, abdominal pain, nausea/vomiting, or bleeding. Additionally, the patient was instructed to abstain from vaginal intercourse and bathtub use. The patient confirmed understanding of these instructions. Discharge Instructions: The patient was instructed to schedule a follow-up appointment in 2 weeks for further evaluation and management. Please note that this note was generated using a voice recognition program, and errors may have occurred during pouch maker. Procedure code (CPT) selection complete Results AMB Test Urine AMB Test Urine Negative Last Edit by Tonja Burch CMA on 10:03 Results Reviewed Results Reviewed: Laboratory Last Values Tst Clinic Negative 10/14/24 10:02 Assessment & Plan Assessment & Plan (1) ASCUS with positive high risk HPV cervical: Code(s): R87.610 - Atypical squamous cells of undetermined significance on cytologic smear of cervix (ASC-US); R87.810 - Cervical high risk human papillomavirus (HPV) DNA test positive Category: Medical Plan: Discussed with the patient the result of her abnormal pap, its significance, risk of progression, persistence, and regression. the false positive/negative rate of a Pap smear as a screening test in detecting cervical cancer and the indication for a diagnostic test -colposcopy, biopsy, endocervical curettage. The patient verbalized understanding and agreed with the plan, all questions answered. Colposcopy, biopsy /ECC done, see procedure note Orders: Orders AMB HCG Urine Test Today Z32.02 - Encounter for test, result negative AMB Colposcopy Today R87.610 - Atypical squamous cells of undetermined significance on cytologic smear of cervix (ASC-US), R87.810 - Cervical high risk human papillomavirus (HPV) DNA test positive Coding Level of Care Code Procedure Only Diagnoses ASCUS with positive high risk HPV cervical R87.610; R87.810
--- OUTSIDE RECORDS SUMMARY | 2024-10-14 10:11 | XMS_ITS | Encounter Summary ---
Author Organization [employer] Address [address] [facility] 7 [place] [address] Care Team Providers Care Fingerprinter Name Role Phone Iva Howard MD Primary Care Provider + Encounter Details Date Type Department Care Team (Late st Contact Info) Description 03/04/2023 Orders Only [facility] MEDICINE [address] [place], [place] [phone] Nichole Ralph RN [address] [place], [place] [phone] Social History Tobacco Use Types Packs/Day Years [...] Description 11/15/2024 2:30 PM EDT Office Visit [facility] [address] [place] [address] Iva Howard MD [address] [place] [address] documented as of this encounter Procedures Procedure Name Priority Date/Time Associated Diagnosis Comments PAP SMEAR Routine 01/23/2021 12:00 AM EDT documented in this encounter Results * Pap Smear (01/23/2021 12:00 AM EDT) Swab us Historical Provider LAB CYTOLOGY ORDERABLES F inal Result [facility] [address] [place] [address] documented in this encounter Visit Diagnoses Not on filedocumented in this encounter Care Teams Fingerprinter Relationship Specialty Start Date End Date Iva Howard MD [address] [place] [id number] PCP - General Family Medicine 12/23/17 Morenita Vargas Director Outpatient Services 03/06/23 06/05/23 documented as of this encounter
== END 2024-10-14 10:21 | disposition home or self-care (01) ==
LOC: HO.HWS 09:49
PROVIDERS: PCP Internal Medicine; Visit Provider Obstetrics & Gynecology
DX: R87.610 Atypical squamous cells of undetermined significance on cytologic smear of cervix (ASC-US) (principal); R87.810 Cervical high risk human papillomavirus (HPV) DNA test positive; Z32.02 Encounter for pregnancy test, result negative
CPT/HCPCS: 57454

== ENCOUNTER 2024-10-14 09:49 | Outpatient (REF) | payer MEDICAID, SELFPAY | END 2024-10-14 09:50 | disposition home or self-care (01) | LOC: HO.LNP 09:49 | PROVIDERS: PCP Internal Medicine; Visit Provider Obstetrics & Gynecology | DX: R87.610 Atypical squamous cells of undetermined significance on cytologic smear of cervix (ASC-US) (principal); R87.810 Cervical high risk human papillomavirus (HPV) DNA test positive; Z32.02 Encounter for pregnancy test, result negative | CPT/HCPCS: 57454; 81025; 88305 ==

== ENCOUNTER 2024-11-09 10:57 | Outpatient (AMB) | payer MEDICAID, SELFPAY ==
--- NOTE | 2024-11-09 10:58 | MHC.OFFVIS ---
Intake Visit Reasons: colpo results Allergies No Known Allergies (No Known Allergies*) Allergy (Verified 10/14/24 10:01) HPI Comments Details: The patient is scheduled a telehealth visit post colpo for follow-up. The patient is doing well with no complaints. The pathology showed the following: A. Endocervix, curettage: Fragments of benign endocervical glands; negative for squamous intraepithelial lesion. B. Cervix, 1 o'clock, biopsy: Benign endocervical mucosa with hemosiderin-laden macrophages; no squamous mucosa seen; negative for squamous intraepithelial lesion. C. Cervix, 5 o'clock, biopsy: Chronic cervicitis; negative for squamous intraepithelial lesion. D. Cervix, 6 o'clock, biopsy: Low grade squamous intraepithelial lesion (JEAN-PIERRE 1), very focal. E. Cervix, 7 o'clock, biopsy: Chronic cervicitis with reactive squamous epithelial changes; negative for squamous intraepithelial lesion. F. Cervix, 11 o'clock, biopsy: Acute and chronic cervicitis with reactive squamous epithelial changes; negative for squamous intraepithelial lesion. COMMENT: The atypical cells noted on the patient's recent Pap smear ([id number]; ASCUS; HPV+) correlate with the current biopsy material [facility] Medical History Preeclampsia Hypothyroid HPV in female Ovarian cyst Social History Unable to assess alcohol history related to: Unknown Alcohol intake: current Alcohol intake frequency: does not drink Substance Use Type: Marijuana Review of Systems Const All systems reviewed & are unremarkable except as noted in HPI and below Reports as per HPI and Reports no additional complaints GI Reports no additional complaints Reports no additional complaints Telehealth Telehealth Telehealth Platform: Telephone Location of provider rendering services: practice address Location of patient: address on file Patient Identification confirmed using: Name, : Yes Telehealth method: video Patient verbally consented to treatment: Yes Patient verbally consented to billing insurance company: Yes Patient informed of any privacy concerns related to visit: Yes Minutes spent on Phone/Video with Pt.: 4 Assessment & Plan Assessment & Plan (1) Dysplasia of cervix, low grade (JEAN-PIERRE 1): Code(s): N87.0 - Mild cervical dysplasia Category: Medical Plan: Discussed with the patient the pathology results of the colposcopy biopsies & endocervical curettage ( mild dysplasia-JEAN-PIERRE 1). Discussed with the patient the sensitivity specificity, positive and negative predictive value in detecting cervical cancer in addition discussed the regression, persistence and progression rates. Recommended co-testing in 12 months, if cytology and or HPV are abnormal will proceed was colposcopy biopsy and endocervical curettage, if lesions gets worse or stays persistent for 2 years will proceed with loop electric excision procedure. Instructions given to the patient to schedule a co test appointment in 1 year. All questions answered the patient verbalized understanding. I spent a total of 20 minutes reviewing the chart, talking to the patient via video and documenting in the medical record. Coding Level of Care Code Tele Est Pt Level 3 (32417) Diagnoses Dysplasia of cervix, low grade (JEAN-PIERRE 1) N87.0
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
== END 2024-11-09 11:16 | disposition home or self-care (01) ==
LOC: HO.HWS 10:57
PROVIDERS: PCP Internal Medicine; Visit Provider Obstetrics & Gynecology
DX: N87.0 Mild cervical dysplasia (principal)
CPT/HCPCS: 99213

== ENCOUNTER 2024-12-06 10:43 | Outpatient (REF) | payer MEDICAID, SELFPAY ==
--- NOTE | ~2024-12-06 | US_ITS ---
EXAMINATION: US PELVIS CLINICAL INFORMATION: N83.299 - Other ovarian cyst, unspecified side COMPARISON: None available. TECHNIQUE: Ultrasound of the pelvis is performed using both transabdominal and transvaginal transducers along with Doppler. Transvaginal imaging is performed due to inadequate visualization transabdominally. FINDINGS: Uterus: The uterus is anteverted and measures 9.3 x 5.0 x 6.2 cm. The double wall endometrial thickness is 19 mm. There is trace fluid in the endometrial canal and small cystic changes in the endometrial. The uterus is smooth in contour and has normal myometrial echogenicity. No visible fibroid. Adnexa: Both ovaries are visualized. There is normal color flow to the adnexa. There is no ovarian torsion. There is no pelvic ascites or fluid collection. Right ovary measures 5.2 x 3.5 x 2.9 cm. There is a cyst measuring 2.8 x 2.6 x 2.5 cm with low-level internal echogenicity that does not demonstrate flow on color Doppler. Left ovary measures 2.8 x 1.4 x 2.1 cm. US/US pelvic and transvaginal IMPRESSION: Persistent thickening of the endometrium raises question of endometrial hyperplasia or polyp, and carcinoma is not ruled out. 2.8 cm mildly complex right ovarian cyst that is likely hemorrhagic in nature Electronically signed by: Dinesh Matias MD 12/06/2024 11:56 AM EDT
--- OUTSIDE RECORDS SUMMARY | 2024-12-06 12:58 | XMS_ITS | Encounter Summary ---
Author Organization [employer] Address [address] [place] [address] Care Team Providers Care [place] Auditor Name Role Phone Iva Howard MD Primary Care Provider + Reason for Visit * Reason Onset Date Comments unable to post insurance 06/01/2024 Encounter Details Date Type Department Care Team ([facility] st Contact Info) Description 06/01/2024 Telephone [facility]AL [address] [place] [address] Andrew Damon DDS [address] [place] [address] unable to post insurance Social History Tobacco [...] with others, in a hotel, in a retirement, living outside on the street, on a [...] Care Team (Late st Contact Info) Description 01/14/2025 10:45 AM EDT Office Visit [facility] MEDICINE [address] [place] [address] Iva Howard MD [address] [place] [address] documented as of this encounter Visit Diagnoses Not on filedocumented in this encounter Care Teams [place] Auditor Relationship Specialty Start Date End Date Iva Howard MD [address] [place] [address] PCP - General Family Medicine 12/23/17 documented as of this encounter
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
--- OUTSIDE RECORDS SUMMARY | 2024-12-06 12:58 | XMS_ITS | Encounter Summary ---
Author Organization [employer] Address [address] [place] [address] [address] [address] Care Team Providers Care Magazine Worker Name Role Phone Iva Howard MD Primary Care Provider + Reason for Visit * Reason Onset Date Comments PT 1 05/20/2023 Encounter Details Date Type Department Care Team ([facility] Contact Info) Description 05/20/2023 Telephone [facility] MEDICINE [address] [place], [place] [phone] Iva Howard MD [address] [place], [place] [phone] PT 1 Social History Tobacco Use Types [...] initiated but we has 3 different addresses [facility] and [facility] in chart which is what was used needs to update address with and Health Center if different * Telephone Encounter - Reno Fraser - 05/20/2023 9:45 AM EST PT1 needed Date: N/A Time: N/A Visits: 3 times monthly Address: [address] [place] [address] Facility: [address] Wheel Chair: No Insurance Law Specialist Needed: Yes 1 PT1 needed Date: N/A Time: N/A Visits: 3 times monthly Address: [address] [place] [address] Facility: [address] [place] [address] Wheel Chair: No Insurance Law Specialist Needed: Yes 1 documented in this encounter Plan of Treatment Upcoming Encounters Date Type Department Care Team (Late st Contact Info) Description 01/14/2025 10:45 AM EDT Office Visit [facility] MEDICINE [address] [place] [address] Iva Howard MD [address] [place] [address] documented as of this encounter Visit Diagnoses Not on filedocumented in this encounter Care Teams Magazine Worker Relationship Specialty Start Date End Date Iva Howard MD [address] [place] [phone] PCP - General Family Medicine 12/23/17 Morenita Vargas Shop Mechanic Helper 03/06/23 06/05/23 documented as of this encounter
--- OUTSIDE RECORDS SUMMARY | 2024-12-06 12:58 | XMS_ITS | Encounter Summary ---
Author Organization [employer] Address [address] [facility] 7 [place] [address] Care Team Providers Care Neonatal Nurse Name Role Phone Iva Howard MD Primary Care Provider + Encounter Details Date Type Department Care Team (Late st Contact Info) Description 12/06/2024 Orders Only [facility] External Provider, [facility] Social History Tobacco Use Types Packs/Day Years [...] your housing situation today? I have lizabeth sam 11/05/[address] you li [...] EDT Office Visit [facility] MEDICINE [address] [place] [phone] Iva Howard MD [address] [place] [address] [phone] documented as of this encounter Procedures Procedure Name Priority Date/Time Associated Diagnosis Comments US PELVIS TRANSVAGINAL Routine 12/06/2024 11:05 AM EDT documented in this encounter Results * US Pelvis Transvaginal (12/06/2024 11:05 AM EDT) Anatomical Region Laterality Modality Pelvis Ultrasound 12/06/2024 11:0 5 AM EDT Narrative 12/06/2024 11:59 AM EDT [address] [address] Ultrasound Report Signed Patient: Morenita Abbott MR#: [id number] : 1995 Acct:[id number] Age/Sex: 29 / F ADM Date: 12/06/24 Loc: HO. Attending Dr: Sreedhar Funk MD Ordering Physician: Sreedhar Funk MD Date of Service: 12/06/24 Procedure(s): US pelvic and transvaginal Accession Number(s): [id number] cc: Iva Howard MD; Sreedhar Funk MD Reason for [...] 12/06/24 1156 DD/ 1105 TD/TT: 12/06/24 [address] Layer: Procedure Note Donotuseinterpreter, Image - 12/06/[address] [address] Ultrasound Report Signed Patient: Morenita Abbott JMR#: [id number] : 1995Acct:[id number] Age/Sex: 29 / FADM Date: 12/06/24 Loc: HO.US Attending Dr: Sreedhar Funk MD Ordering Physician: Sreedhar Funk MD Date of Service: 12/06/24 Procedure(s): US pelvic and transvaginal Accession Number(s): [id number] cc: Iva Howard MD; Sreedhar Funk MD Reason for [...] 12/06/24 1156 DD/ 1105 TD/TT: 12/06/24 [address] Layer: [facility] External Provider IMG US PROCEDURES Edited Result - Final documented in this encounter Visit Diagnoses Not on filedocumented in this encounter Care Teams Neonatal Nurse Relationship Specialty Start Date End Date Iva Howard MD [address] [place] [phone] PCP - General Family Medicine 12/23/17 documented as of this encounter
--- OUTSIDE RECORDS SUMMARY | 2024-12-06 12:58 | XMS_ITS | Encounter Summary ---
Author Organization [employer] Address [address] [facility] 7 [place] [address] Care Team Providers Care Senior Power Scheduler Name Role Phone Iva Howard MD Primary Care Provider + Encounter Details Date Type Department Care Team (Late st Contact Info) Description 03/04/2023 Orders Only [facility] MEDICINE [address] [place], [place] [phone] Nichole Ralph RN [address] [place], [place] [phone] Social History Tobacco Use Types Packs/Day Years [...] Description 01/14/2025 10:45 AM EDT Office Visit [facility] MEDICINE [address] [place] [address] Iva Howard MD [address] [place] [address] documented as of this encounter Procedures Procedure Name Priority Date/Time Associated Diagnosis Comments PAP SMEAR Routine 01/23/2021 12:00 AM EDT documented in this encounter Results * Pap Smear (01/23/2021 12:00 AM EDT) Swab us Historical Provider LAB CYTOLOGY ORDERABLES F inal Result [facility] [address] [place] [address] documented in this encounter Visit Diagnoses Not on filedocumented in this encounter Care Teams Senior Power Scheduler Relationship Specialty Start Date End Date Iva Howard MD [address] [place] [phone] PCP - General Family Medicine 12/23/17 Morenita Vargas Director Radio News 03/06/23 06/05/23 documented as of this encounter
--- OUTSIDE RECORDS SUMMARY | 2024-12-06 12:59 | XMS_ITS ---
Author Organization [employer] Address [address] [place] [address] [place] [address] Care Team Providers Care Drivability Technician Name Role Phone Iva Howard MD Primary Care Provider + CHW Complex Status:Outreach In Progress (Enrolling) Start date:08/02/2024 Enrollment reason:ADT Feed Overview ADT- [facility] ED 07/30/24. Please outreach for enrollment. Case Team Name Relationship Phone Chyna Fraser(Responsible Staff) [phone] Continued Care and Services Coordination
--- OUTSIDE RECORDS SUMMARY | 2024-12-06 12:59 | XMS_ITS ---
Author Organization [employer] Address [address] [place] [address] [address] [place] [address] Care Team Providers Care Instrument/Control Technician Name Role Phone Iva Howard MD Primary Care Provider + CM Complex Status:Outreach In Progress (Enrolling) Start date:08/02/2024 Overview [facility] ED 07/30/24 Case Team Name Relationship Phone Katie Rao RN(Responsible Staff) Registered Nurse [phone] Continued Care and Services Coordination
== END 2024-12-06 10:44 | disposition home or self-care (01) ==
LOC: HO.US 10:43
PROVIDERS: PCP Internal Medicine; Visit Provider Obstetrics & Gynecology
DX: N83.299 Other ovarian cyst, unspecified side (principal)
CPT/HCPCS: 76830; 76856

== ENCOUNTER → 2024-12-06 10:46 | Outpatient (BNV) | payer MEDICAID, SELFPAY | PROVIDERS: PCP Internal Medicine; Visit Provider Radiology Diagnostic Radiology | DX: N83.291 Other ovarian cyst, right side (principal) | CPT/HCPCS: 76830; 76856 ==

== ENCOUNTER 2024-12-14 15:40 | Emergency (ER) | payer MEDICAID, SELFPAY ==
[2024-12-14 16:22] VITALS: BP 138/65; PULSE 75; RESP 20; TEMP 36.2; O2SAT 100; BMI 36.9
--- NOTE | 2024-12-14 16:23 | ED_ITS ---
HPI - General Adult General Chief complaint: Dyspnea Stated complaint: Weakness/Dizziness-Sent from Time Seen by Provider: 12/14/24 19:32 History of Present Illness ED Provider: Kirby Ocasio MD HPI narrative: 29-year-old female with abnormal uterine bleeding on iron scheduled for hysterectomy. Reports urinary frequency with malodorous urine. No fever or chills. Questionable syncopal event with dizziness prior. Related Data Previous Rx's ?Medication ?Instructions ?Recorded ibuprofen 800 mg tablet 800 mg PO Q8H PRN pain #30 t abs 04/16/20 naproxen 500 mg tablet 500 mg PO BID #20 tabs 02/25 ondansetron 4 mg disintegrating 4 mg PO Q8H PRN nausea and 02/28/23 tablet vomiting #20 tabs pchvfouock-unpcdgqqdzzgq-tdrcjphg 1 tab PO Q6H PRN hae adace #20 tabs 10/04/23 50 mg-325 mg-40 mg tablet epinephrine 0.3 mg/0.3 mL 0.3 mg (0.3 mL) IM Q10M PRN 08/04/24 injection, auto-injector (EpiPen) anaphylaxis #2 ea medroxyprogesterone 5 mg tablet 15 mg (3 x 5 mg) PO DA BETO 90 days 10/06/24 (Provera) #270 tabs Allergies Allergy/AdvReac Type Severity Reaction Status Date / Time sesame seed Allergy Anaphylaxis Verified 12/14/24 16:22 [facility] Past Medical History Medical History Preeclampsia Hypothyroid HPV in female Ovarian cyst Social History Social History Unable to assess alcohol history related to: Unknown Alcohol intake: current Alcohol intake frequency: does not drink Smoked in Last 30 Days: No Use of substances other than those prescribed or required for medical reasons: No Substance Use Type: Marijuana Advance Directives: No Advance Directives Information Provided: Yes Physical Exam ED Exam Exam: EXAM: Gen: Alert, awake, well appearing, well hydrated. Head: Atraumatic Eyes: Anicteric, Normal conjunctiva. ENT: Moist mucosa, no pallor. ? Neck: Supple. Skin: ?No observable rash or bruising on exposed or examined skin Respiratory: Breathing comfortably, No distress.Clear to auscultation bilaterally, symmetric chest expansion, No wheeze, rales, ronchi. Cardiovascular: Regular rate and rhythm. No murmurs or rub. Well perfused periphery, warm extremities. No edema. ? Abdominal: No focal tenderness. Soft, no objective distension. No palpable masses or obvious organomegaly. ?No guarding, no rebound tenderness or other peritoneal findings. : No flank tenderness. Neuro: Alert. Gross movement of all extremities intact. ? Psych: Calm. Cooperative. MSK: No grossly visible deformity. Vital signs: See flowsheet Vital Signs: Vital Signs - 24 hr 12/14/24 16:22 12/14/24 19:29 Temperature 97.1 F 98.2 F Pulse Rate 75 65 Respiratory Rate 20 12 Blood Pressure 138/65 121/51 L Pulse Oximetry 100 99 Oxygen Delivery Method Room Air Room Air BMI result Body Mass Index 36.9 Course Course Course Narrative: This is an RME: Additional HPI, ROS, PE not included below will be deferred to primary provider. RME assessment and note performed by: Susan Fox PA-C 28-year-old female with history of moderate persistent asthma, kidney stones, hepatic steatosis, hyperthyroidism, obesity who presents to the ER with complaints of DOTSON, dizziness with weakness. REports that she had a blood transfusion over the summer, and then had an iron infusion in october. No longer having menstrual bleeding. Reports that she had a near syncopal episode today. Dec 28 scheduled for a hysterectomy. Reports some suprapubic pain. Plan: Labs, UA, EKG. Medical Decision Making Medical Decision Making MDM Narrative: Medical Decision Makin-year-old female with a history of abnormal uterine bleeding scheduled for hysterectomy. Currently on iron. Hemoglobin has actually improved that is over 11 at this point. She does not appear anemic. She had a questionable syncopal event dizziness and generalized weakness prior. She is not overtly dyspneic or in any respiratory distress she is not tachycardic and her oxygen sat is 99% on room air. No clinical symptomatology of DVT. Doubt PE. Reassuring lab work including chemistry. Urinalysis not suggestive UTI culture sent Preliminary Favored Differential Diagnosis: UTI, dehydration, electrolyte derangement, anemia, vasovagal syncope, orthostasis, among additional considered etiologies Testing Interpreted Independently: ?See below for details Radiology or Lab testing Results Reviewed: ?See below for details Consults: ?See below for details Independent Historians/External Chart Reviews: ?See below for details Social Determinants of Health Impacting MDM/Planning: ?See below for details Lab Data 12/14/24 17:16 12/14/24 17:16 Labs: Lab Results 12/14/24 12/14/24 Range/Units 17:16 17:19 WBC 8.8 (4.8-10.8) X10*3/uL RBC 4.56 D (4.20-5.50) X10*6/uL Hgb 11.5 L D (12.0-16.0) g/dl Hct 38.1 D (37.0-47.0) % MCV 83.6 (80.0-98.0) fL MCH 25.2 L (27.0-33.0) pg MCHC 30.2 L (31.0-35.0) g/dl RDW 19.7 H (11.0-16.0) % Plt Count 227 D (160-400) X10*3/uL MPV 12.6 H (9.4-12.3) fL Immature Gran % (Auto) 0.3 (0.0-0.4) % Neut % (Auto) 64.9 (45-73) % Lymph % (Auto) 27.4 (20-40) % [place] % (Auto) 4.9 (2-11) % Eos % (Auto) 1.8 (0-4) % Baso % (Auto) 0.7 (0-2) % Lymph # (Auto) 2.4 (1.2-4.9) X10*3/uL [place] # (Auto) 0.4 (0.1-1.2) X10*3/uL Eos # (Auto) 0.2 (0.0-0.4) X10*3/uL Baso # (Auto) 0.1 (0.0-0.2) X10*3/uL Abs Immat Gran (auto) 0.03 (0.00-0.03) X10*3/uL Absolute Neuts (auto) 5.7 (2.0-8.3) x10*3/uL Absolute Nucleated RBC 0.000 (0.0-0.012) X10*3/uL Nucleated RBC % (auto) 0.0 (0.0-0.2) /100WBC Sodium 139 (135-145) mmol/L Potassium 3.9 (3.3-5.1) mmol/L Chloride 110 H (96-108) mmol/L Carbon Dioxide 21 L (22-29) mmol/L Anion Gap 12 (12-20) BUN 12 (9-16) mg/dL Creatinine 0.84 (0.5-1.4) mg/dL Estim Creat Clear Calc 148.4 Estimated GFR > 60 Random Glucose 100 (60-115) mg/dL Calcium 9.7 (8.4-10.2) mg/dL Magnesium 2.1 (1.6-2.6) mg/dL Iron 36 (30-160) mcg/dL TIBC 321 (228-428) mcg/dL % Saturation 11 L (15-50) % Unsat Iron Binding 285 ug/dL Total Bilirubin 0.8 (0.0-1.0) mg/dL Direct Bilirubin 0.2 (0.0-0.5) mg/dL AST 25 (5-31) U/L ALT 29 (0-31) U/L Alkaline Phosphatase 76 (39-117) U/L Troponin I High Sens < 2.7 (<3.5-17.0) ng/L Total Protein 7.6 (6.5-8.0) g/dL Albumin 4.3 (3.5-5.0) g/dL Urine Color Yellow Urine Appearance Clear Urine pH 6.5 (5.0-9.0) Ur Specific Ages [place] 1.025 (1.005-1.025) Urine Protein Negative (Neg-Trace) mg/dL Urine Glucose (UA) Negative (Negative) mg/dL Urine Ketones Negative (Negative) mg/dL Urine Blood Negative (Negative) Urine Nitrite Negative (Negative) Ur Leukocyte Esterase Trace H (Negative) Urine RBC 3-5 H (0-2) /HPF Urine WBC 0-5 (0-5) /HPF Ur Squamous Epith Cells 3-5 (0-2) /HPF Calcium Oxalate Crystal Present Urine Bacteria None Seen (None Seen) Hyaline Casts 0-2 (0-2) /LPF Blood Type Cancelled Antibody Screen Cancelled Independent Interpretation I performed an independent interpretation of an: EKG (Sinus rate 69 normal QTC and intervals. No ischemic changes no RV strain) Discharge Plan Discharge Clinical Impression: Syncope, Acute dehydration Patient Disposition: Home, Self-Care Instructions: Dehydration (DC), Syncope (ED) Additional Instructions: _ DISCHARGE DIAGNOSES: Near syncopal event Shortness of breath on exertion unclear cause possibly deconditioned. Blood testing showing ?antibodies ?. This is an important finding that in the future if you need blood transfusions your blood we will need to be tested for antibodies to make sure you get the appropriate blood products. Please inform your operating surgeon and team for the upcoming surgery about this when you arrived to the hospital the day of the surgery HISTORY OF PRESENTATION: ?Generalized weakness dizziness shortness of breath EMERGENCY DEPARTMENT COURSE,TESTS, TREATMENTS: While in the ED today we evaluated you and did not find any significant or emergent findings. You had blood counts that were normal with improved hemoglobin to over 11. You had normal blood chemistry you did not have any low oxygen or severe distress or severe rapid heart rate when walking and exerting yourself. Your lungs were clear you had no signs of pneumonia you had a normal EKG. DISCHARGE MEDICATIONS: ?[We have made no changes to your regular medication regimen] FOLLOW-UP: ?Call your primary or general physician soon as possible to discuss your symptoms, your ED visit and to discuss follow up plans Call your primary doctor for further workup INSTRUCTIONS ?& RETURN PRECAUTIONS: If any symptoms change first call your primary physician, if it is after-hours your primary doctors office should have a provider airways control specialist you can speak with. If the symptoms are severe or very concerning to you then call 911 or return to the ED. Kirby Ocasio MD Emergency Physician [facility] Prescriptions: No Action ibuprofen 800 mg tablet 800 mg PO Q8H PRN (Reason: pain) Qty: 30 0RF ondansetron 4 mg tablet,disintegrating 4 mg PO Q8H PRN (Reason: nausea and vomiting) Qty: 20 0RF ulatncuqic-rchbqvbmdcakk-qoav 50-325-40 mg tablet 1 tab PO Q6H PRN (Reason: haeadace) Qty: 20 0RF naproxen 500 mg tablet 500 mg PO BID Qty: 20 0RF epinephrine [EpiPen] 0.3 mg/0.3 mL auto-injector 0.3 mg IM Q10M PRN (Reason: anaphylaxis) Qty: 2 0RF Rx Instructions: for 2 doses medroxyprogesterone [Provera] 5 mg tablet 15 mg PO DAILY 90 Days Qty: 270 0RF Interventions: ED Discharge Assessment Last Done: 12/14/24 20:34 Discharge Date/Time: 12/14/24 20:34 Print Language: Martiniquais
--- NOTE | 2024-12-14 16:24 | ECG_ITS ---
Test Reason : syncope Blood Pressure : */* mmHG Vent. Rate : 69 BPM Atrial Rate : 69 BPM P-R Int : 158 ms QRS Dur : 88 ms QT Int : 376 ms P-R-T Axes : 28 32 -5 degrees QTcB Int : 402 ms Normal sinus rhythm Possible Left atrial enlargement T wave abnormality, consider inferior ischemia Abnormal ECG When compared with ECG of 15-Sep-2024 12:47, No significant change was found Referred By: Susan Fox Electronically Signed By: JENNIFER JOHNSON
[2024-12-14 17:25] LABS: MANUAL DIFF FLAG NO
[2024-12-14 17:27] LABS: Appearance Urine Clear; Glucose Urine UA Negative (Negative); PH 6.5 (5.0-9.0); Specific Gravity - Urine 1.025 (1.005-1.025); UMIC TRIGGER UACC YES
[2024-12-14 17:27] LABS: Hematocrit 38.1 % (37.0-47.0); Hemoglobin 11.5 g/dl (12.0-16.0); Imm Gran Abs Auto 0.03 X10*3/uL (0.00-0.03); Imm Gran Pct Auto 0.3 % (0.0-0.4); Lymphocytes Absolute Auto 2.4 X10*3/uL (1.2-4.9); Mean Corpuscular HGB Conc 30.2 g/dl (31.0-35.0); Mean Corpuscular Hemoglobin 25.2 pg (27.0-33.0); Mean Corpuscular Volume 83.6 fL (80.0-98.0); NRBC Abs Auto 0.000 X10*3/uL (0.0-0.012); NRBC Pct Auto 0.0 /100WBC (0.0-0.2); Platelet Count 227 X10*3/uL (160-400); Red Blood Count 4.56 X10*6/uL (4.20-5.50); White Blood Count 8.8 X10*3/uL (4.8-10.8)
[2024-12-14 17:40] LABS: Alanine Aminotransferase 29 U/L (0-31); Albumin Level 4.3 g/dL (3.5-5.0); Alkaline Phosphatase 76 U/L (39-117); Anion Gap 12 (12-20); Aspartate Amino Transferase 25 U/L (5-31); Blood Urea Nitrogen 12 mg/dL (9-16); Calcium 9.7 mg/dL (8.4-10.2); Carbon Dioxide 21 mmol/L (22-29); Chloride 110 mmol/L (96-108); Creatinine Clr Calc Pharmacy 148.4; Estimated Glomerular Filt Rate > 60; Iron 36 mcg/dL (30-160); Magnesium 2.1 mg/dL (1.6-2.6); Percent Iron Saturation 11 % (15-50); Potassium 3.9 mmol/L (3.3-5.1); Sodium 139 mmol/L (135-145); Total Iron Binding Capacity 321 mcg/dL (228-428); Total Protein 7.6 g/dL (6.5-8.0); Unsaturated Iron Binding 285 ug/dL
[2024-12-14 17:48] LABS: Troponin-I High Sensitivity < 2.7 ng/L (<3.5-17.0)
[2024-12-14 19:29] VITALS: BP 121/51; PULSE 65; RESP 12; TEMP 36.8; O2SAT 99
--- OUTSIDE RECORDS SUMMARY | 2024-12-14 20:05 | XMS_ITS | Clinical Summary ---
Author Organization [employer] Address [address] [place] [phone] Care Team Providers Care Timber Appraiser Name Role Phone Soraya Howard MD Primary [...] Once per day. 2 Active sodium chloride ([place] [place]) 0.65 % nasal sprayIndications :Viral syndrome 1-2 [...] ultrasound on 09/22/2024 and 09/15/2024 Referred to RASPER MACHINE OPERATOR at [facility], as per Dr. Funk Neck sprain 10/06/2024 [...] up to date, will obtain record from [facility] next one due 2024 Mammogram will start [...] exercise, life style modifications, diet, referral to mirror specialist. Discussed re lower calorie intake, increase dietary fiber Recurrent major depressive episodes, moderate Encounters Date Type Department Care Team Description 12/14/2024 Orders Only GENERIC EXTERNAL DATA DEPARTMENT Provider, Generic External Data 12/07/2024 Results Follow-Up [address] [address] Soraya Howard MD US Pelvis Transvaginal 12/06/2024 Orders Only [facility] External Provider, [facility] 11/24/[address] [address] Soraya Howard MD january11/12/[address] [address] Soraya Howard MD Chart Prep 11/08/[address] [address] Soraya Howard MD Care Coordination (SDOH/CM/CHW outreach) 11/05/[address] [address] Soraya Howard MD Pre-visit Planning (SDOH screening positive tobacco screening positive)) 10/14/2024 Orders Only GENERIC EXTERNAL DATA DEPARTMENT Provider, Generic External Data 10/13/[address] [address] Soraya Howard MD 10/12/[address] [address] Soraya Howard MD DME splint 10/06/2024 11:00 AM EDT Office Visit [address] [address] Soraya Howard MD Neck sprain, initial encounter (Primary Dx); Lumbar sprain, initial encounter; Tendinosis of right shoulder; Tendinitis, de Quervain's; Hand pain, left; Contusion of left knee, initial encounter; Viral syndrome 10/06/2024 Orders Only GENERIC EXTERNAL DATA DEPARTMENT Provider, Generic External Data 10/06/2024 Travel 10/04/[address] [address] Soraya Howard MD Chart Prep 09/29/[address] [address] Soraya Howard MD Referral 09/28/2024 Orders Only GENERIC EXTERNAL DATA DEPARTMENT Provider, Generic External Data 09/27/2024 Travel 09/24/2024 Results Follow-Up [address] [address] Soraya Howard MD CBC, US Pelvis Transvaginal 09/23/[address] [address] Soraya Howard MD Chart prep 09/22/2024 Travel 09/22/2024 Orders Only GENERIC EXTERNAL DATA DEPARTMENT Provider, Generic External Data 09/21/2024 Results Follow-Up [address] [address] Soraya Howard MD US Pelvis Transvaginal 09/20/[address] [address] Soraya Howard MD Nurse Triage 09/15/2024 10:40 AM EDT Office Visit [facility] [address] [place] [address] Torey Hensley MD Abnormal uterine bleeding (Primary Dx); Severe anemia; Elevated blood pressure reading in office without diagnosis of hypertension 09/15/[address] [address] Soraya Howard MD Care Management (C3CM- initial assessment/ enrollment. Unable to complete.) 09/15/2024 Orders Only [facility] External Provider, [facility] 09/15/2024 Travel 09/13/2024 Patient Outreach [address] [place] [address] Soraya Howard MD Care Management (C3CM- initial assessment/ enrollment. Not available.) from Last 3 Months Immunizations Immunization Administration [...] Description 01/14/2025 10:45 AM EDT Office Visit [facility] [address] [place] [address] Soraya Howard MD [address] [place] [address] Health Maintenance Due Date Last Done Comments [...] Screening 03/18/2024 03/18/2023, 03/18/20 23 COVID-19 Vaccine ( season) 2024 10/02/2021, 08/09/2020, 07/12/2020 Influenza Vaccine [...] Procedure Name Priority Date/Time Associated Diagnosis Comments URINALYSIS, COMPLETE, WITH REFLEX TO CULTURE Routine 12/14/2024 5:19 PM EDT HIGH SENSITIVITY TROPONIN I Routine 12/14/2024 5:16 PM EDT IRON AND TOTAL IRON BINDING CAPACITY Routine 12/14/2024 5:16 PM EDT MAGNESIUM Routine 12/14/2024 5:16 PM EDT BASIC METABOLIC PANEL Routine 12/14/2024 5:16 PM EDT HEPATIC FUNCTION PANEL Routine 12/14/2024 5:16 PM EDT CBC WITH AUTO DIFFERENTIAL Routine 12/14/2024 5:16 PM EDT US PELVIS TRANSVAGINAL Routine 12/06/2024 11:05 AM [...] Recently Relevant to Health Maintenance Results * (ABNORMAL) Urinalysis, Complete, with Reflex to Culture (12/14/2024 5:19 PM EDT) Only the most recent of2 resultswithin the time period is included. Color Urine Yellow [facility] Appearance Urine Clear [facility] PH 6.5 5.0 - 9.0 [facility] Glucose Urine UA Negative Negative mg/dL [facility] Urine Blood Negative Negative [facility] Specific [place] - Urine 1.025 1.005 - 1.025 [facility] Urine Protein Negative Neg-Trace mg/dL [facility] Urine Ketones Negative Negative mg/dL [facility] Nitrite Urine Negative Negative [facility] Leukocyte Esterase Urine Trace(A) Negative [facility] RBC Urine 3-5(A) 0 - 2 /HPF [facility] Urine WBC 0-5 0 - 5 /HPF [facility] Urine Squamous Epithelial Cell 3-5 0 - 2 /HPF [facility] CALCIUM OXALATE CRYSTAL, UR Present [facility] Urine Bacteria None Seen None Seen [facility] Hyaline Casts, Urine 0-2 0 - 2 /LPF [facility] 12/14/2024 5:19 PM EDT 12/14/2024 5:23 PM EDT Narrative [facility] - 12/14/2024 5:54 PM EDT [id number], Clean Catch us Generic External Data Provider LAB URINE ORDERAB LES Final Result [facility] [address] [place] [phone] * High Sensitivity Troponin I (12/14/2024 5:16 PM EDT) TROPONIN I HIGH SENSITIVITY <2.7 <3.5 - 17.0 ng/L [facility] Comment:The Horta high sens itivity Troponin-I results should beused in conjunction with other diagnostic information suchas ECG, clinical observations and information, and patientsymptoms to aid in the diagnosis of [place]. 12/14/2024 5:16 PM EDT 12/14/2024 5:23 PM EDT us Generic External Data Provider LAB BLOOD ORDERAB LES Final Result [facility] [address] [place] [address] [phone] * (ABNORMAL) CBC auto differential (12/14/2024 5:16 PM EDT) Only the most recent of3 resultswithin the time period is included. White Blood Count 8.8 4.8 - 10.8 X10*3/uL [facility] Red Blood Count 4.56 4.20 - 5.50 X10*6/uL [facility] Hemoglobin 11.5(L) 12.0 - 16.0 g/dl [facility] Hematocrit 38.1 37.0 - 47.0 % [facility] Mean Corpuscular Volume 83.6 80.0 - 98.0 fL [facility] Mean Corpuscular Hemoglobin 25.2(L) 27.0 - 33.0 pg [facility] Mean Corpuscular HGB Conc 30.2(L) 31.0 - 35.0 g/dl [facility] Red Cell Distribution Width 19.7(H) 11.0 - 16.0 % [facility] Platelet Count 227 160 - 400 X10*3/uL [facility] Mean Platelet Volume 12.6(H) 9.4 - 12.3 fL [facility] Neutrophils Percent Auto 64.9 45 - 73 % [facility] Imm Gran Pct Auto 0.3 0.0 - 0.4 % [facility] Lymphocytes Percent Auto 27.4 20 - 40 % [facility] Monocytes Percent Auto 4.9 2 - 11 % [facility] Eosinophils Percent Auto 1.8 0 - 4 % [facility] Basophils Percent Auto 0.7 0 - 2 % [facility] NRBC Pct Auto 0.0 0.0 - 0.2 /100WBC [facility] Neutrophils Absolute Auto 5.7 2.0 - 8.3 x10*3/uL [facility] Imm Gran Abs Auto 0.03 0.00 - 0.03 X10*3/uL [facility] Lymphocytes Absolute Auto 2.4 1.2 - 4.9 X10*3/uL [facility] Monocytes Absolute Auto 0.4 0.1 - 1.2 X10*3/uL [facility] Eosinophils Absolute Auto 0.2 0.0 - 0.4 X10*3/uL [facility] Basophils Absolute Auto 0.1 0.0 - 0.2 X10*3/uL [facility] NRBC Abs Auto 0.000 0.0 - 0.012 X10*3/uL [facility] 12/14/2024 5:16 PM EDT 12/14/2024 5:23 PM EDT us Generic External Data Provider LAB BLOOD ORDERAB LES Final Result Performing Organization Address City/State/[facility] Co de Phone Number [facility] [address] [place] [phone] * (ABNORMAL) Iron And Total Iron Binding Capacity (12/14/2024 5:16 PM EDT) Iron 36 30 - 160 mcg/dL [facility] Total Iron Binding Capacity 321 228 - 428 mcg/dL [facility] Percent Iron Saturation 11(L) 15 - 50 % [facility] Unsaturated Iron Binding 285 ug/dL [facility] 12/14/2024 5:16 PM EDT 12/14/2024 5:23 PM EDT us Generic External Data Provider LAB BLOOD ORDERAB LES Final Result Performing Organization Address City/[facility]/ZIP Co de Phone Number [facility] [address] [place] [phone] [phone] * Magnesium (12/14/2024 5:16 PM EDT) [facility] Magnesium 2.1 1.6 - 2.6 mg/dL [facility] 12/14/2024 5:16 PM EDT 12/14/2024 5:23 PM EDT Generic External Data Provider LAB BLOOD ORDERAB LES Final Result Performing Organization Address [facility] Co de Phone Number [facility] [address] [place] [phone] * Hepatic Function Panel (12/14/2024 5:16 PM EDT) [facility] Bilirubin, Total 0.8 0.0 - 1.0 mg/dL [facility] Bilirubin, Direct 0.2 0.0 - 0.5 mg/dL [facility] Aspartate Amino Transferase 25 5 - 31 U/L [facility] Alanine Aminotransferase 29 0 - 31 U/L [facility] Total Protein 7.6 6.5 - 8.0 g/dL [facility] Albumin Level 4.3 3.5 - 5.0 g/dL [facility] Alkaline Phosphatase 76 39 - 117 U/L [facility] 12/14/2024 5:16 PM EDT 12/14/2024 5:23 PM EDT us Generic External Data Provider LAB BLOOD ORDERAB LES Final Result Performing Organization Address [facility] Co de Phone Number [facility] [address] [place] [phone] * (ABNORMAL) Basic Metabolic Panel (12/14/2024 5:16 PM EDT) [facility] Sodium 139 135 - 145 mmol/L [facility] Potassium 3.9 3.3 - 5.1 mmol/L [facility] Chloride 110(H) 96 - 108 mmol/L [facility] Carbon Dioxide 21(L) 22 - 29 mmol/L [facility] Anion Gap 12 12 - 20 [facility] Urea Nitrogen (BUN) 12 9 - 16 mg/dL [facility] Creatinine, Serum 0.84 0.5 - 1.4 mg/dL [facility] Creatinine Clr Calc Pharmacy 148.4 [facility] Comment:Provided height and weight: 185.42 cm,126.9 kg.eGFR (calculated from the MDRD study equation) and eCrCl(calculated from the Cockcroft-Gault equation) are based ondifferent parameters and may not yield comparable results.If eCrCl result is absurd, please check patient'sheight/weight. Estimated Glomerular Filt Rate >60 [facility] Comment:Chronic Kidney Disea se: Estimated GFR < 60 mL/min/1.17o5Igwdsm Kidney Disease: Estimated GFR < 15 mL/min/1.73m2 Glucose 100 60 - 115 mg/dL [facility] Calcium 9.7 8.4 - 10.2 mg/dL [facility] 12/14/2024 5:16 PM EDT 12/14/2024 5:23 PM EDT us Generic External Data Provider LAB BLOOD ORDERAB LES Final Result Performing Organization Address City/State/[facility] Co de Phone Number [facility] [address] [place] [phone] * US Pelvis Transvaginal (12/06/2024 11:05 AM EDT) Only the most recent of3 resultswithin the time period is included. Anatomical Region Laterality Modality Pelvis Ultrasound 12/06/2024 11:0 5 AM EDT Narrative 12/06/2024 11:59 AM EDT [address] [address] Ultrasound Report Signed Patient: Morenita Abbott MR#: [id number] 997 : 1995 Acct:[id number] Age/Sex: 29 / F ADM Date: 12/06/24 Loc: HO.US Attending Dr: Sreedhar Funk MD Ordering Physician: Sreedhar Funk MD Date of Service: 12/06/24 Procedure(s): US pelvic and transvaginal Accession Number(s): [id number] cc: Soraya Howard MD; Sreedhar Funk MD [...] 12/06/24 1156 DD/ 1105 TD/TT: 12/06/24 1125 Export Clerk: Procedure Note Donotuseinterpreter, Image - 12/06/2024 [place] [address] Ultrasound Report Signed Patient: Morenita Abbott JMR#: [id number] 997 : 1995Acct:[id number] Age/Sex: 29 / FADM Date: 12/06/24 Loc: HO.US Attending Dr: Sreedhar Funk MD Ordering Physician: Sreedhar Funk MD Date of Service: 12/06/24 Procedure(s): US pelvic and transvaginal Accession Number(s): [id number] cc: Soraya Howard MD; Sreedhar Funk MD [...] 12/06/24 1156 DD/ 1105 TD/TT: 12/06/24 1125 Export Clerk: us [facility] External Provider IMG US PROCEDURES Edited Result - Final * Hematoxylin and Eosin Stain (10/14/2024 11:33 AM EDT) Only the most recent of2 resultswithin the time period is included. 10/14/2024 11:3 3 AM EDT 10/14/2024 1:00 PM EDT [facility] - 10/15/2024 2:26 PM EDT ----- ------- Name: Morenita Abbott Age/Sex: 28/F : 1995 Unit#: [id number] Attend Dr: Sreedhar Funk MD Re10/14/24 Status: DEP REF Location: HO.LNP Disch: ----- ------- SPEC : [id number] RECD: 10/14/24-1299 STATUS: ZULLY SMITH NUM: [id number] [place]: 10/14/24-1133 [facility] DR: Sreedhar Funk MD ENTERED: 10/14/24-1301 SP TYPE: Surgical OTHR DR: Soraya Howard MD ORDERED: HE Stain/, Gross Micro L4/6 Diagnosis A. Endocervix, curettage: [...] noted on the patient's recent Pap smear ([id number]; ASCUS; HPV+) correlate with the current biopsy [...] Morenita Abbott Age/Sex: 28/F : 1995 Unit#: [id number] Attend Dr: Sreedhar Funk MD Re10/14/24 Status: DEP REF Location: [facility] Disch: ----- ------- SPEC : [id number] RECD: 10/14/24 STATUS: ZULLY SMITH NUM: [id number] [place]: 10/14/24-1133 [facility] DR: Sreedhar Funk MD ENTERED: 10/14/24-1301 SP [...] developed and their performance characteristics determined by [facility]. They have not been cleared or approved by the U.S. Food and Drug Administration (FDA). However, the FDA has determined that such clearance or approval is not necessary. This laboratory is certified under the Clinical Laboratory Improvement Amendments of 1988 (CLIA) as qualified to perform high complexity clinical laboratory testing. Copies To: Soraya Howard MD [address] [address] CONTINUED ON NEXT PAGE ----- ------- Name: ScarMorenita Age/Sex: 28/F : 1995 Unit#: [id number] Attend Dr: Sreedhar Funk MD Re10/14/24 Status: DEP REF Location: HO.LNP Disch: ----- ------- SPEC : [id number] RECD: 10/14/24-1299 STATUS: ZULLY BUENOMary NUM: [id number] [place]: 10/14/24-1133 [facility] DR: Sreedhar Funk MD ENTERED: 10/14/24-1301 SP TYPE: Surgical OTHR DR: Soraya Howard MD ORDERED: SUSAN Wilson/, Yani Micro L4/6 Copies To: (Continued) Sreedhar Funk MD [facility] [address] [place] [address] Drive [address] [place] [phone] ----- ------- Signed (signature on file) Mely Bautista MD 10/15/24 1426 ----- ------- END OF REPORT us Generic External Data Provider LAB BLOOD ORDERAB LES Final Result Performing Organization Address City/State/[facility] Co de Phone Number [facility] [address] [place] [phone] * XR Knee 4+ Views Left (10/06/2024 2:59 PM EDT) Anatomical Region Laterality Modality Lower Extremities, Knee Left [facility] 10/06/2024 2:59 PM EDT Narrative 10/06/2024 4:36 PM EDT [address] [address] XRay Report Signed Patient: Morenita Abbott MR#: [id number] 997 : 1995 Acct:[id number] Age/Sex: 28 / F ADM Date: 10/06/24 Loc: HO.HHCX Attending Dr: Sreedhar Funk MD Ordering Physician: Soraya Howard MD Date of Service: 10/06/24 Procedure(s): XR knee LT 4V Accession Number(s): [id number] cc: Soraya Howard MD EXAMINATION: XR KNEE, [...] 10/06/24 1633 DD/ 1459 TD/TT: 10/06/24 1520 Export Clerk: Procedure Note Donotignaciainterpreter, Image - 10/06/[address] [address] XRay Report Signed Patient: Morenita Abbott JMR#: [id number] 997 : 1995Acct:[id number] Age/Sex: Date: 10/06/24 Loc: HO.HHCX Attending Dr: Sreedhar Funk MD Ordering Physician: Soraya Howard MD Date of Service: 10/06/24 Procedure(s): XR knee LT 4V Accession Number(s): [id number] cc: Soraya Howard MD EXAMINATION: XR KNEE, [...] 10/06/24 1633 DD/ 1459 TD/TT: 10/06/24 1520 Export Clerk: Soraya Howard MD IMG XR PROCEDURES Final Result * XR Lumbar Spine Complete 4+ Views (10/06/2024 2:52 PM EDT) Anatomical Region Laterality Modality Spine, L-spine Radiographic Maggi ging 10/06/2024 2:52 PM EDT Narrative 10/06/2024 4:38 PM EDT [address] [address] XRay Report Signed Patient: Morenita Abbott MR#: [id number] 997 : 1995 Acct:[id number] Age/Sex: 28 / F ADM Date: 10/06/24 Loc: HO.CX Attending Dr: Sreedhar Funk MD Ordering Physician: Soraya Howard MD Date of Service: 10/06/24 Procedure(s): XR lumbar spine 4V min Accession Number(s): [id number] cc: Soraya Howard MD EXAMINATION: XR LUMBOSACRAL [...] 10/06/24 1636 DD/ 1452 TD/TT: 10/06/24 1520 Export Clerk: Procedure Note Donotuseinterpreter, Image - 10/06/[address] [address] XRay Report Signed Patient: Morenita Abbott JMR#: [id number] 997 : 1995Acct:[id number] Age/Sex: 28 / FADM Date: 10/06/24 Loc: HO.HHCX Attending Dr: Sreedhar Funk MD Ordering Physician: Soraya Howard MD Date of Service: 10/06/24 Procedure(s): XR lumbar spine 4V min Accession Number(s): [id number] cc: Soraya Howard MD EXAMINATION: XR LUMBOSACRAL [...] 10/06/24 1636 DD/ 1452 TD/TT: 10/06/24 1520 Export Clerk: Soryaa Howard MD IMG XR PROCEDURES Final Result * XR CERVICAL SPINE 3V (10/06/2024 2:47 PM EDT) Anatomical Region Laterality Modality Abdomen Radiographic Maggi ging 10/06/2024 2:47 PM EDT Narrative 10/06/2024 4:37 [place] [address] XRay Report Signed Patient: Morenita Abbott MR#: [id number] 997 : 1995 Acct:[id number] Age/Sex: 28 / F ADM Date: 10/06/24 Loc: .HHCX Attending Dr: Sreedhar Funk MD Ordering Physician: Soraya Howard MD Date of Service: 10/06/24 Procedure(s): XR cervical spine 3V Accession Number(s): [id number] cc: Soraya Howard MD EXAMINATION: XR CERVICAL [...] 10/06/24 1634 DD/ 1447 TD/TT: 10/06/24 1520 Export Clerk: Procedure Note Donotuseinterpreter, Image - 10/06/[address] [address] XRay Report Signed Patient: Morenita Abbott JMR#: [id number] 997 : 1995Acct:[id number] Age/Sex: 28 FADM Date: 10/06/24 Loc: HO.HHCX Attending Dr: Sreedhar Funk MD Ordering Physician: Soraya Howard MD Date of Service: 10/06/24 Procedure(s): XR cervical spine 3V Accession Number(s): [id number] cc: Soraya Howard MD EXAMINATION: XR CERVICAL [...] 10/06/24 1634 DD/ 1447 TD/TT: 10/06/24 1520 Export Clerk: Soraya Howard MD IMG XR PROCEDURES Final Result * XR Shoulder 2+ Views Right (10/06/2024 2:43 PM EDT) Anatomical Region Laterality Modality Upper Extremities, Shoulder Right Radi ographic Imaging 10/06/2024 2:43 PM EDT Narrative 10/06/2024 4:35 PM EDT [address] [address] XRay Report Signed Patient: Morenita Abbott MR#: [id number] 997 : 1995 Acct:[id number] Age/Sex: 28 / F ADM Date: 10/06/24 Loc: HO.HHCX Attending Dr: Sreedhar Funk MD Ordering Physician: Soraya Howard MD Date of Service: 10/06/24 Procedure(s): XR shoulder RT min 2V Accession Number(s): [id number] cc: Soraya Howard MD EXAMINATION: XR SHOULDER, [...] 10/06/24 1632 DD/ 1443 TD/TT: 10/06/24 1520 Export Clerk: Procedure Note Donotignaciainterpreter, Image - 10/06/[address] [address] XRay Report Signed Patient: Morenita Abbott JMR#: [id number] 997 : 1995Acct:[id number] Age/Sex: 28 / FADM Date: 10/06/24 Loc: NIKOX Attending Dr: Sreedhar Funk MD Ordering Physician: Soraya Howard MD Date of Service: 10/06/24 Procedure(s): XR shoulder RT min 2V Accession Number(s): [id number] cc: Soraya Howard MD EXAMINATION: XR SHOULDER, [...] 10/06/24 1632 DD/ 1443 TD/TT: 10/06/24 1520 Export Clerk: Soraya Howard MD IMG XR PROCEDURES Final Result * XR Wrist 3+ Views Right (10/06/2024 2:39 PM EDT) Anatomical Region Laterality Modality Upper Extremities, Wrist Right Radiogr aphic Imaging 10/06/2024 2:39 PM EDT Narrative 10/06/2024 4:34 PM EDT [address] [address] XRay Report Signed Patient: Morenita Abbott MR#: [id number] 997 : 1995 Acct:[id number] Age/Sex: 28 / F ADM Date: 10/06/24 Loc: NIKOX Attending Dr: Sreedhar Funk MD Ordering Physician: Soraya Howard MD Date of Service: 10/06/24 Procedure(s): XR wrist RT min 3V Accession Number(s): [id number] cc: Soraya Howard MD EXAMINATION: XR WRIST, [...] 10/06/24 1632 DD/ 1439 TD/TT: 10/06/24 1520 Export Clerk: Procedure Note Donotuseinterpreter, Image - 10/06/[address] [address] XRay Report Signed Patient: Morenita Abbott JMR#: [id number] 997 : 1995Acct:[id number] Age/Sex: 28 FADM Date: 10/06/24 Loc: HO.HHCX Attending Dr: Sreedhar Funk MD Ordering Physician: Soraya Howard MD Date of Service: 10/06/24 Procedure(s): XR wrist RT min 3V Accession Number(s): [id number] cc: Soraya Howard MD EXAMINATION: XR WRIST, [...] 10/06/24 1632 DD/ 1439 TD/TT: 10/06/24 1520 Export Clerk: us Soraya Howard MD IMG XR PROCEDURES Final Result * Bacterial Vaginosis (10/06/2024 2:00 PM EDT) Only the most recent of2 resultswithin the time period is included. TRICHOMONAS VAGINALIS DETECTION BY PCR NOT DETECTED Not Detect [facility] BACTERIAL VAGINOSIS DETECTION BY PCR NEGATIVE Negative [facility] Comment:The BV organism targ ets of [...] DETECTION BY PCR NOT DETECTED Not Detect [facility] Anna glab krusei PCR NOT DETECTED Not Detect [facility] 10/06/2024 2:00 PM EDT 10/06/2024 3:16 PM EDT us Generic External Data Provider LAB MICROBIOLOGY - GENERAL ORDERABLES Final Result [facility] [address] [place] [phone] * Slide Review (09/28/2024 2:09 AM EDT) Slide Review VERIFIED [facility] 09/28/2024 2:09 AM EDT 09/28/2024 2:09 PM EDT us Generic External Data Provider LAB BLOOD ORDERAB LES Final Result Performing Organization Address City/[facility]/ZIP Co de Phone Number [facility] [address] [place] [phone] * (ABNORMAL) CBC (09/22/2024 2:16 PM EDT) White Blood Count 7.8 4.8 - 10.8 X10*3/uL [facility] Red Blood Count 3.54(L) 4.20 - 5.50 X10*6/uL [facility] Hemoglobin 8.5(L) 12.0 - 16.0 g/dl [facility] Hematocrit 27.9(L) 37.0 - 47.0 % [facility] Mean Corpuscular Volume 78.8(L) 80.0 - 98.0 fL [facility] Mean Corpuscular Hemoglobin 24.0(L) 27.0 - 33.0 pg [facility] Mean Corpuscular HGB Conc 30.5(L) 31.0 - 35.0 g/dl [facility] Red Cell Distribution Width 16.7(H) 11.0 - 16.0 % [facility] Platelet Count 184 160 - 400 X10*3/uL [facility] NRBC Pct Auto 0.0 0.0 - 0.2 /100WBC [facility] NRBC Abs Auto 0.000 0.0 - 0.012 X10*3/uL [facility] 09/22/2024 2:16 PM EDT 09/22/2024 2:16 PM EDT Generic External Data Provider LAB BLOOD ORDERAB LES Final Result Performing Organization Address City/[facility]/ZIP Co de Phone Number [facility] [address] [place] [phone] * (ABNORMAL) Hemoglobin and Hematocrit (09/15/2024 11:04 PM EDT) Hemoglobin 7.9(L) 12.0 - 16.0 g/dl [facility] Hematocrit 25.4(L) 37.0 - 47.0 % [facility] [facility] 09/15/2024 11:0 4 PM EDT 09/15/2024 11:08 PM EDT us Generic External Data Provider LAB BLOOD ORDERAB LES Final Result [facility] [address] [place] [address] [phone] * Chlamydia/N. Gonorrhoeae RNA, TMA, Urogenitial (09/15/2024 2:34 PM EDT) CT PCR NOT DETECTED Not Detect. [facility] Comment:A not detected test result does [...] psychologicalconsequences. NG PCR NOT DETECTED Not Detect. [facility] Comment:A not detected test result does [...] PM EDT 09/15/2024 2:42 PM EDT Narrative [facility] - 09/15/2024 4:16 PM EDT Vaginal Generic External Data Provider LAB MICROBIOLOGY - GENERAL ORDERABLES Final Result Performing Organization Address [facility] Co de Phone Number [facility] [address] [place] [phone] * Red blood count (09/15/2024 2:34 PM EDT) Red Blood Cells: [id number] AP RC TRANSFUSED 09/15/24 1550 [id number] AP RC TRANSFUSED 09/15/242001 [facility] 09/15/2024 2:34 PM EDT 09/15/2024 2:45 PM EDT Generic External Data Provider LAB BLOOD ORDERAB LES Final Result Performing Organization Address [facility] de Phone Number [facility] [address] [place] [phone] * Type and screen (09/15/2024 2:34 PM EDT) Blood Type AP [facility] Antibody Screen NEGATIVE [facility] 09/15/2024 2:34 PM EDT 09/15/2024 2:45 PM EDT [facility] - 09/15/2024 11:08 PM EDT There is no BB band# attached to spec. It is required fortesting. Spec to be recollected. Results at Issue Units as of 09/15/24 1551 ...Test View Group: Most Recent HGB HCT Results LABORATORYDate Time Test Result Flag Normal Range09/15/24 1257 HGB 6.7 #*L 12.0-16.0 g/dlResults of HGB called to and read back by BRENDADanielleAUDELIAYulissa 09/15/24 at 1306 by SUZY.09/15/24 1257 HCT 23.0 # L 37.0-47.0 % Results at Issue Units as of 09/15/242002 ...Test View Group: Most Recent HGB HCT Results LABORATORYDate Time Test Result Flag Normal Range09/15/24 1257 HGB 6.7 #*L 12.0-16.0 g/dlResults of HGB called to and read back by BRENDADannielle 09/15/24 at 1306 by [email or web address]/15/24 1257 HCT 23.0 # L 37.0-47.0 % Hgb < 7 gmNo Generic External Data Provider LAB BLOOD BANK [facility] ORDERABLES Final Result [facility] [address] [place] [phone] * Pathologist Review - CBC (09/15/2024 12:57 PM EDT) Pathologist Review - CBC SEE NOTE [facility] Comment:Anemia with microcyt ic RBC s and polychromasia, compatiblewith the patient's known blood loss due to heavy vaginalbleeding.Possible rouleaux formation noted: can be seen ininfections, inflammatory and connective tissue disorders,diabetes mellitus, and hematologic disorders among others.Clinical correlation is necessary.Carlita Conchita, MD 09/15/2024 12:5 7 PM EDT 09/15/2024 1:01 PM EDT us Generic External Data Provider LAB BLOOD ORDERAB LES Final Result Performing Organization Address [facility]/State/ZIP Co de Phone Number [facility] [address] [place] [phone] * (ABNORMAL) POCT Hemoglobin (09/15/2024 11:57 AM EDT) Hemoglobin 8.0(A) 12.0 - 15.0 Blood 09/15/2024 11:5 7 AM EDT Torey Hensley MD POINT OF CARE TEST ENTER/EDIT OR DERABLES Final Result * HIV-1/2 Antigen and Antibodies, Fourth Generation, with Reflexes (03/18/2023 9:47 AM EST) HIV AB/AG Nonreactive Nonreactive [facility] Comment:HIV-1 p24 Ag and/or HIV-1/HIV-2 Ab not detected.A test result that is nonreactive does not exclude thepossibility of exposure to or infection with HIV-1 and/orHIV-2. Nonreactive results in this assay for individualswith prior exposure to HIV-1 and/or HIV-2 may be due toantigen and antibody levels that are below the limit ofdetection of this assay.[facility] HIV Ag/Ab Combo assay result andsupplemental assay results should be interpreted inconjunction with the patient's clinical presentation,history and other laboratory results. If the results areinconsistent with clinical evidence, additional testing issuggested to confirm the result. Blood Venous blood specimen / Unknown 03/18/2023 9:47 AM EST 03/18/2023 11:16 AM EST us Soraya Howard MD LAB BLOOD ORDERABLES Fin al Result Performing Organization Address [facility] Co de Phone Number [facility] [address] [place] [phone] * (ABNORMAL) Lipid Panel with Reflex to Direct LDL (02/13/2023 9:58 AM EST) Triglycerides 111 <150 mg/dL [facility] Comment:Desirable Triglyceri de: less than 150 mg/dLBorderline High Triglyceride 150-199 mg/dLHigh Triglyceride: 200-499 mg/dLVery High Triglyceride: greater than or equal to 5OO mg/dL Cholesterol 186 <200 mg/dL [facility] Comment:Desirable Cholestero l: less than 200 mg/dLBorderline High Cholesterol: 200-239 mg/dLHigh Cholesterol: greater than 239 mg/dL LDL Cholesterol Calculated 118(H) <100 mg/dL [facility] Comment:Desirable LDL: less than 100 mg/dLNear Optimal/Above Optimal LDL: 110- 129 mg/dLBorderline High LDL: 130-159 mg/dLHigh LDL: 160-189 mg/dLVery High LDL: greater than or equal to 190 mg/dL HDL Cholesterol 46 >40 mg/dL [facility] Comment:Desirable HDL: great er than 40 mg/dL Note: This HDL assay may give artificially low results in patients with liver disease. Blood 02/13/2023 9:58 AM EST 02/13/2023 11:01 AM EST Soraya Howard MD LAB BLOOD ORDERABLES Fin al Result Performing Organization Address [facility] Co de Phone Number [facility] [address] [place] [phone] * Hepatitis Panel, General (02/13/2023 9:58 AM EST) Hepatitis A IgM Nonreactive Nonreactive [facility] Comment:IgM antibodies to VALDERRAMA V not detected; does not exclude earlyacute or recovered HAV infection. ~Hepatitis B Surface Antibody NONREACTIVE Nonreactive [facility] Comment:Nonreactive: < 8.00 mIU/mL Hepatitis B Core Antibody Nonreactive Nonreactive [facility] Hepatitis C Antibody Nonreactive Nonreactive [facility] Comment:Antibodies to HCV no t detected; does not exclude early acuteHCV infection. Hepatitis B Surface Ag Negative Negative [facility] Blood 02/13/2023 9:58 AM EST 02/13/2023 11:01 AM EST Soraya Howard MD LAB BLOOD ORDERABLES Fin al Result [facility] [address] [place] [phone] * Hm Pap Smear (01/23/2021) Pap Negative for intraephithelial lesion or malignancy Negative for intraephithelial lesion or malignancy, Other HPV Undetected Undetected, Indeterminate, Quantitative, Not Detected Historical Provider HEALTH MAINTENANCE Final Result * Pap Smear (01/23/2021 12:00 AM EDT) Swab Result [facility] Historical Provider LAB CYTOLOGY ORDERABLES F inal Result Performing Organization Address [facility] Co de Phone Number [facility] [address] [place] [address] from Last 3 Months or Most Recently Relevant to Health Maintenance Insurance * Guarantor: Morenita Abbott Account Type Relation to Patient Date of Phone Billing Address Personal/Family Self 1995 [address] [place] [address] [facility] STAND ADULT [employer] Care Teams Timber Appraiser Relationship Specialty Start Date End Date Soraya Howard MD [address] [place] [phone] PCP - General Family Medicine 12/23/17
--- OUTSIDE RECORDS SUMMARY | 2024-12-14 20:05 | XMS_ITS | Encounter Summary ---
Author Organization [employer] Address [address] [facility] 7 [place] [address] Care Team Providers Care Director Blood Bank Name Role Phone Iva Howard MD Primary Care Provider + Encounter Details Date Type Department Care Team (Late st Contact Info) Description 03/04/2023 Orders Only [facility] MED[facility]INE [address] [place], [place] [phone] Nichole Ralph RN [address] [place], [place] [phone] Social History Tobacco Use Types Packs/Day Years [...] Description 01/14/2025 10:45 AM EDT Office Visit [facility] [address] [place] [address] Iva Howard MD [address] [place] [address] documented as of this encounter Procedures Procedure Name Priority Date/Time Associated Diagnosis Comments PAP SMEAR Routine 01/23/2021 12:00 AM EDT documented in this encounter Results * Pap Smear (01/23/2021 12:00 AM EDT) Swab us Historical Provider LAB CYTOLOGY ORDERABLES F inal Result [facility] [address] [place] [address] documented in this encounter Visit Diagnoses Not on filedocumented in this encounter Care Teams Director Blood Bank Relationship Specialty Start Date End Date Iva Howard MD [address] [place] [phone] PCP - General Family Medicine 12/23/17 Morenita Vargas Fibreglass Lay Up Worker 03/06/23 06/05/23 documented as of this encounter
--- OUTSIDE RECORDS SUMMARY | 2024-12-14 20:05 | XMS_ITS | Encounter Summary ---
Author Organization [employer] Address [address] [facility] 7 [place] [address] Care Team Providers Care Side Gluer Name Role Phone Iva Howard MD Primary Care Provider + Encounter Details Date Type Department Care Team (Latest Contact Info) Description 12/07/2024 Results Follow-Up [facility] MEDICINE [address] [place], [place] [phone] Iva Howard MD [address] [place], [place] [phone] [place] Pelvis Transvaginal Social History Tobacco Use Types Packs/Day Years [...] your housing situation today? I have lizabeth sing 11/05/[address] you li [...] as of this encounter Miscellaneous Notes * Result Encounter Note - Iva Howard MD - 12/07/2024 3:44 PM EDT Pelvic US reviewed, ordered and fu by PARKING LOT MANAGER. documented in this encounter Plan of Treatment Upcoming Encounters Date Type Department Care Team (Late st Contact Info) Description 01/14/2025 10:45 AM EDT Office Visit [facility]INE [address] [place] [address] Iva Howard MD [address] [place] [address] documented as of this encounter Visit Diagnoses Not on filedocumented in this encounter Care Teams Side Gluer Relationship Specialty Start Date End Date Iva Howard MD [address] [place] [phone] PCP - General Family Medicine 12/23/17 documented as of this encounter
--- OUTSIDE RECORDS SUMMARY | 2024-12-14 20:05 | XMS_ITS ---
Author Organization [employer] Address [address] [place] [address] [place] [address] Care Team Providers Care Shuttle Fitting Supervisor Name Role Phone Iva Howard MD Primary Care Provider + CM Complex Status:Outreach In Progress (Enrolling) Start date:08/02/2024 Enrollment reason:ADT Feed Overview ADT- [facility] ED 07/30/24 Case Team Name Relationship Phone Katie Rao RN(Responsible Staff) Registered Nurse [phone] Continued Care and Services Coordination
--- OUTSIDE RECORDS SUMMARY | 2024-12-14 20:05 | XMS_ITS | Encounter Summary ---
Author Organization [employer] Address [address] [place] [address], [place] [address] Care Team Providers Care Junior Copywriter Name Role Phone Iva Howard MD Primary Care Provider + Reason for Visit * Reason Onset Date Comments PT 1 05/20/2023 Encounter Details Date Type Department Care Team ([facility] Contact Info) Description 05/20/2023 Telephone [facility] MEDICINE [address] [place], [place] [phone] Iva Howard MD [address] [place], [place] [phone] PT 1 Social History Tobacco Use Types [...] initiated but we has 3 different addresses [facility] and [place] in chart which is what was used needs to update address with and Health Center if different * Telephone Encounter - Reno Fraser - 05/20/2023 9:45 AM EST PT1 needed Date: N/A Time: N/A Visits: 3 times monthly Address: [address] [place] [address] Facility: [address] Wheel Chair: No Remarketing Manager Needed: Yes 1 PT1 needed Date: N/A Time: N/A Visits: 3 times monthly Address: [address] [place] [address] Facility: [address] [place] [address] Wheel Chair: No Remarketing Manager Needed: Yes 1 documented in this encounter Plan of Treatment Upcoming Encounters Date Type Department Care Team (Late st Contact Info) Description 01/14/2025 10:45 AM EDT Office Visit [facility] MEDICINE [address] [place] [address] Iva Howard MD [address] [place] [address] documented as of this encounter Visit Diagnoses Not on filedocumented in this encounter Care Teams Junior Copywriter Relationship Specialty Start Date End Date Iva Howard MD [address] [place] [phone] PCP - General Family Medicine 12/23/17 Morenita Vargas Elevator Constructor Supervisor 03/06/23 06/05/23 documented as of this encounter
--- OUTSIDE RECORDS SUMMARY | 2024-12-14 20:05 | XMS_ITS ---
Author Organization [employer] Address [address] [place] [address] [place] [address] Care Team Providers Care Tank Maker Wood Name Role Phone Iva Howard MD Primary Care Provider + CHW Complex Status:Outreach In Progress (Enrolling) Start date:08/02/2024 Enrollment reason:ADT Feed Overview ADT- [facility] ED 07/30/24. Please outreach for enrollment. Case Team Name Relationship Phone Chyna Fraser(Responsible Staff) [phone] Continued Care and Services Coordination
--- OUTSIDE RECORDS SUMMARY | 2024-12-14 20:05 | XMS_ITS | Encounter Summary ---
Author Organization [employer] Address [address] [place] [phone] Care Team Providers Care Dye Colorist Dyer Name Role Phone Iva Howard MD Primary Care Provider + Reason for Visit * Reason Onset Date Comments unable to post insurance 06/01/2024 Encounter Details Date Type Department Care Team ([facility] st Contact Info) Description 06/01/2024 Telephone [facility] ADULT DENTAL [address] [place] [address] Andrew Damon DDS [address] [place] [address] unable to post insurance Social History Tobacco [...] with others, in a hotel, in a fdc, living outside on the street, on a [...] Office Visit [facility] MEDICINE [address] [place] [address] Iva Howard MD [address] [place] [address] documented as of this encounter Visit Diagnoses Not on filedocumented in this encounter Care Teams Dye Colorist Dyer Relationship Specialty Start Date End Date Iva Howard MD [address] [place] [address] PCP - General Family Medicine 12/23/17 documented as of this encounter
--- OUTSIDE RECORDS SUMMARY | 2024-12-14 20:05 | XMS_ITS | Encounter Summary ---
Author Organization [employer] Address [address] [place] [address] 7 [place] [address] Care Team Providers Care Messenger Office Name Role Phone Iva Howard MD Primary Care Provider + Encounter Details Date Type Department Care Team (Late st Contact Info) Description 12/14/2024 Orders Only GENERIC EXTERNAL DATA DEPARTMENT Provider, Generic External Data Social History Tobacco Use Types Packs/Day Years [...] t he electric, gas, oil or water [employer] threatened to shut off services in your [...] Description 01/14/2025 10:45 AM EDT Office Visit [facility] [address] [place], [place] [phone] Iva Howard MD [address] [place], [place] [phone] documented as of this encounter Procedures Procedure Name Priority Date/Time Associated Diagnosis Comments URINALYSIS, COMPLETE, WITH REFLEX TO CULTURE Routine 12/14/2024 5:19 PM EDT HIGH SENSITIVITY TROPONIN I Routine 12/14/2024 5:16 PM EDT CBC WITH AUTO DIFFERENTIAL Routine 12/14/2024 5:16 PM EDT IRON AND TOTAL IRON BINDING CAPACITY Routine 12/14/2024 5:16 PM EDT MAGNESIUM Routine 12/14/2024 5:16 PM EDT HEPATIC FUNCTION PANEL Routine 12/14/2024 5:16 PM EDT BASIC METABOLIC PANEL Routine 12/14/2024 5:16 PM EDT documented in this encounter Results * (ABNORMAL) Urinalysis, Complete, with Reflex to Culture (12/14/2024 5:19 PM EDT) Color Urine Yellow [facility] Appearance Urine Clear [facility] PH 6.5 5.0 - 9.0 [facility] Glucose Urine UA Negative Negative mg/dL [facility] Urine Blood Negative Negative [facility] Specific [place] - Urine 1.025 1.005 - 1.025 [facility] Urine Protein Negative Neg-Trace mg/dL [facility] Urine Ketones Negative Negative mg/dL [facility] Nitrite Urine Negative Negative [facility] Leukocyte Esterase Urine Trace(A) Negative [facility] RBC Urine 3-5(A) 0 - 2 /HPF [facility] Urine WBC 0-5 0 - 5 /HPF [facility] Urine Squamous Epithelial Cell 3-5 0 - 2 /HPF [facility] CALCIUM OXALATE CRYSTAL, UR Present [facility] Urine Bacteria None Seen None Seen [facility] Hyaline Casts, Urine 0-2 0 - 2 /LPF [facility] 12/14/2024 5:19 PM EDT 12/14/2024 5:23 PM EDT Narrative [facility] - 12/14/2024 5:54 PM EDT [id number], Clean Catch us Generic External Data Provider LAB URINE ORDERAB LES Final Result [facility] [address] [place] [phone] * High Sensitivity Troponin I (12/14/2024 5:16 PM EDT) TROPONIN I HIGH SENSITIVITY <2.7 <3.5 - 17.0 ng/L [facility] Comment:The Horta high sens itivity Troponin-I results should beused in conjunction with other diagnostic information suchas ECG, clinical observations and information, and patientsymptoms to aid in the diagnosis of CT. 12/14/2024 5:16 PM EDT 12/14/2024 5:23 PM EDT us Generic External Data Provider LAB BLOOD ORDERAB LES Final Result Performing Organization Address [facility] de Phone Number [facility] [address] [place] [phone] * (ABNORMAL) Iron And Total Iron Binding Capacity (12/14/2024 5:16 PM EDT) Pathologist [facility] Iron 36 30 - 160 mcg/dL [facility] Total Iron Binding Capacity 321 228 - 428 mcg/dL [facility] Percent Iron Saturation 11(L) 15 - 50 % [facility] Unsaturated Iron Binding 285 ug/dL [facility] 12/14/2024 5:16 PM EDT 12/14/2024 5:23 PM EDT Generic External Data Provider LAB BLOOD ORDERAB LES Final Result Performing Organization Address [facility] Phone Number [facility] [address] [place] [phone] * Magnesium (12/14/2024 5:16 PM EDT) [facility] Magnesium 2.1 1.6 - 2.6 mg/dL [facility] 12/14/2024 5:16 PM EDT 12/14/2024 5:23 PM EDT Generic External Data Provider LAB BLOOD ORDERAB LES Final Result Performing Organization Address [facility] de Phone Number [facility] [address] [place] [phone] * (ABNORMAL) Basic Metabolic Panel (12/14/2024 5:16 PM EDT) [facility] Sodium 139 135 - 145 mmol/L [facility] Potassium 3.9 3.3 - 5.1 mmol/L [facility] Chloride 110(H) 96 - 108 mmol/L [facility] Carbon Dioxide 21(L) 22 - 29 mmol/L [facility] Anion Gap 12 12 - 20 [facility] Urea Nitrogen (BUN) 12 9 - 16 mg/dL [facility] Creatinine, Serum 0.84 0.5 - 1.4 mg/dL [facility] Creatinine Clr Calc Pharmacy 148.4 [facility] Comment:Provided height and weight: 185.42 cm,126.9 kg.eGFR (calculated from the MDRD study equation) and eCrCl(calculated from the Cockcroft-Gault equation) are based ondifferent parameters and may not yield comparable results.If eCrCl result is absurd, please check patient'sheight/weight. Estimated Glomerular Filt Rate >60 [facility] Comment:Chronic Kidney Disea se: Estimated GFR < 60 mL/min/1.77j4Ngsdui Kidney Disease: Estimated GFR < 15 mL/min/1.73m2 Glucose 100 60 - 115 mg/dL [facility] Calcium 9.7 8.4 - 10.2 mg/dL [facility] 12/14/2024 5:16 PM EDT 12/14/2024 5:23 PM EDT us Generic External Data Provider LAB BLOOD ORDERAB LES Final Result [facility] [address] [place] [address] [phone] * Hepatic Function Panel (12/14/2024 5:16 PM EDT) Bilirubin, Total 0.8 0.0 - 1.0 mg/dL [facility] Bilirubin, Direct 0.2 0.0 - 0.5 mg/dL [facility] Aspartate Amino Transferase 25 5 - 31 U/L [facility] Alanine Aminotransferase 29 0 - 31 U/L [facility] Total Protein 7.6 6.5 - 8.0 g/dL [facility] Albumin Level 4.3 3.5 - 5.0 g/dL [facility] Alkaline Phosphatase 76 39 - 117 U/L [facility] 12/14/2024 5:16 PM EDT 12/14/2024 5:23 PM EDT us Generic External Data Provider LAB BLOOD ORDERAB LES Final Result [facility] [address] [place] [phone] * (ABNORMAL) CBC auto differential (12/14/2024 5:16 PM EDT) White Blood Count 8.8 4.8 - 10.8 X10*3/uL [facility] Red Blood Count 4.56 4.20 - 5.50 X10*6/uL [facility] Hemoglobin 11.5(L) 12.0 - 16.0 g/dl [facility] Hematocrit 38.1 37.0 - 47.0 % [facility] Mean Corpuscular Volume 83.6 80.0 - 98.0 fL [facility] Mean Corpuscular Hemoglobin 25.2(L) 27.0 - 33.0 pg [facility] Mean Corpuscular HGB Conc 30.2(L) 31.0 - 35.0 g/dl [facility] Red Cell Distribution Width 19.7(H) 11.0 - 16.0 % [facility] Platelet Count 227 160 - 400 X10*3/uL [facility] Mean Platelet Volume 12.6(H) 9.4 - 12.3 fL [facility] Neutrophils Percent Auto 64.9 45 - 73 % [facility] Imm Gran Pct Auto 0.3 0.0 - 0.4 % [facility] Lymphocytes Percent Auto 27.4 20 - 40 % [facility] Monocytes Percent Auto 4.9 2 - 11 % [facility] Eosinophils Percent Auto 1.8 0 - 4 % [facility] Basophils Percent Auto 0.7 0 - 2 % [facility] NRBC Pct Auto 0.0 0.0 - 0.2 /100WBC [facility] Neutrophils Absolute Auto 5.7 2.0 - 8.3 x10*3/uL [facility] Imm Gran Abs Auto 0.03 0.00 - 0.03 X10*3/uL [facility] Lymphocytes Absolute Auto 2.4 1.2 - 4.9 X10*3/uL [facility] Monocytes Absolute Auto 0.4 0.1 - 1.2 X10*3/uL [facility] Eosinophils Absolute Auto 0.2 0.0 - 0.4 X10*3/uL [facility] Basophils Absolute Auto 0.1 0.0 - 0.2 X10*3/uL [facility] NRBC Abs Auto 0.000 0.0 - 0.012 X10*3/uL [facility] 12/14/2024 5:16 PM EDT 12/14/2024 5:23 PM EDT us Generic External Data Provider LAB BLOOD ORDERAB LES Final Result Performing Organization Address City/State/[facility] Co de Phone Number [facility] [address] [place] [phone] documented in this encounter Visit Diagnoses Not on filedocumented in this encounter Care Teams Messenger Office Relationship Specialty Start Date End Date Iva Howard MD [address] [place] [phone] PCP - General Family Medicine 12/23/17 documented as of this encounter
[2024-12-14 20:34] VITALS: BP 121/51; PULSE 65; RESP 12; TEMP 36.8; O2SAT 99
== END 2024-12-14 20:34 | disposition home or self-care (01) ==
PROVIDERS: Physician Assistant Medical; Emergency Provider Emergency Medicine; PCP Internal Medicine
DX: E86.0 Dehydration (principal); R55 Syncope and collapse; N93.8 Other specified abnormal uterine and vaginal bleeding; R06.02 Shortness of breath; E03.9 Hypothyroidism, unspecified
CPT/HCPCS: 36415; 80048; 80076; 81001; 83540; 83735; 84484; 85025; 86850; 86900; 86901; 93005; 99283; 99284

== ENCOUNTER → 2024-12-14 16:24 | Outpatient (BNV) | payer MEDICAID, SELFPAY | PROVIDERS: Emergency Provider Emergency Medicine; PCP Internal Medicine; Visit Provider Internal Medicine | DX: R94.31 Abnormal electrocardiogram [ECG] [EKG] (principal); R55 Syncope and collapse | CPT/HCPCS: 93010 ==

== ENCOUNTER 2024-12-23 15:50 | Outpatient (AMB) | payer MEDICAID, SELFPAY ==
--- NOTE | 2024-12-23 15:50 | A.OFFVIS_ITS ---
Intake Visit Reasons: ultrasound results [employer] Coordinator Required: No Information Interpreted: non-clinical & clinical Allergies sesame seed Allergy (Verified 12/23/24 15:51) Anaphylaxis HPI Comments Details: The patient is schedule telehealth visit to discuss the results the ultrasound. The patient was refer to Dr. Juan Pablo rogers at [facility] for minimally invasive hysterectomy for which she is scheduled in 6 days and has a preop appointment the day before. 12/06/2024 pelvic ultrasound showed the following: Uterus: The uterus is anteverted and measures 9.3 x 5.0 x 6.2 cm. The double wall endometrial thickness is 19 mm. There is trace fluid in the endometrial canal and small cystic changes in the endometrial. The uterus is smooth in contour and has normal myometrial echogenicity. No visible fibroid. Adnexa: Both ovaries are visualized. There is normal color flow to the adnexa. There is no ovarian torsion. There is no pelvic ascites or fluid collection. Right ovary measures 5.2 x 3.5 x 2.9 cm. There is a cyst measuring 2.8 x 2.6 x 2.5 cm with low-level internal echogenicity that does not demonstrate flow on color Doppler. Left ovary measures 2.8 x 1.4 x 2.1 cm. US/US pelvic and transvaginal IMPRESSION: Persistent thickening of the endometrium raises question of endometrial hyperplasia or polyp, and carcinoma is not ruled out. 2.8 cm mildly complex right ovarian cyst that is likely hemorrhagic in nature 09/22 [facility] pathology showed the following: Endometrium, biopsy: Benign disordered proliferative endometrium with ectatic stromal vessels with focal fibrin thrombi, and focal breakdown; no atypia or carcinoma [facility] Medical History Preeclampsia Hypothyroid HPV in female Ovarian cyst Social History Unable to assess alcohol history related to: Unknown Alcohol intake: current Alcohol intake frequency: does not drink Substance Use Type: Marijuana Female Reproductive History Menstrual Age of Menarche: 2 Telehealth Telehealth Telehealth Platform: Doxim[employer] Location of provider rendering services: practice address Location of patient: address on file Patient Identification confirmed using: Name, : Yes Telehealth method: video Patient verbally consented to treatment: Yes Patient verbally consented to billing insurance company: Yes Patient informed of any privacy concerns related to visit: Yes Assessment & Plan Assessment & Plan (1) Complex ovarian cyst: Code(s): N83.299 - Other ovarian cyst, unspecified side Category: Medical Plan: Discussed with the patient the complex ovarian cyst by ultrasound. Discussed with the patient the Ultrasound findings, the main limitation of transvaginal ultrasonography alone as a diagnostic tool to distinguish benign from malignant masses relates to its lack of specificity and low positive predictive value for cancer. The differential diagnosis discussed with the patient includes the following but not limited to: benign and malignant gynecological and non-gynecological causes. Since the patient is scheduled for minimally invasive hysterectomy with Dr. Walls we will fax the report to her office, the patient stated that she would like to shrimp picker her ultrasound report copy and discuss it with Dr. Walls at her preop visit . We will schedule a three-month follow-up appointment case no ovarian cystectomy and/or oophorectomy was done to rule order a pelvic ultrasound for follow-up. All questions answered, the patient verbalized understanding I spent a total of 20 minutes reviewing the chart, talking to the patient via video and documenting in the medical record. Coding Level of Care Code Tele Est Pt Level 3 (30559) Diagnoses Complex ovarian cyst N83.299
--- OUTSIDE RECORDS SUMMARY | 2024-12-23 19:48 | XMS_ITS ---
Author Organization [employer] Address [address] [place] [address] [place] [address] Care Team Providers Care Family Practice Medical Doctor Name Role Phone Iva Howard MD Primary Care Provider + CHW Complex Status:Outreach In Progress (Enrolling) Start date:08/02/2024 Enrollment reason:ADT Feed Overview ADT- [facility] ED 07/30/24. Please outreach for enrollment. Case Team Name Relationship Phone Chyna Fraser(Responsible Staff) [phone] Continued Care and Services Coordination
--- OUTSIDE RECORDS SUMMARY | 2024-12-23 19:48 | XMS_ITS | Encounter Summary ---
Author Organization [employer] Address [address] [place] [address] [address] [address] Care Team Providers Care Junior Electrical Engineer Name Role Phone Iva Howard MD Primary Care Provider + Reason for Visit * Reason Onset Date Comments PT 1 05/20/2023 Encounter Details Date Type Department Care Team ([facility] Contact Info) Description 05/20/2023 Telephone [facility] [address] [place], [place] [phone] Iva Howard MD [address] [place], [place] [phone] PT 1 Social History Tobacco Use Types [...] initiated but we has 3 different addresses [facility] and [place] in chart which is what was used needs to update address with and Health Center if different * Telephone Encounter - Reno Fraser - 05/20/2023 9:45 AM EST PT1 needed Date: N/A Time: N/A Visits: 3 times monthly Address: [address] [place] [address] Facility: [address] Wheel Chair: No Glue Mounter Operator Needed: Yes 1 PT1 needed Date: N/A Time: N/A Visits: 3 times monthly Address: [address] [place] [address] Facility: [address] [place] [address] Wheel Chair: No Glue Mounter Operator Needed: Yes 1 documented in this encounter Plan of Treatment Upcoming Encounters Date Type Department Care Team (Late st Contact Info) Description 01/14/2025 10:45 AM EDT Office Visit [facility] [address] [place] [address] Iva Howard MD [address] [place] [phone] documented as of this encounter Visit Diagnoses Not on filedocumented in this encounter Care Teams Junior Electrical Engineer Relationship Specialty Start Date End Date Iva Howard MD [address] [place] [phone] PCP - General Family Medicine 12/23/17 Morenita Vargas Rope Laying Machine Operator 03/06/23 06/05/23 documented as of this encounter
--- OUTSIDE RECORDS SUMMARY | 2024-12-23 19:48 | XMS_ITS | Clinical Summary ---
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 Smear (01/23/2021 12:00 AM EDT) Swab Historical Provider LAB CYTOLOGY ORDERABLES F inal Result Performing Organization Address City/[facility]/ZIP Co de Phone Number [facility] [address] [place] [address] from Last 3 Months or Most Recently Relevant to Health Maintenance Insurance * Guarantor: Morenita Abbott Account Type Relation to Patient Date of Phone Billing Address Personal/Family Self 1995 [address] [place] [address] [facility] C[facility] D[facility] MEDICAID STAND ADULT [employer]IVE [employer] INSURANCE * Guarantor: Morenita Abbott Account Type Relation to Patient Date of Phone Billing Address Personal/Family Self [address] [place] [address] Care Teams Tree Feller Operator Relationship Specialty Start Date End Date Soraya Howard MD [address] [place] [phone] PCP - General Family Medicine 12/23/17
--- OUTSIDE RECORDS SUMMARY | 2024-12-23 19:48 | XMS_ITS ---
Author Organization [employer] Address [address] [place] [address] [place] [address] Care Team Providers Care Apprentice Carpenter Name Role Phone Iva Howard MD Primary Care Provider + CM Complex Status:Outreach In Progress (Enrolling) Start date:08/02/2024 Enrollment reason:ADT Feed Overview ADT- [facility] ED 07/30/24 Case Team Name Relationship Phone Katie Rao RN(Responsible Staff) Registered Nurse [phone] Continued Care and Services Coordination
--- OUTSIDE RECORDS SUMMARY | 2024-12-23 19:48 | XMS_ITS | Encounter Summary ---
Author Organization [employer] Address [address] [facility] 7 [place] [address] Care Team Providers Care Gas Analyst Name Role Phone Iva Howard MD Primary Care Provider + Encounter Details Date Type Department Care Team (Late st Contact Info) Description 03/04/2023 Orders Only [facility] [address] [place], [place] [phone] Nichole Ralph RN [address] [place], [place] [phone] Social History Tobacco Use Types Packs/Day Years [...] Description 01/14/2025 10:45 AM EDT Office Visit [facility] [address] [place] [address] Iva Howard MD [address] [place] [address] documented as of this encounter Procedures Procedure Name Priority Date/Time Associated Diagnosis Comments PAP SMEAR Routine 01/23/2021 12:00 AM EDT documented in this encounter Results * Pap Smear (01/23/2021 12:00 AM EDT) Swab us Historical Provider LAB CYTOLOGY ORDERABLES F inal Result [facility] [address] [place] [address] documented in this encounter Visit Diagnoses Not on filedocumented in this encounter Care Teams Gas Analyst Relationship Specialty Start Date End Date Iva Howard MD [address] [place] [phone] PCP - General Family Medicine 12/23/17 Morenita Vargas E Mail System Administrator 03/06/23 06/05/23 documented as of this encounter
--- OUTSIDE RECORDS SUMMARY | 2024-12-23 19:48 | XMS_ITS | Encounter Summary ---
Author Organization [employer] Address [address] [place] [phone] Care Team Providers Care Soft Sugar Supervisor Name Role Phone Iva Howard MD Primary Care Provider + Reason for Visit * Reason Onset Date Comments unable to post insurance 06/01/2024 Encounter Details Date Type Department Care Team ([facility] st Contact Info) Description 06/01/2024 Telephone [facility] [address] [place] [address] Andrew Damon DDS [address] [place] [address] unable to post insurance Social History Tobacco [...] with others, in a hotel, in a mcfp, living outside on the street, on a [...] Description 01/14/2025 10:45 AM EDT Office Visit [facility] [address] [place] [address] Iva Howard MD [address] [place] [address] documented as of this encounter Visit Diagnoses Not on filedocumented in this encounter Care Teams Soft Sugar Supervisor Relationship Specialty Start Date End Date Iva Howard MD [address] [place] [address] PCP - General Family Medicine 12/23/17 documented as of this encounter
--- OUTSIDE RECORDS SUMMARY | 2024-12-23 19:48 | XMS_ITS | Encounter Summary ---
Author Organization [employer] Address [address] [facility] 7 [place] [address] Care Team Providers Care Plastic Dolls Mold Filler Name Role Phone Iva Howard MD Primary Care Provider + Encounter Details Date Type Department Care Team (Latest Contact Info) Description 12/07/2024 Results Follow-Up [facility] [address] [place], [place] [phone] Iva Howard MD [address] [place], [place] [phone] [place] Pelvis Transvaginal Social History Tobacco Use [...] Pelvic US reviewed, ordered and fu by DISTRICT SCOUT EXECUTIVE. documented in this encounter Plan of Treatment Upcoming Encounters Date Type Department Care Team (Late st Contact Info) Description 01/14/2025 10:45 AM EDT Office Visit [facility] [address] [place] [address] Iva Howard MD [address] [place] [address] documented as of this encounter Visit Diagnoses Not on filedocumented in this encounter Care Teams Plastic Dolls Mold Filler Relationship Specialty Start Date End Date Iva Howard MD [address] [place] [phone] PCP - General Family Medicine 12/23/17 documented as of this encounter
== END 2024-12-23 16:39 | disposition home or self-care (01) ==
LOC: HO.HWS 15:50
PROVIDERS: PCP Internal Medicine; Visit Provider Obstetrics & Gynecology
DX: N83.299 Other ovarian cyst, unspecified side (principal)
CPT/HCPCS: 99213

== ENCOUNTER 2025-03-18 21:38 | Emergency (ER) | payer MEDICAID, SELFPAY ==
[2025-03-18 21:43] VITALS: BP 140/69; PULSE 73; RESP 18; TEMP 36.6; O2SAT 100; BMI 37.2
[2025-03-18 22:53] LABS: IDNOW Serial# 58CA691E; Strep A Nucleic Acid Negative (Negative)
[2025-03-18 23:23] LABS: Resp Syncy Virus RNA Qual PCR NEGATIVE (Negative); SARS COV2 PCR INHOUSE NEGATIVE (Negative)
--- OUTSIDE RECORDS SUMMARY | 2025-03-19 00:05 | XMS_ITS | Encounter Summary ---
Author Organization [employer] Address [address] [place] [address], [place] [address] Care Team Providers Care Tube Splicer Name Role Phone Iva Howard MD Primary Care Provider + Reason for Visit * Reason Onset Date Comments PT 1 05/20/2023 Encounter Details Date Type Department Care Team ([facility] Contact Info) Description 05/20/2023 Telephone [facility] MED[facility] [address] [place], [place] [phone] Iva Howard MD [address] [place], [place] [phone] PT 1 Social History Tobacco Use Types [...] initiated but we has 3 different addresses [facility] and [place] in chart which is what was used needs to update address with and Health Center if different * Telephone Encounter - [place] Fraser - 05/20/2023 9:45 AM EST PT1 needed Date: N/A Time: N/A Visits: 3 times monthly Address: [address] [place] [address] Facility: [address] Wheel Chair: No Sap Portal Consultant Needed: Yes 1 PT1 needed Date: N/A Time: N/A Visits: 3 times monthly Address: [address] [place] [address] Facility: [address] [place] [address] Wheel Chair: No Sap Portal Consultant Needed: Yes 1 documented in this encounter Plan of Treatment Not on file documented as of this encounter Visit Diagnoses Not on filedocumented in this encounter Care Teams Tube Splicer Relationship Specialty Start Date End Date Iva Howard MD [address] [place] [phone] PCP - General Family Medicine 12/23/17 Morenita Vargas Gm 03/06/23 06/05/23 documented as of this encounter
--- OUTSIDE RECORDS SUMMARY | 2025-03-19 00:05 | XMS_ITS | Encounter Summary ---
Author Organization [employer] Address [address] [facility] 7 [place] [address] Care Team Providers Care Transportation Maintenance Worker Name Role Phone Iva Howard MD Primary Care Provider + Encounter Details Date Type Department Care Team (Late st Contact Info) Description 03/04/2023 Orders Only [facility] [address] [place], [place] [phone] Nichole Ralph RN [address] [place], [place] [phone] Social History Tobacco Use Types Packs/Day Years [...] as of this encounter Plan of Treatment Not on file documented as of this encounter Procedures Procedure Name Priority Date/Time Associated Diagnosis Comments PAP SMEAR Routine 01/23/2021 12:00 AM EDT documented in this encounter Results * Pap Smear (01/23/2021 12:00 AM EDT) Swab us Historical Provider LAB CYTOLOGY ORDERABLES F inal Result [facility] [address] [place] [address] documented in this encounter Visit Diagnoses Not on filedocumented in this encounter Care Teams Transportation Maintenance Worker Relationship Specialty Start Date End Date Iva Howard MD [address] [place] [address] PCP - General Family Medicine 12/23/17 Morenita Vargas Medical Care Administrator 03/06/23 06/05/23 documented as of this encounter
--- OUTSIDE RECORDS SUMMARY | 2025-03-19 00:05 | XMS_ITS | Clinical Summary ---
Author Organization [employer] Address [address] [place] [address] [address] [address] Care Team Providers Care Spinning Mule Operator Name Role Phone Iva Howard MD [...] Once per day. 2 Active sodium chloride (Greenwood Nasal [place]) 0.65 % nasal sprayIndications :Viral syndrome 1-2 sprays on each nostril every 2-3 hours as needed for nasal congestion 30 mL 1 3 Active fluticasone (Flonase) 50 MCG/ACT nasal sprayIndications :Allergic Rhinitis,Eye Pruritus,Nasal Congestion,Sneez ing Administer 2 sprays into each nostril Once per day. Shake gently. Before first use, prime pump. After use, clean tip and replace cap. Active meloxicam (Mobic) 15 MG tablet Take [...] headaches or fever. 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 Assessment & Plan (08/12/2023 4:53 PM EDT): I explain to patient a positive IVA test does not mean lupus and her symptoms can be explain by recent infections that she had I will refer patient to rheumatology Moderate persistent asthma 08/12/2023 Assessment & Plan (01/14/2025 3:43 PM EDT): She is doing well on albuterol as needed only She declined influenza and COVID immunization, I advised about RSV and PCV immunization at earliest convenience as well Assessment & Plan (08/12/2023 4:51 PM EDT): [...] transmitted disease counseling 03/18/20 Assessment & Plan (01/14/2025 3:43 PM EDT): Patient has been with a stable male partner for more than 6 months now, recent STI testing is negative We discussed about using condoms at all times, use of PrEP which patient is not interested on at this time. She is aware of our [facility] building STD screening services Assessment & Plan (03/18/2023 9:58 AM EST): Counseled regarding use condoms at all times Will complete STI testing today and counseled her partner to do his own testing as well Subacute cough 02/13/2023 Assessment & Plan (02/13/2023 9:51 AM EST): Most likely asthma and use albuterol PRN Order PFTs Encounter for preventive health examination 01/29 Assessment & Plan (01/14/2025 3:32 PM EDT): Discussed with patient re increase fresh fruit and vegetable intake. Counseled re moderate exercise as tolerated, up to 20min/d Patient feels safe at home. PAP smear up to date, she was no longer needed it due to hysterectomy, cervix pathology was normal. Mammogram, will start now due to first-degree family member with breast cancer at age 40. Eye exam: Due this year, patient will call PVD clinic and schedule an appointment Vaccinations declined COVID and influenza immunization today. Advised to have PCV and RSV as well other than his convenience. Dental: Overdue, I gave her information about dental clinics in the area including our in-house dental clinic Assessment & Plan (02/13/2023 9:49 AM EST): Discussed with patient re increase fresh fruit and vegetable intake. Counseled re moderate exercise as tolerated, up to 20min/d Patient feels safe at home. PAP smear up to date, will obtain record from [facility] next one due 2024 Mammogram will [...] extremity with pain 02/13/2023 Assessment & Plan (01/14/2025 3:26 PM EDT): Counseled regarding wt reduction and increase exercise counseled to use compression stockings to the pantyhose thigh level Fu 3mo Assessment & Plan (02/13/2023 9:52 AM EST): Counseled regarding wt reduction and increase exercise counseled to use compression stockings to the pantyhose thigh level Fu 4 wks Other specified anemias 02/13/2023 Assessment & Plan (02/13/2023 9:53 AM EST): Apparently from Order CBC and ferritin and FU Blurring of visual image 03/12/2022 Sialolithiasis 12/09/2017 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 Recommended to decrease soda and sugary beverage consumption, increase protein intake with meals (at least 1 portion of protein with each meal) to assist with satiety, increase dietary fiber Recommended at least 150 min/week of moderate intensity exercise. FU in 3mo, will consider cardiac care unit nurse referral once she's recovered from hysterectomy Assessment & Plan (02/13/2023 9:51 AM EST): Order A1c and BMP Discussed re weight reduction options including exercise, life style modifications, diet, referral to forensic specialist. Discussed re lower calorie intake, increase dietary fiber Recurrent major depressive episodes, moderate (C MS/HCC) 12/23/2016 Assessment & Plan (01/14/2025 3:42 PM EDT): Patient feels safe, she tells me that seem to have been worse since after surgery but she is still getting better as her abdominal wound is healing. She will reconnect with counseling on a as needed basis, she has the number. I will follow-up with patient in 3 months Patient feels safe at home and is able to reach out for safety. Resolved Problems Problem Noted Date Diagnosed Date Resolved Date DUB (dysfunctional uterine bleeding) 10/08/2024 01/19/2025 Assessment & Plan (10/08/2024 3:46 PM EDT): Seen by Dr. Funk, had pelvic ultrasound on 09/22/2024 and 09/15/2024 Referred to CARDIOLOGY PHYSICIAN ASSISTANT at [facility], as per Dr. Funk Adjustment disorder with mix ed emotional features 01/12/2018 01/14/2025 Encounters Date Type Department Care Team Description 03/18/2025 Orders Only GENERIC EXTERNAL DATA DEPARTMENT Provider, Generic External Data 01/20/2025 Telephone [facility] Information Management [address] [place] [address] [phone] Iva Howard MD 01/19/2025 Orders Only [address] [phone] Iva Howard MD 01/18/[address] [phone] Iva Howard MD 01/14/2025 10:45 AM EDT Office Visit [address] [phone] Iva Howard MD Encounter for preventive health examination (Primary Dx); Varicose veins of left lower extremity with pain; Sexually transmitted disease counseling; Recurrent major depressive episodes, moderate (CMS/HCC) (HCC); Class 2 obesity due to excess calories without serious comorbidity with body mass index (BMI) of 37.0 to 37.9 in adult; Moderate persistent asthma, unspecified whether complicated; Dietary counseling; Exercise counseling; At high risk for breast cancer 01/14/2025 Travel 01/13/[address] [phone] Iva Howard MD PT 01/13/[address] [phone] Iva Howard MD CHART PREP 01/05/2025 Patient Outreach [address] [phone] Iva Howard MD Pre-visit Planning (SDOH screening completed on 11/05/2024) from Last 3 Months Immunizations Immunization Administration [...] Not on file 07/29 Score 0 08/12/2023 Depression Answer Date Recorded Patient Health Questionnaire-9 Score 6 01/14/2025 Patient Health Questionnaire-9 Score 6 01/14/2025 Last PHQ-9: Questionnaire Data Not on file 1 Housing Stability Answer Date Recorded What is [...] Answer Date Recorded Patient Health Questionnaire-2 Score 2 01/14/2025 Internet Access Answer Date Recorded Internet Access Q1 Yes 11/05/2024 Internet Access Q2 Not on file 11/05/2024 Comments Unknown Intention Date Recorded No desire to become (finding) 1 Sex and Gender Information Value Date Recorded Sex Assigned at Female 01/28/2022 10:19 AM EDT Legal Sex Female 10:19 AM EDT Gender Identity Female 01/28/2022 10:19 AM EDT Sexual Orientation Straight 06/12/2022 10 :38 AM EDT Last Filed Vital Signs Vital Sign Reading Time Taken Comments Blood Pressure 110/82 01/14/2025 10:59 AM EDT Pulse 86 01/14/2025 10:59 AM EDT Temperature 33.3 C (92 F) 01/14/2025 10:59 AM EDT Respiratory Rate 16 01/14/2025 10:59 AM EDT Oxygen Saturation 100% 09/15/2024 10:36 AM EDT Inhaled Oxygen Concentration - - Weight 128 kg (282 lb 12.8 oz) 01/14/2025 10:59 AM EDT Height 185.4 cm (6' 1 ) 01/14/2025 10:59 AM EDT Body Mass Index 37.31 01/14/2025 10:59 AM EDT Plan of Treatment Health Maintenance Due Date Last Done Comments Dental Oral Exam 1994 Dental Prophylaxis 1994 Dental X-Ray: Bitewings 1994 Alcohol/Substance Use Screening 2006 Hepatitis B Vaccines (1 of 3 - 19+ 3-dose series) 2013 Pneumococcal Vaccine: Pediatrics (0 to 5 Years) and At-Risk Patients (6 to 49) Years (1 of 2 - PCV) 2013 Pap Smear 01/24/2024 01/23/2021, 01/23/2021 COVID-19 Vaccine ( - season) 2024 10/02/2021, 08/09/2020, 07/12/2020 Influenza Vaccine (#1) 2024 , 01/19/2018, 04/28/2014, Additional history exists Disability Screening 09/22/2025 09/22/2024 SDOH Screening 11/05/2025 11/05/2024 Depression Screening 01/14/2026 01/14/2025, 01/15/20 25 Family Planning (PISQ) 01/14/2026 01/14/2025 Tobacco Screening 01/14/2026 01/14/2025 Dental X-Ray: Full Mouth 01/17/2026 01/16/2023 Cervical Cancer Screening 01/23/2026 HPV/Cotest 01/23/2026 01/23/2021 Lipid Panel 02/14/2028 02/13/2023 DTaP/Tdap/Td Vaccines [...] Procedure Name Priority Date/Time Associated Diagnosis Comments SARS COV2/INFLUENZA A/B AND RSV RNA QL NAAT Routine 03/18/2025 10:39 PM EST STREP A NUCLEIC ACID Routine 03/18/2025 10:39 PM EST HIV 1/2 ANTIGEN/ANTIBODY, FOURTH GENERATION W/RFL Routine [...] Recently Relevant to Health Maintenance Results * Strep A Nucleic Acid (03/18/2025 10:39 PM EST) IDNOW SERIAL# [id number] [facility] Strep A Nucleic Acid Negative Negative [facility] Comment:All test results mus t be correlated with clinical findings.This test has not been evaluated for monitoring treatment ofinfection.Additional follow-up testing using the culture method isrequired if the result is negative and clinical symptomspersist, or in the event of an acute rheumatic feveroutbreak. 03/18/2025 10:3 9 PM EST 03/18/2025 10:42 PM EST us Generic External Data Provider LAB MICROBIOLOGY - GENERAL ORDERABLES Final Result [facility] [address] [place] [phone] * SARS-CoV-2 RNA, Influenza A/B, and RSV RNA, Ql NAAT (03/18/2025 10:39 PM EST) Influenza A PCR NEGATIVE Negative [facility] Influenza B PCR NEGATIVE Negative [facility] Resp Syncy Virus RNA Qual PCR NEGATIVE Negative [facility] SARS COV2 PCR NEGATIVE Negative [facility] Comment:All test results mus t be correlated with clinical findings.Negative results do not preclude SARS-CoV2, influenza Avirus, influenza B virus and/or RSV infectionand should not be used as the sole basis for treatment orother patient management decisions. Negative results must becombined with clinical observations, patient history, andepidemiological information.This test has not been evaluated for monitoring treatment ofinfection.This test has been authorized by the FDA under an EmergencyUse Authorization (EUA) for use by authorized laboratories.Testing performed on the [employer] GeneXpert utilizingreal-time RT-PCR.All SARS CoV2 and positive influenza A/B results arereported to [facility]. 03/18/2025 10:3 9 PM EST 03/18/2025 10:42 PM EST us Generic External Data Provider LAB MICROBIOLOGY - GENERAL ORDERABLES Final Result Performing Organization Address [facility] Co de Phone Number [facility] [address] [place] [phone] * HIV-1/2 Antigen and Antibodies, Fourth Generation, with Reflexes (03/18/2023 9:47 AM EST) [facility] HIV AB/AG Nonreactive Nonreactive [facility] Comment:HIV-1 p24 Ag and/or HIV-1/HIV-2 Ab not detected.A test result that is nonreactive does not exclude thepossibility of exposure to or infection with HIV-1 and/orHIV-2. Nonreactive results in this assay for individualswith prior exposure to HIV-1 and/or HIV-2 may be due toantigen and antibody levels that are below the limit ofdetection of this assay.The [employer] HIV Ag/Ab Combo assay result andsupplemental assay results should be interpreted inconjunction with the patient's clinical presentation,history and other laboratory results. If the results areinconsistent with clinical evidence, additional testing issuggested to confirm the result. Blood Venous blood specimen / Unknown 03/18/2023 9:47 AM EST 03/18/2023 11:16 AM EST us Iva Howard MD LAB BLOOD ORDERABLES Fin al Result Performing Organization Address [facility]/ZIP Co de Phone Number [facility] [address] [place] [phone] * (ABNORMAL) Lipid Panel with Reflex to Direct LDL (02/13/2023 9:58 AM EST) Triglycerides 111 <150 mg/dL [facility] Comment:Desirable Triglyceri de: less than 150 mg/dLBorderline High Triglyceride 150-199 mg/dLHigh Triglyceride: 200-499 mg/dLVery High Triglyceride: greater than or equal to 5OO mg/dL Cholesterol 186 <200 mg/dL [facility] Comment:Desirable Cholestero l: less than 200 mg/dLBorderline High Cholesterol: 200-239 mg/dLHigh Cholesterol: greater than 239 mg/dL LDL Cholesterol Calculated 118(H) <100 mg/dL [facility] Comment:Desirable LDL: less than 100 mg/dLNear Optimal/Above Optimal LDL: 110- 129 mg/dLBorderline High LDL: 130-159 mg/dLHigh LDL: 160-189 mg/dLVery High LDL: greater than or equal to 190 mg/dL HDL Cholesterol 46 >40 mg/dL [facility] Comment:Desirable HDL: great er than 40 mg/dL Note: This HDL assay may give artificially low results in patients with liver disease. Blood 02/13/2023 9:58 AM EST 02/13/2023 11:01 AM EST us Iva Howard MD LAB BLOOD ORDERABLES Fin al Result [facility] [address] [place] [phone] * Hepatitis Panel, General (02/13/2023 9:58 AM EST) Hepatitis A IgM Nonreactive Nonreactive [facility] Comment:IgM antibodies to VALDERRAMA V not detected; does not exclude earlyacute or recovered HAV infection. ~Hepatitis B Surface Antibody NONREACTIVE Nonreactive [facility] Comment:Nonreactive: < 8.00 mIU/mL Hepatitis B Core Antibody Nonreactive Nonreactive [facility] Hepatitis C Antibody Nonreactive Nonreactive [facility] Comment:Antibodies to HCV no t detected; does not exclude early acuteHCV infection. Hepatitis B Surface Ag Negative Negative [facility] Blood 02/13/2023 9:58 AM EST 02/13/2023 11:01 AM EST Iva Howard MD LAB BLOOD ORDERABLES Fin al Result [facility] [address] [place] [phone] * Hm Pap Smear (01/23/2021) Pap Negative for intraephithelial lesion or malignancy Negative for intraephithelial lesion or malignancy, Other HPV Undetected Undetected, Indeterminate, Quantitative, Not Detected Historical Provider HEALTH MAINTENANCE Edited Result - Final * Pap Smear (01/23/2021 12:00 AM EDT) Swab Historical Provider LAB CYTOLOGY ORDERABLES F inal Result Performing Organization Address City/[facility]/ZIP Co de Phone Number [facility] [address] [place] [address] from Last 3 Months or Most Recently Relevant to Health Maintenance Insurance [facility] C[place] ST[place] AD[employer] INSURANCE Care Teams Spinning Mule Operator Relationship Specialty Start Date End Date Iva Howard MD [address] [place] [phone] PCP - General Family Medicine 12/23/17
--- OUTSIDE RECORDS SUMMARY | 2025-03-19 00:05 | XMS_ITS | Encounter Summary ---
Author Organization [email or web address] Address [address] [place] [address] 7 [place] [address] Care Team Providers Care Manager Switch Name Role Phone Iva Howard MD Primary Care Provider + Encounter Details Date Type Department Care Team (Late st Contact Info) Description 03/18/2025 Orders Only GENERIC EXTERNAL DATA [...] Procedure Name Priority Date/Time Associated Diagnosis Comments STREP A NUCLEIC ACID Routine 03/18/2025 10:39 PM EST SARS COV2/INFLUENZA A/B AND RSV RNA QL NAAT Routine 03/18/2025 10:39 PM EST documented in this encounter Results * SARS-CoV-2 RNA, Influenza A/B, and RSV RNA, Ql NAAT (03/18/2025 10:39 PM EST) Influenza A PCR NEGATIVE Negative [facility] Influenza B PCR NEGATIVE Negative [facility] Resp Syncy Virus RNA Qual PCR NEGATIVE Negative [facility] SARS COV2 PCR NEGATIVE Negative [facility] Comment:All test results mus t [...] use by authorized laboratories.Testing performed on the [employer] GeneXpert utilizingreal-time RT-PCR.All SARS CoV2 and positive influenza A/B results arereported to [facility]. 03/18/2025 10:3 9 PM EST 03/18/2025 10:42 PM EST Generic External Data Provider LAB MICROBIOLOGY - GENERAL ORDERABLES Final Result Performing Organization Address [facility] Co de Phone Number [facility] [address] [place] [phone] * Strep A Nucleic Acid (03/18/2025 10:39 PM EST) IDNOW SERIAL# [id number] [facility] Strep A Nucleic Acid Negative Negative [facility] Comment:All test results mus t be correlated with clinical findings.This test has not been evaluated for monitoring treatment ofinfection.Additional follow-up testing using the culture method isrequired if the result is negative and clinical symptomspersist, or in the event of an acute rheumatic feveroutbreak. 03/18/2025 10:3 9 PM EST 03/18/2025 10:42 PM EST Generic External Data Provider LAB MICROBIOLOGY - GENERAL ORDERABLES Final Result Performing Organization Address [facility] de Phone Number [facility] [address] [place] [phone] documented in this encounter Visit Diagnoses Not on filedocumented in this encounter Additional Health Concerns Assessment Noted Time PHQ-9 Depression Total Score: 6 01/15/20 25 11:44 AM EDT documented as of this encounter Care Teams Manager Switch Relationship Specialty Start Date End Date Iva Howard MD [address] [place] [phone] PCP - General Family Medicine 12/23/17 documented as of this encounter
--- OUTSIDE RECORDS SUMMARY | 2025-03-19 00:05 | XMS_ITS | Encounter Summary ---
Author Organization [employer] Address [address] [place] [phone] Care Team Providers Care Head Turning Machine Operator Name Role Phone Iva Howard MD Primary Care Provider + Reason for Visit * Reason Onset Date Comments unable to post insurance 06/01/2024 Encounter Details Date Type Department Care Team ([facility] st Contact Info) Description 06/01/2024 Telephone [facility] [address] [place] [address] Andrew Damon DDS [address] [place] [address] unable to post insurance Social History Tobacco [...] on filedocumented in this encounter Care Teams Head Turning Machine Operator Relationship Specialty Start Date End Date Iva Howard MD [address] [place] [phone] PCP - General Family Medicine 12/23/17 documented as of this encounter
--- OUTSIDE RECORDS SUMMARY | 2025-03-19 00:05 | XMS_ITS ---
Author Organization [employer] Address [address] [place] [address] [place] [address] Care Team Providers Care Children'S Counselor Name Role Phone Iva Howard MD Primary Care Provider + CM Complex Status:Outreach In Progress (Enrolling) Start date:08/02/2024 Enrollment reason:ADT Feed Overview ADT- [facility] ED 07/30/24 Case Team Name Relationship Phone Katie Rao RN(Responsible Staff) Registered Nurse [phone] Continued Care and Services Coordination
--- OUTSIDE RECORDS SUMMARY | 2025-03-19 00:05 | XMS_ITS ---
Author Organization [employer] Address [address] [place] [address] [place] [address] Care Team Providers Care Cementer Machine Joiner Name Role Phone Iva Howard MD Primary Care Provider + CHW Complex Status:Outreach In Progress (Enrolling) Start date:08/02/2024 Enrollment reason:ADT Feed Overview ADT- [facility] ED 07/30/24. Please outreach for enrollment. Case Team Name Relationship Phone Chyna Fraser(Responsible Staff) [phone] Continued Care and Services Coordination
[2025-03-19 00:44] VITALS: BP 144/67; PULSE 88; RESP 15; TEMP 36.7; O2SAT 99
--- NOTE | 2025-03-19 00:59 | PC.NURSE ---
pt a&ox4, respirations even and unlabored. pt reports onset of left sided throat pain, body aches and chills after giving partner oral sex. pt reports her partner possibly was positive for an an STD and she would also like to be tested. pt reports taking tylenol and ibuprofen around 5pm.
--- NOTE | 2025-03-19 01:50 | ED.GENADULT ---
HPI - General Adult General Chief complaint: General Medical Stated complaint: in contact w/strep and std + Time Seen by Provider: 03/19/25 01:49 Source: patient Mode of arrival: ambulatory Limitations: no limitations History of Present Illness ED Provider: Fred GARCIA HPI narrative: The patient is a 29-year-old female who presents with a sore throat that began Friday evening, the day after an oral sexual encounter (no vaginal intercourse) with a male partner whom she has been sexually active with for the past year. The partner informed the patient he was recently evaluated at a clinic for a ?lump? near his genital area and reported he received an antibiotic, but declined to disclose the exact diagnosis or name of the medication to the patient. The patient reports when engaged in the sexual activity she did not not note any skin lesions or urethral drainage. The patient describes the throat pain as soreness and inflammation localized to the left side of the posterior pharynx. Patient reports she has suffered from multiple previous episodes of strep throat and reports these symptoms follow her typical pattern of sore throat with fatigue/malaise, myalgias, and fever. Patient reports over the past 2 days she had a fever with T-max 104 degrees, which improves with Tylenol. She denies cough, dyspnea, diarrhea, dysuria, hematuria, or vaginal discharge. The patient's swabs today were negative for group A streptococcus, COVID-19, RSV, and influenza. Related Data Previous Rx's ?Medication ?Instructions ?Recorded ibuprofen 800 mg tablet 800 mg PO Q8H PRN pain #30 tabs 04/16/20 naproxen 500 mg tablet 500 mg PO BID #20 tabs 02/25/23 ondansetron 4 mg disintegrating 4 mg PO Q8H PRN nausea and 02/28/23 tablet vomiting #20 tabs jsjerolygh-dunrpfjqgegyj-nbuwigxd 1 tab PO Q6H PRN haeadace #20 tabs 10/04/23 50 mg-325 mg-40 mg tablet epinephrine 0.3 mg/0.3 mL 0.3 mg (0.3 mL) IM Q10M PRN 08/04/24 injection, auto-injector (EpiPen) anaphylaxis #2 ea medroxyprogesterone 5 mg tablet 15 mg (3 x 5 mg) PO DAILY 90 days 10/06/24 (Provera) #270 tabs doxycycline hyclate 100 mg tablet 100 mg PO BID #14 tabs 03/19/25 Allergies Allergy/AdvReac Type Severity Reaction Status Date / Time sesame seed Allergy Anaphylaxis Verified 03/18/25 21:45 Review of Systems Review of Systems: Yes all other systems are reviewed and are negative [facility] Past Medical History Medical History Preeclampsia Hypothyroid HPV in female Ovarian cyst Social History Social History Alcohol intake: current Alcohol intake frequency: does not drink Smoked in Last 30 Days: No Use of substances other than those prescribed or required for medical reasons: No Substance Use Type: Marijuana Advance Directives: No Advance Directives Information Provided: No Do you have a plan to hurt others: No Plan Patient : No Physical Exam ED Vital Signs: Vital Signs - 24 hr 03/18/25 21:43 03/19/25 00:44 Temperature 98 F 98.1 F Pulse Rate 73 88 Respiratory Rate 18 15 Blood Pressure 140/69 H 144/67 H Pulse Oximetry 100 99 Oxygen Delivery Method Room Air Room Air BMI result Body Mass Index 37.2 CONSTITUTIONAL: The patient appears non-toxic, well nourished and in no acute distress. Vital signs as documented. HEAD: Atraumatic, normocephalic. EYES: EOMs grossly intact, pupils equal, conjunctiva clear, no exudate. ENT: Nares patent, no discharge. Airway patent, no audible stridor, visible mucosa is pink and moist without noted lesions. Posterior pharynx shows midline nonedematous uvula, the bilateral tonsils have milky white exudate noted, greater on the left. NECK: Trachea is midline, no obvious masses or gross abnormalities. CHEST: Symmetric movement, normal appearance. LUNGS: LS present and CTAB, no w/r/r. Non-labored work of breathing. CARDIAC: Regular Rhythm, S1/S2 appreciated, no murmurs, rubs or gallops. ABDOMEN: Abdomen soft and non-tender x4 quadrants, no palpable masses or organomegaly. : Deferred. EXTREMITIES: Normal tone, moves all extremities spontaneously without reported pain. No obvious acute injury or deformity noted. NEURO: Alert and oriented x3, CN II-XII appear grossly intact. Cerebellar Functioning grossly intact. No obvious sensory or motor deficits. Speech clear and appropriate. PSYCH: normal affect, appropriate eye contact, fluid speech, with appropriate response to questioning. No reported suicidality or homicidality. SKIN: Warm, dry, color appropriate, normal turgor. No rashes noted. Medical Decision Making Medical Decision Making [facility] Narrative: 2:51 AM 03/19/2025 (Kassy GARCIA): The patient is a 29-year-old female who presents with a sore throat that began Friday evening, the day after an oral sexual encounter (no vaginal intercourse) with a male partner whom she has been sexually active with for the past year. The partner informed the patient he was recently evaluated at a clinic for a ?lump? near his genital area and reported he received an antibiotic, but declined to disclose the exact diagnosis or name of the medication to the patient. The patient reports when engaged in the sexual activity she did not not note any skin lesions or urethral drainage. The patient describes the throat pain as soreness and inflammation localized to the left side of the posterior pharynx. Patient reports she has suffered from multiple previous episodes of strep throat and reports these symptoms follow her typical pattern of sore throat with fatigue/malaise, myalgias, and fever. Patient reports over the past 2 days she had a fever with T-max 104 degrees, which improves with Tylenol. She denies cough, dyspnea, diarrhea, dysuria, hematuria, or vaginal discharge. The patient's swabs today were negative for group A streptococcus, COVID-19, RSV, and influenza. On exam she has visible milky white exudate noted to the bilateral tonsils, greater on the left, consistent with possible gonorrheal/chlamydial pharyngitis. Due to the patient's reported exposure, and throat findings, patient will be treated with Rocephin, and discharged with a 7 day course of doxycycline to cover for gonorrhea and chlamydia. Patient has been educated about the need to abstain from any sexual intercourse until obtaining a negative retest which can be obtained 1 week after completion of antibiotics. Admission/Observation Consideration of admission/observation: Escalation of care including admission/observation considered Lab Data [facility] Lab Attestation statement: I reviewed the patient's lab results. Labs: Lab Results 03/18/25 Range/Units 22:39 Influenza Type A (PCR) NEGATIVE (Negative) Influenza Type B (PCR) NEGATIVE (Negative) RSV RNA Qual (PCR) NEGATIVE (Negative) SARS-CoV-2 RNA (RT-PCR) NEGATIVE (Negative) S. pyogenes GrpA ELIJAH Negative (Negative) Discharge Plan Discharge Clinical Impression: Pharyngitis, chlamydial, Pharyngitis, gonococcal Patient Disposition: Home, Self-Care Instructions: Chlamydia (ED), Gonorrhea (ED), Pharyngitis (ED) Additional Instructions: Thank you for choosing [facility]'s Emergency Department for your care today. Thankfully your swabs today were negative for strep throat, COVID, RSV, and flu. At this time there is no indication for admission to the hospital or continued ED observation, and it is safe to discharge you home. Unfortunately however, your exam today is concerning for gonococcal/chlamydial pharyngitis. We have treated you with Rocephin, however it is extremely important that you continue taking doxycycline twice daily for the next 7 days to fully eradicate the infection. You must abstain from any sexual intercourse until you obtain a negative follow up test, which can be 1st attempted 1 week after completion of the antibiotics. You should take alternating (staggered) doses of ibuprofen 600mg and Tylenol 1000mg every 4 hours as needed for any additional pain or fever. Please stay well hydrated and get plenty of rest. Please follow up with your primary care physician for re-evaluation, additional management of your symptoms, and continued preventative care. If you do not have a primary care physician, please call the [facility] at [phone] to establish a new primary care physician. While waiting to establish your new primary care physician, you can call our Walk-in Care Clinic at [phone] for non-emergency needs. Please return to the emergency department if you develop a severe or sudden change in your symptoms, a fever over 100.4 that does not improve with Tylenol or Ibuprofen, recurrent vomiting, or any other new or worsening symptoms or concerns. Prescriptions: New doxycycline hyclate 100 mg tablet 100 mg PO BID Qty: 14 0RF No Action ibuprofen 800 mg tablet 800 mg PO Q8H PRN (Reason: pain) Qty: 30 0RF ondansetron 4 mg tablet,disintegrating 4 mg PO Q8H PRN (Reason: nausea and vomiting) Qty: 20 0RF ikyqbvjnoi-jbqwcppdbnoqy-srfi 50-325-40 mg tablet 1 tab PO Q6H PRN (Reason: haeadace) Qty: 20 0RF naproxen 500 mg tablet 500 mg PO BID Qty: 20 0RF epinephrine [EpiPen] 0.3 mg/0.3 mL auto-injector 0.3 mg IM Q10M PRN (Reason: anaphylaxis) Qty: 2 0RF Rx Instructions: for 2 doses medroxyprogesterone [Provera] 5 mg tablet 15 mg PO DAILY 90 Days Qty: 270 0RF Referrals: Iva Howard MD [Primary Care Provider, Internal Medicine] Clinical Impression: Pharyngitis, gonococcal; Pharyngitis, chlamydial Print Language: Prydeinig
[2025-03-19 03:44] VITALS: BP 133/87; PULSE 77; RESP 19; TEMP 36.4; O2SAT 99
[2025-03-23 08:58] LABS: C. Trachomatis RNA TMA, Throat NOT DETECTED; N. gonorrhoeae RNA TMA, Throat DETECTED
== END 2025-03-19 03:14 | disposition home or self-care (01) ==
PROVIDERS: Physician Assistant; Emergency Provider Emergency Medicine; PCP Internal Medicine
DX: A54.5 Gonococcal pharyngitis (principal); Z20.2 Contact with and (suspected) exposure to infections with a predominantly sexual mode of transmission; Z03.818 Encounter for observation for suspected exposure to other biological agents ruled out; J02.9 Acute pharyngitis, unspecified; R53.83 Other fatigue; M79.10 Myalgia, unspecified site; R50.9 Fever, unspecified
CPT/HCPCS: 87491; 87591; 87637; 87651; 96372; 99284; J0696

== ENCOUNTER 2025-03-29 12:50 | Emergency (ER) | payer MEDICAID, SELFPAY ==
[2025-03-29 12:57] VITALS: BP 134/76; BP 143/88; PULSE 77; PULSE 80; RESP 16; TEMP 36.6; O2SAT 97; O2SAT 99; BMI 33.4
--- NOTE | 2025-03-29 13:11 | ED_ITS ---
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 She administered her own EpiPen. EMS picked her up note is him as were improved she was not given any medications. At this time she feels some hot flashes but otherwise has no more swelling. She has 1 EpiPen left at home with no refills complaint: allergic reaction Onset (ago): hour(s) (Prior to arrival) Exposure: food Symptoms: itching, facial swelling, lip swelling, tongue swelling and other Severity: similar to previous episodes Treatment prior to arrival: epinephrine Previous Allergic Reaction History: prior ED visit(s) and anaphylaxis Related Data Previous Rx's ?Medication ?Instructions ?Recorded ibuprofen 800 mg tablet 800 mg PO Q8H PRN pain #30 t abs 04/16/20 naproxen 500 mg tablet 500 mg PO BID #20 tabs 02/25 ondansetron 4 mg disintegrating 4 mg PO Q8H PRN nausea and 02/28/23 tablet vomiting #20 tabs bipkziejse-uduxikhaayvnf-syosxupe 1 tab PO Q6H PRN hae adace #20 tabs 10/04/23 50 mg-325 mg-40 mg tablet epinephrine 0.3 mg/0.3 mL 0.3 mg (0.3 mL) IM Q10M PRN 08/04/24 injection, auto-injector (EpiPen) anaphylaxis #2 ea medroxyprogesterone 5 mg tablet 15 mg (3 x 5 mg) PO DA BETO 90 days 10/06/24 (Provera) #270 tabs doxycycline hyclate 100 mg tablet 100 mg PO BID #14 ta bs 03/19/25 epinephrine 0.3 mg/0.3 mL 0.3 mg (0.3 mL) IM Q10M PRN 03/29/25 injection, auto-injector anaphylaxis #2 ea Allergies Allergy/AdvReac Type Severity Reaction Status Date / Time sesame seed Allergy Anaphylaxis Verified 03/29/25 13:01 Review of Systems Review of Systems: Yes all other systems are reviewed and are negative [facility] Past Medical History Attestation statement: The following information was validated with the patient. Source: old records reviewed Medical History Preeclampsia Hypothyroid HPV in female Ovarian cyst Social History Social History Alcohol intake: current Alcohol intake frequency: does not drink Substance Use Type: Marijuana Advance Directives: No Advance Directives Information Provided: Yes Physical Exam ED Vital Signs: Vital Signs - 24 hr 03/29/25 12:57 03/29/25 14:25 Temperature 98 F 98.3 F Pulse Rate 77 71 Respiratory Rate 16 16 Blood Pressure 143/88 H 120/59 L Pulse Oximetry 97 96 Oxygen Delivery Method Room Air Room Air BMI result Body Mass Index 33.4 Appearance: Alert. Oriented X3. No acute distress. Eyes: Pupils equal, round and reactive to light. ENT: Pharynx normal. No angioedema Neck: Normal inspection. Neck supple. CVS: Normal heart rate and rhythm. Pulses normal. Respiratory: No respiratory distress. Breath sounds normal. Abdomen: Soft and nontender. Skin: Skin warm and dry. Normal skin color. Normal skin turgor. Extremities: No lower extremity edema. No calf ttp Neuro: Oriented X 3. No motor deficit. No sensory deficit. CN2-12 intact Course Course Course Narrative: 4:41 PM 03/29/2025 (SANDRA HARRIS): Stable for DC no symptoms Medications Administered Discontinued Medications Generic Name Dose Route Start Last Admin Trade Name Arunq PRN Reason Stop Dose Admin Diphenhydramine HCl 25 mg 03/29/25 13:00 03/29/25 13:07 Diphenhydramine Hcl 50 Mg/Ml Vial IVPUSH 03/29/25 13:01 25 mg ONCE ONE Administration Famotidine 20 mg 03/29/25 13:00 03/29/25 13:06 Famotidine/Pf 20 Mg/2 Ml Vial IVPUSH 03/29/25 13:01 20 mg ONCE ONE Administration Methylprednisolone Sodium Succinate 60 mg 03/29/25 13:00 03/29/25 13:06 Methylprednisolone Sod Succ 125 Mg/2 Ml Vial IVPUSH 03/29/25 13:01 60 mg ONCE ONE Administration Medical Decision Making Medical Decision Making [facility] Narrative: 2-year-old female with sesame seed anaphylaxis history who ate and everything vagal she developed airway swelling and scratchy throat she self administered an EpiPen and she is overall markedly improved. I see no angioedema or unstable vital signs on exam. At this time I will dose with steroids Pepcid and Benadryl we will monitor and DC home with EpiPen if she does well Differential Diagnosis Differential Diagnoses: The differential diagnosis associated with the presentation includes Resolved anaphylaxis Admission/Observation Consideration of admission/observation: Escalation of care including admission/observation considered We will monitor for the next 1-2 hours if she is improved we will DC home with EpiPen Independent Historian Clinical information obtained from an independent historian. History obtained from or confirmed by: EMS External Record Review External record reviewed: Outpatient record Prescription Management I considered prescription management with: Other Discharge Plan Discharge Clinical Impression: Anaphylaxis Qualifiers: Encounter type: initial encounter Qualified Code(s): T78.2XXA - Anaphylactic sh ock, unspecified, initial encounter Patient Disposition: Home, Self-Care Instructions: General Allergic Reaction (ED) Additional Instructions: Return for any worsening symptoms or concerns Obviously throat your bagels away Carry EpiPen with you at all time Prescriptions: New epinephrine 0.3 mg/0.3 mL auto-injector 0.3 mg IM Q10M PRN (Reason: anaphylaxis) Qty: 2 1RF Rx Instructions: for 2 doses No Action ibuprofen 800 mg tablet 800 mg PO Q8H PRN (Reason: pain) Qty: 30 0RF ondansetron 4 mg tablet,disintegrating 4 mg PO Q8H PRN (Reason: nausea and vomiting) Qty: 20 0RF kyxadwxhwk-uexdmqzigukzl-flbf 50-325-40 mg tablet 1 tab PO Q6H PRN (Reason: haeadace) Qty: 20 0RF doxycycline hyclate 100 mg tablet 100 mg PO BID Qty: 14 0RF naproxen 500 mg tablet 500 mg PO BID Qty: 20 0RF epinephrine [EpiPen] 0.3 mg/0.3 mL auto-injector 0.3 mg IM Q10M PRN (Reason: anaphylaxis) Qty: 2 0RF Rx Instructions: for 2 doses medroxyprogesterone [Provera] 5 mg tablet 15 mg PO DAILY 90 Days Qty: 270 0RF Print Language: Qatari
[2025-03-29 14:25] VITALS: BP 120/59; PULSE 71; RESP 16; TEMP 36.8; O2SAT 96
[2025-03-29 17:02] VITALS: BP 120/59; PULSE 71; RESP 16; TEMP 36.8; O2SAT 96
--- OUTSIDE RECORDS SUMMARY | 2025-03-29 17:56 | XMS_ITS | Encounter Summary ---
Author Organization [employer] Address [address] [place] [address] Care Team Providers Care Fitting Room Supervisor Name Role Phone Iva Howard MD Primary Care Provider + Reason for Visit * Reason Onset Date Comments unable to post insurance 06/01/2024 Encounter Details Date Type Department Care Team ([facility] st Contact Info) Description 06/01/2024 Telephone [facility] [address] [place] [address] Andrew Damon DDS [address] [place] [address] unable to post insurance Social History Tobacco [...] with others, in a hotel, in a care home, living outside on the street, on [...] on filedocumented in this encounter Care Teams Fitting Room Supervisor Relationship Specialty Start Date End Date Iva Howard MD [address] [place] [id number] PCP - General Family Medicine 12/23/17 documented as of this encounter
--- OUTSIDE RECORDS SUMMARY | 2025-03-29 17:56 | XMS_ITS | Encounter Summary ---
Author Organization [employer] Address [address] [place] [address] [address] [place] [address] Care Team Providers Care Ceramics Machine Operator Name Role Phone Iva Howard MD Primary Care Provider + Encounter Details Date Type Department Care Team ([facility] st Contact Info) Description 03/23/2025 Results Follow-Up [facility] MEDICINE [address] [place], [place] [phone] Harjit Sarkar MD [address] [place] [address] Chlamydia/N. Gonorrhoeae RNA, TMA, Throat Social History Tobacco Use Types Packs/Day Years [...] documented as of this encounter Care Teams Ceramics Machine Operator Relationship Specialty Start Date End Date Iva Howard MD [address] [place] [id number] PCP - General Family Medicine 12/23/17 documented as of this encounter
--- OUTSIDE RECORDS SUMMARY | 2025-03-29 17:56 | XMS_ITS | Encounter Summary ---
Author Organization [employer] Address [address] [place] [address] [address], [place] [address] Care Team Providers Care Pattern Marking Supervisor Name Role Phone Iva Howard MD Primary Care Provider + Reason for Visit * Reason Onset Date Comments PT 1 05/20/2023 Encounter Details Date Type Department Care Team ([facility] Contact Info) Description 05/20/2023 Telephone [facility] MEDICINE [address] [place], [place] [phone] Iva Howard MD [address] [place], [place] [phone] PT 1 Social History Tobacco Use Types [...] different addresses [facility] and [place] in chart which is what was used needs to update address with and Health Center if different * Telephone Encounter - Reno Fraser - 05/20/2023 9:45 AM EST PT1 needed Date: N/A Time: N/A Visits: 3 times monthly Address: [address] [place] [address] Facility: [address] Wheel Chair: No Demurrage Clerk Needed: Yes 1 PT1 needed Date: N/A Time: N/A Visits: 3 times monthly Address: [address] [place] [address] Facility: [address] [place] [address] Wheel Chair: No Demurrage Clerk Needed: Yes 1 documented in this encounter Plan of Treatment Not on file documented as of this encounter Visit Diagnoses Not on filedocumented in this encounter Care Teams Pattern Marking Supervisor Relationship Specialty Start Date End Date Iva Howard MD [address] [place] [id number] PCP - General Family Medicine 12/23/17 Morenita Vargas Pest Control Chemical Technician 03/06/23 06/05/23 documented as of this encounter
--- OUTSIDE RECORDS SUMMARY | 2025-03-29 17:56 | XMS_ITS ---
Author Organization [email or web address] Address [address] [place] [address] [place] [address] Care Team Providers Care Christmas Tree Contractor Name Role Phone Iva Howard MD Primary Care Provider + CHW Complex Status:Outreach In Progress (Enrolling) Start date:08/02/2024 Enrollment reason:ADT Feed Overview ADT- [facility] ED 07/30/24. Please outreach for enrollment. Case Team Name Relationship Phone Chyna Fraser(Responsible Staff) [phone] Continued Care and Services Coordination
--- OUTSIDE RECORDS SUMMARY | 2025-03-29 17:56 | XMS_ITS | Encounter Summary ---
Author Organization [employer] Address [address] [facility] [address] [place] [address] Care Team Providers Care Tea Bag Machine Tender Name Role Phone Iva Howard MD Primary Care Provider + Encounter Details Date Type Department Care Team (Late st Contact Info) Description 03/04/2023 Orders Only [facility] MEDICINE [address] [place], [place] [phone] Nichole Ralph RN [address] [place], [place] [phone] Social History Tobacco Use Types Packs/Day Years [...] Provider LAB CYTOLOGY ORDERABLES F inal Result [facility] [address] [place] [address] documented in this encounter Visit Diagnoses Not on filedocumented in this encounter Care Teams Tea Bag Machine Tender Relationship Specialty Start Date End Date Iva Howard MD [address] [place] [address] PCP - General Family Medicine 12/23/17 Morenita Vargas Bus System Operator 03/06/23 06/05/23 documented as of this encounter
--- OUTSIDE RECORDS SUMMARY | 2025-03-29 17:56 | XMS_ITS ---
Author Organization [employer] Address [address] [place] [address] [place] [address] Care Team Providers Care Coagulator Name Role Phone Iva Howard MD Primary Care Provider + CM Complex Status:Outreach In Progress (Enrolling) Start date:08/02/2024 Enrollment reason:ADT Feed Overview ADT- [facility] ED 07/30/24 Case Team Name Relationship Phone Katie Rao RN(Responsible Staff) Registered Nurse [phone] Continued Care and Services Coordination
--- OUTSIDE RECORDS SUMMARY | 2025-03-29 17:56 | XMS_ITS | Clinical Summary ---
Author Organization [employer] Address [address] [place] [address] [place], [place] [address] Care Team Providers Care Research Program Assistant Name Role Phone Iva Howard MD Primary [...] Once per day. 2 Active sodium chloride ([facility] Nasal [place]) 0.65 % nasal sprayIndications :Viral syndrome 1-2 [...] this time. She is aware of our [facility] building STD screening services Assessment & [...] up to date, will obtain record from [facility] next one due 2024 Mammogram will [...] intensity exercise. FU in 3mo, will consider handbag designer referral once she's recovered from hysterectomy Assessment & Plan (02/13/2023 9:51 AM EST): Order A1c and BMP Discussed re weight reduction options including exercise, life style modifications, diet, referral to beauty specialist. Discussed re lower calorie intake, increase [...] ultrasound on 09/22/2024 and 09/15/2024 Referred to [facility] at [facility], as per Dr. 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 Gonorrhoeae RNA, TMA, Throat 03/21/2025 Patient Outreach [address] [address] Iva Howard MD 03/19/2025 Orders Only GENERIC EXTERNAL DATA DEPARTMENT Provider, Generic External Data 03/18/2025 Orders Only GENERIC EXTERNAL DATA DEPARTMENT Provider, Generic External Data 01/20/2025 Telephone [facility] [address] [place] [address] [phone] Iva Howard MD 01/19/2025 Orders Only [address] [address] Iva Howard MD 01/18/[address] [address] Iva Howard MD 01/14/2025 10:45 AM EDT Office Visit [address] [address] Iva Howard MD Encounter for preventive health [...] for breast cancer 01/14/2025 Travel 01/13/[address] [address] Iva Howard MD PT 01/13/2025 Telephone [facility] [address] [place] [address] Iva Howard MD CHART PREP 01/05/2025 Patient Outreach [facility] [address] [place] [address] Iva Howard MD Pre-visit Planning ([facility] screening completed on 11/05/2024) from Last 3 [...] Smear 01/24/2024 01/23/2021, 01/23/2021 COVID-19 Vaccine ( season) 2024 10/02/2021, 08/09/2020, 07/12/2020 Influenza Vaccine (#1) 2024 , 01/19/2018, 04/28/2014, Additional history exists Disability Screening 09/22/2025 09/22/2024 SDOH Screening 11/05/2025 11/05/2024 Depression Screening 01/14/2026 01/14/2025, 01/15/20 Family Planning (PISQ) 01/14/2026 01/14/2025 Tobacco Screening [...] Procedure Name Priority Date/Time Associated Diagnosis Comments CHLAMYDIA/N. GONORRHOEAE RNA, TMA, THROAT Routine 03/19/2025 3:31 AM EST SARS COV2/INFLUENZA A/B AND RSV RNA [...] Relevant to Health Maintenance Results * (ABNORMAL) Chlamydia/N. Gonorrhoeae RNA, TMA, Throat (03/19/2025 3:31 AM EST) C. Trachomatis RNA TMA, Throat NOT DETECTED [facility] N. gonorrhoeae RNA TMA, Throat DETECTED(A) [facility] Comment:REFERENCE RANGE: NOT DETECTEDMethodology: Agronomy Specialist Mediated Amplification (TMA) to detect RNA.The analytical performance characteristics of this assayhave been determined by [employer] The modificationshave not been cleared or approved by the FDA. This assay hasbeen validated pursuant to the CLIA regulations and is usedfor clinical purposes.For additional information, please refer tohttps://education.WebSideStory/faq/SUH438(This link is being provided for informational/educationalpurposes only.)THIS TEST WAS PERFORMED AT:[employer] [id number] [id number] MATA MD,PHD,CARMELINA 03/19/2025 3:31 AM EST 03/19/2025 3:36 AM EST Generic External Data Provider LAB MICROBIOLOGY - GENERAL ORDERABLES Final Result Performing Organization Address [facility] Co de Phone Number [facility] [address] [place] [phone] * Strep A Nucleic Acid (03/18/2025 10:39 PM EST) [employer]NOW SERIAL# [id number] [facility] Strep A Nucleic Acid Negative Negative [facility] Comment:All test results mus t [...] GENERAL ORDERABLES Final Result Performing Organization Address [facility] Phone Number [facility] [address] [place] [phone] * SARS-CoV-2 RNA, Influenza A/B, and RSV RNA, Ql NAAT (03/18/2025 10:39 PM EST) Influenza A PCR NEGATIVE Negative [facility] Influenza B PCR NEGATIVE Negative [facility] Resp Syncy Virus RNA Qual PCR NEGATIVE Negative [facility] SARS COV2 PCR NEGATIVE Negative [facility] Comment:All test results mus t [...] use by authorized laboratories.Testing performed on the [employer] GeneXpert utilizingreal-time RT-PCR.All SARS CoV2 and positive influenza A/B results arereported to [facility]. 03/18/2025 10:3 9 PM EST 03/18/2025 10:42 PM EST us Generic External Data Provider LAB MICROBIOLOGY - GENERAL ORDERABLES Final Result Performing Organization Address [facility] Co de Phone Number [facility] [address] [place] [address] [phone] * HIV-1/2 Antigen and Antibodies, Fourth Generation, with Reflexes (03/18/2023 9:47 AM EST) [facility] HIV AB/AG Nonreactive Nonreactive [facility] Comment:HIV-1 p24 Ag and/or HIV-1/HIV-2 Ab not detected.A test result that is nonreactive does not exclude thepossibility of exposure to or infection with HIV-1 and/orHIV-2. Nonreactive results in this assay for individualswith prior exposure to HIV-1 and/or HIV-2 may be due toantigen and antibody levels that are below the limit ofdetection of this assay.The Team [employer] HIV Ag/Ab Combo assay result andsupplemental assay results should be interpreted inconjunction with the patient's clinical presentation,history and other laboratory results. If the results areinconsistent with clinical evidence, additional testing issuggested to confirm the result. Blood Venous blood specimen / Unknown 03/18/2023 9:47 AM EST 03/18/2023 11:16 AM EST us Iva Howard MD LAB BLOOD ORDERABLES Fin al Result Performing Organization Address [facility]/ZIP Co de Phone Number [facility] [address] [place] [phone] [phone] * (ABNORMAL) Lipid Panel with Reflex to Direct LDL (02/13/2023 9:58 AM EST) Triglycerides 111 <150 mg/dL [facility] Comment:Desirable Triglyceri de: less than 150 mg/dLBorderline High Triglyceride 150-199 mg/dLHigh Triglyceride: 200-499 mg/dLVery High Triglyceride: greater than or equal to 5OO mg/dL Cholesterol 186 <200 mg/dL [facility] Comment:Desirable Cholestero l: less than 200 mg/dLBorderline High Cholesterol: 200-239 mg/dLHigh Cholesterol: greater than 239 mg/dL LDL Cholesterol Calculated 118(H) <100 mg/dL [facility] Comment:Desirable LDL: less than 100 mg/dLNear Optimal/Above Optimal LDL: 110- 129 mg/dLBorderline High LDL: 130-159 mg/dLHigh LDL: 160-189 mg/dLVery High LDL: greater than or equal to 190 mg/dL HDL Cholesterol 46 >40 mg/dL [facility] Comment:Desirable HDL: great er than 40 mg/dL Note: This HDL assay may give artificially low results in patients with liver disease. Blood 02/13/2023 9:58 AM EST 02/13/2023 11:01 AM EST us Iva Howard MD LAB BLOOD ORDERABLES Fin al Result [facility] [address] [place], [place] [phone] * Hepatitis Panel, General (02/13/2023 9:58 AM EST) Hepatitis A IgM Nonreactive Nonreactive [facility] Comment:IgM antibodies to VALDERRAMA V not detected; does not exclude earlyacute or recovered HAV infection. ~Hepatitis B Surface Antibody NONREACTIVE Nonreactive [facility] Comment:Nonreactive: < 8.00 mIU/mL Hepatitis B Core Antibody Nonreactive Nonreactive [facility] Hepatitis C Antibody Nonreactive Nonreactive [facility] Comment:Antibodies to HCV no t detected; does not exclude early acuteHCV infection. Hepatitis B Surface Ag Negative Negative [facility] Blood 02/13/2023 9:58 AM EST 02/13/2023 11:01 AM EST Iva Howard MD LAB BLOOD ORDERABLES Fin al Result [facility] [address] [place] [phone] * Hm Pap Smear (01/23/2021) Pap Negative for intraephithelial lesion or malignancy Negative for intraephithelial lesion or malignancy, Other HPV Undetected Undetected, Indeterminate, Quantitative, Not Detected Historical Provider HEALTH MAINTENANCE Edited Result - Final * Pap Smear (01/23/2021 12:00 AM EDT) Swab Historical Provider LAB CYTOLOGY ORDERABLES F inal Result [facility] [address] [place] [phone] from Last 3 Months or Most Recently Relevant to Health Maintenance Insurance * Guarantor: Morenita Abbott Account Type Relation to Patient Date of Phone Billing Address Personal/Family Self 1995 [address] [place] [address] [facility] [employer] Care Teams Research Program Assistant Relationship Specialty Start Date End Date vIa Howard MD [address] [place] [phone] PCP - General Family Medicine 12/23/17
== END 2025-03-29 17:02 | disposition home or self-care (01) ==
PROVIDERS: Emergency Provider Emergency Medicine; PCP Internal Medicine
DX: T78.2XXA Anaphylactic shock, unspecified, initial encounter (principal); X58.XXXA Exposure to other specified factors, initial encounter
CPT/HCPCS: 96374; 96375; 99283; 99284; J1200; J1308; J2919